=== PATIENT | male | born 1935 | race African-American/Black ===

== ENCOUNTER → 2018-07-31 09:59 | Outpatient (CLI) | payer MEDICARE, SELFPAY ==
--- NOTE | 2018-07-31 10:10 | NM_ITS ---
CLINICAL: 83-year-old male with reported history of clinical hyperthyroidism. I-123 THYROID UPTAKE and SCAN COMPARISON: None available FINDINGS: The patient was administered a 298 uCi I-123 capsule by mouth. The 4-hour I-123 radioactive iodine thyroidal uptake was calculated to be 92.1 % (normal 5 to 25 %). The 24-hour I-123 radioactive iodine thyroidal uptake was calculated to be 72.6 % (normal 5 to 40 %). The I-123 thyroid scan demonstrates homogeneous radiopharmaceutical concentration throughout the right lobe of a prominent sized U-shaped thyroid gland. The left lobe is larger than right. A hypofunctioning-cold nodule is demonstrated in the inferior pole of the left lobe of thyroid colloid and apparent thyroid isthmus. NM/Thyroid Uptake Single or Mult IMPRESSION: 1. ABNORMAL, ELEVATED 4- and 24-hour I-123 radioactive iodine thyroidal uptakes. 2. The I-123 thyroid scan in conjunction with the calculated iodine uptake values is consistent with the presence of a diffuse toxic goiter. 3. The hypofunctioning-cold nodule delineated in the left lobe thyroid colloid may be further investigated with thyroid ultrasound. 4. There is scintigraphic evidence of rapid intra-thyroid iodine turnover; manifest as the elevated early (4-hour) radioactive iodine uptake value exceeding the late (24-hour) uptake value, which may be associated with a 50% failure rate with I-131 therapy. This may necessitate anti-thyroid pharmacologic intervention with repeat thyroid scan and uptake to ensure resolution of this presentation and success of anticipated I-131 therapeutic intervention. (Magalis et al, J Nucl Med 36: 14P, 1994). Electronically Signed: Emerson Reardon DO at 23:40 EDT Tel , Service support ,
== END ==
PROVIDERS: Family Provider Family Medicine; PCP Family Medicine; Referring Provider Internal Medicine Endocrinology, Diabetes & Metabolism; Visit Provider Internal Medicine Endocrinology, Diabetes & Metabolism
DX: E05.00 Thyrotoxicosis with diffuse goiter without thyrotoxic crisis or storm (principal)
CPT/HCPCS: 78012; A9516

== ENCOUNTER → 2018-11-22 10:45 | Outpatient (CLI) | payer MEDICARE, SELFPAY ==
[2018-10-05 09:31] VITALS: BMI 30.7
--- NOTE | 2018-11-22 10:47 | ECHOD_ITS ---
Reason For Study: Afib/Flutter Procedure This was a 2D Doppler, Color Flow transthoracic echocardiogram. Exam performed in department. Left Ventricle Normal LV size. Left ventricular systolic function is normal. The estimated ejection fraction is 60 %. Unable to assess diastolic dysfunction due to arrhythmia. No regional wall motion abnormalities noted. Right Ventricle Normal RV size. Normal systolic function. Atria The left atrium is moderately enlarged. The right atrium is mildly enlarged. Mitral Valve Normal mitral valve. Mild (1+) eccentric mitral valve insufficiency. Tricuspid Valve Normal tricuspid valve. Mild to moderate (1-2+) tricuspid valve insufficiency. Right ventricular systolic pressure estimated to be 53 mmHg. Moderate pulmonary hypertension. Aortic Valve Trisinus/trileaflet aortic valve. Mild focal aortic valve calcification. Mild (1+) aortic valve insufficiency. Pulmonic Valve Normal pulmonic valve. Great Vessels Normal aortic root. The pulmonary artery is normal size. Normal inferior vena cava. Pericardium/Pleural No pericardial effusion. MMode/2D Measurements & Calculations LVIDd: 3.8 cm IVSd: 1.0 cm LA dimension: 3.8 cm LVIDs: 2.3 cm LVPWd: 0.90 cm RVDd: 4.8 cm FS: 39.1 % LAV(MOD-bp): 99.1 ml LA A4 area: 30.0 cm2 RA A4 area: 24.5 cm2 LAV(MOD-bp) Indexed: 47.0 ml/m2 LAV(MOD-sp2): 93.6 ml LAV(MOD-sp4): 101.9 ml Doppler Measurements & Calculations MV E max kathleen: 109.2 cm/sec Ao V2 max: 129.4 cm/sec AI max kathleen: 355.2 cm/sec Ao max P.7 mmHg AI max P.5 mmHg AI dec slope: 107.3 cm/sec2 AI P1/2t: 969.7 msec LV V1 max: 84.1 cm/sec PA V2 max: 108.3 cm/sec TR max kathleen: 364.8 cm/sec LV V1 max P.8 mmHg TR max P.2 mmHg Interpretation Summary Normal LV size. Left ventricular systolic function is normal. The estimated ejection fraction is 60 %. Unable to assess diastolic dysfunction due to arrhythmia. The left atrium is moderately enlarged. Mild (1+) eccentric mitral valve insufficiency. Right ventricular systolic pressure estimated to be 53 mmHg. Moderate pulmonary hypertension. Mild (1+) aortic valve insufficiency. Ordering Physician: Mandeep Jung Referring Physician: Mandeep Jung Performed By: Ravindra Spencer RCS
== END ==
PROVIDERS: Family Provider Family Medicine; PCP Family Medicine; Referring Provider Internal Medicine Cardiovascular Disease; Visit Provider Internal Medicine Cardiovascular Disease
DX: I27.21 Secondary pulmonary arterial hypertension (principal)
CPT/HCPCS: 93306

== ENCOUNTER → 2019-01-16 14:01 | Outpatient (CLI) | payer MEDICARE, SELFPAY ==
[2018-12-08 14:56] VITALS: BMI 29.7
--- NOTE | 2019-01-16 14:00 | ASPIG_PTH ---
PATIENT: JEAN PAUL GEE SR LOC: U#:[id number] AGE/SX: 89/M ROOM: RE01/16/[address]: Dr. Phoebe Vazquez MD : 1935 BED: DIS: SPEC #: [id number] RECD: 01/17/19 09:11 STATUS: DUSTIN NILSA #: [id number] EVA: 01/16/19 14:[address]: Phoebe Vazquez DEPT: CYTOLOGY RECD BY: José Luis Goldman ENTERED: 01/17/19 09:11 SP TYPE: ASP OUT OTHR DR: Dr. Dayron Adamson MD Tissues: Thyroid gland, NOS Procedures: FNA Specimen Adequacy Special Stain Group II Surgery Specimen Level IV Cytology Other HEADER OPERATION: Left thyroid nodule biopsy PRE-OP DIAGNOSIS: Left thyroid nodule TISSUE SUBMITTED: Left lobe thyroid nodule, ultrasound-guided FNA DIAGNOSIS CYTOLOGY Left thyroid lobe nodule, ultrasound-guided FNA (smears and cell block): Consistent with follicular nodule with extensive cystic changes, focal H?rthle features and mild atypia. Adequate for evaluation. See comment. SJ:rg 01/18/19 COMMENT The specimen is evaluated at the time of FNA by Dr. Vo. Immediate Evaluation: Set #1 - Mostly macrophages are noted. Set #2 - Mostly macrophages are noted. Correlation with clinical, radiologic findings and appropriate follow up are necessary. Case has been reviewed in consultation with Dr. Henning who concurs with the above diagnosis. IDC:AM CYTOLOGY STUDY Slides are reviewed. CYTOLOGY GROSS Set #1 - Received in two passes is 0.4 ml of bloody fluid labeled with the patient's name, and designated left thyroid lobe nodule. Six imprints and four paps are made from the submitted fluid and the rest is added to CytoLyt for cell block preparation. Submitted for cytology study. Set #2 - Received in one pass is 0.1 ml of bloody fluid labeled with the patient's name, and designated left thyroid lobe nodule. Four imprints and two paps are made from the submitted fluid and the rest is added to CytoLyt for cell block preparation. Submitted for cytology study. / VENU:mychal 01/16/19 TC:5 CPT: 84834, 50029, 20225, 82999
--- NOTE | 2019-01-16 14:06 | US_ITS ---
PROCEDURE: ULTRASOUND GUIDED LEFT THYROID FNA/BIOPSY. DATE: January 16, 2019. INDICATION: Male, 83 years old. Left thyroid nodule PHYSICIAN: Dre Jimenez M.D. MEDICATIONS: 2% lidocaine administered subcutaneously for local anesthesia. ACCESS SITE: Left - anterior approach. NEEDLE: 25-gauge FNA needle. SPECIMEN: Multiple FNA specimen collected and given to pathology. EBL: None. COMPLICATIONS: None immediate. PROCEDURE: The risks, benefits, and alternatives to the procedure were explained to the patient. The specific risk of hemorrhage requiring further treatment or intervention was detailed and accepted. Written informed consent was obtained. The patient was brought into the ultrasound room and placed in the supine position on the stretcher. An appropriate entry site was identified. The overlying skin was prepped and draped in the usual sterile fashion. 2% lidocaine was administered subcutaneously for local anesthesia. Under ultrasound guidance, a 25-gauge FNA needle was advanced into the lesion. Aspiration was performed and the needle was withdrawn. A total of 4 passes were performed with specimen collected and given to the pathologist who was present during the procedure. Hemostasis was achieved with manual compression. Repeat ultrasound images of the biopsy area was performed which demonstrated no gross bleeding or hematoma. An antibiotic ointment dressing was placed and the patient was given an icepack. The patient tolerated the procedure well without immediate complications. The patient was discharged in stable condition. US/FNA 1st Biopsy w/ US IMPRESSION: Successful ultrasound-guided left thyroid nodule FNA/biopsy, as described above. Electronically Signed: Dre Jimenez, at 15:45 EDT , Service support ,
== END ==
PROVIDERS: Family Provider Family Medicine; PCP Family Medicine; Referring Provider Internal Medicine Endocrinology, Diabetes & Metabolism; Visit Provider Internal Medicine Endocrinology, Diabetes & Metabolism
DX: E04.1 Nontoxic single thyroid nodule (principal)
CPT/HCPCS: 10005; 88161; 88172; 88305; 88313

== ENCOUNTER → 2019-06-28 13:09 | Outpatient (CLI) | payer MEDICARE, SELFPAY ==
[2018-10-05 09:31] VITALS: BMI 30.7
[2019-06-25 12:41] VITALS: BMI 30.1
--- NOTE | 2019-06-28 13:15 | US_ITS ---
STUDY: THYROID ULTRASOUND REASON FOR EXAM: Male, 84 years old. COLD NODULE TECHNIQUE: Ultrasound evaluation of the thyroid was performed with real-time and static iyer-scale imaging. COMPARISON: Thyroid uptake July 31, 2018 FINDINGS: RIGHT LOBE: The right lobe of the thyroid gland measures 6.1 x 2.9 x 1.9 cm. There is a heterogeneous echotexture. Multiple thyroid nodules. Dominant nodules: 1.1 x 1.6 x 1.1 cm solid nodule regular in shape with intranodular vascularity and a 1.4 x 1.4 x 1.2 cm solid regular nodule with intranodular vascularity. LEFT LOBE: The left lobe of the thyroid gland measures 9.6 x 4.9 x 4.8 cm. There is a heterogeneous echotexture. The dominant nodule is 3.9 x 4.3 x 3.7 cm in the lower pole. This is a solid irregular nodule. Portion of the left thyroid is below the field of view. ISTHMUS: The isthmus measures 6 millimeter. US/Thyroid IMPRESSION: Enlarged multinodular thyroid with generally heterogeneous parenchyma. There are 2 dominant solid well-defined and regular nodules of the right thyroid measuring 1.1 x 1.6 x 1.0 cm and 1.4 x 1.4 x 1.2 cm. There is a dominant solid nodule of the left thyroid lower pole measuring 3.9 x 4.3 x 3.7 cm. A portion of the left thyroid is not visible below the clavicle. No images are provided from the fine needle biopsy performed on January 16, 2019. However, the measurement of the biopsied nodule does not appear to be substantially different from today''s exam. Electronically Signed: Radha White MD at 18:56 EST , Service support ,
== END ==
PROVIDERS: Family Provider Family Medicine; PCP Family Medicine; Referring Provider Internal Medicine Endocrinology, Diabetes & Metabolism; Visit Provider Internal Medicine Endocrinology, Diabetes & Metabolism
DX: E04.1 Nontoxic single thyroid nodule (principal)
CPT/HCPCS: 76536

== ENCOUNTER → 2020-04-16 13:44 | Outpatient (CLI) | payer MEDICARE, SELFPAY ==
[2019-06-25 12:41] VITALS: BMI 30.1
[2020-02-12 13:45] VITALS: BMI 29.2
--- NOTE | 2020-04-16 13:49 | US_ITS ---
STUDY: THYROID ULTRASOUND REASON FOR EXAM: Male, 85 years old. Nodule TECHNIQUE: Ultrasound evaluation of the thyroid was performed with real-time and static iyer-scale imaging. COMPARISON: Comparison is made with prior examination dated 06/28/2019. FINDINGS: RIGHT LOBE: The right lobe of the thyroid gland is enlarged and measures 6.2 cm x 2.9 cm x 2.6 cm. There is a heterogeneous echotexture. Once again, 4 nodules are seen. There is a stable dominant nodule measuring 1.1 cm x 1.1 cm x 0.7 cm with the perinodular flow. A similar-appearing nodule measuring 1.1 cm x 1.17 x 1.2 cm is seen in the inferior pole with satish and infrahilar nodular flow. There is also evidence of a 1.1 cm x 1 cm x 1.2 cm heterogeneous isoechoic solid nodule in the lower pole with satish and infrahilar nodular flow. LEFT LOBE: The left lobe of the thyroid gland is enlarged and measures 9.4 cm x 6.8 ANDRA by 4.1 cm. There is a heterogeneous echotexture. There is a dominant nodule measuring 4.4 cm x 5.4 cm x 4.4 cm in the lower pole. This has increased in size as compared to prior study. ISTHMUS: The isthmus measures 16 mm. The regional lymph nodes are normal. US/Thyroid IMPRESSION: Bilateral enlargement of the thyroid worse on the left side with the dominant solid nodules in both lobes worse in the left lobe measuring 5.4 cm x 4.4 cm by 4.4 cm. This has increased in size as compared to prior study. Electronically Signed: Dre Jimenez, at 9:49 EST , Service support ,
== END ==
PROVIDERS: PCP Family Medicine; Referring Provider Internal Medicine Endocrinology, Diabetes & Metabolism; Visit Provider Internal Medicine Endocrinology, Diabetes & Metabolism
DX: E04.1 Nontoxic single thyroid nodule (principal); E55.9 Vitamin D deficiency, unspecified; I48.91 Unspecified atrial fibrillation; E05.00 Thyrotoxicosis with diffuse goiter without thyrotoxic crisis or storm
CPT/HCPCS: 76536

== ENCOUNTER → 2021-04-27 14:49 | Outpatient (CLI) | payer MEDICARE, SELFPAY ==
--- NOTE | 2021-04-27 15:00 | US_ITS ---
EXAM: US Soft Tissues Head and Neck, Thyroid CLINICAL INDICATION: 86 years old, Male; NODULE TECHNIQUE: Greyscale and color doppler imaging was performed of the thyroid gland. This report was created using [employer] report [employer] technology. COMPARISON: None. FINDINGS: Left thyroid lobe: 2.8 x 2.1 x 2.3 cm nodule in the mid left thyroid lobe. 3.2 x 2.8 x 2.9 cm nodule in the inferior left thyroid lobe. The left thyroid lobe measures 10.9 x 5.2 x 4.9 cm. Smaller nodules are present in the left thyroid lobe for which no follow-up is necessary. Homogeneous echotexture with normal vascularity. Right thyroid lobe: 1.4 x 1.5 x 1.6 cm nodule in the inferior right thyroid lobe. The right thyroid lobe measures 6.1 x 2.9 x 2.3 cm. Smaller nodules are present in the right thyroid lobe for which no follow-up is necessary. Homogeneous echotexture with normal vascularity. Isthmus: The isthmus measures 7 mm in thickness. No thyroid nodules are present. US/Thyroid IMPRESSION: 1. Thyromegaly with multiple thyroid nodules consistent with multinodular goiter. 2. 1.4 x 1.5 x 1.6 cm nodule in the inferior right thyroid lobe. 3. 2.8 x 2.1 x 2.3 cm nodule in the mid left thyroid lobe. 4. 3.2 x 2.8 x 2.9 cm nodule in the inferior left thyroid lobe. RECOMMENDATIONS: 1. 1.4 x 1.5 x 1.6 cm nodule in the inferior right thyroid lobe. This nodule is mixed cystic and solid, hyperechoic or isoechoic, [id number], smoothly marginated and contains no echogenic foci. This nodule is not suspicious and no FNA or follow-up is necessary. 2. 2.8 x 2.1 x 2.3 cm nodule in the mid left thyroid lobe. This nodule is mixed cystic and solid, hyperechoic or isoechoic, [id number], smoothly marginated and contains no echogenic foci. This nodule is mildly suspicious. Recommend FNA evaluation. 3. 3.2 x 2.8 x 2.9 cm nodule in the inferior left thyroid lobe. This nodule is solid or almost completely solid, hypoechoic, [id number]-[id number], smoothly marginated and contains no echogenic foci. This nodule is moderately suspicious. Recommend FNA evaluation. Electronically Signed: Sebastian Gallagher MD at 6:17 EST Tel , Service support ,
== END ==
PROVIDERS: PCP Family Medicine; Referring Provider Internal Medicine Endocrinology, Diabetes & Metabolism; Visit Provider Internal Medicine Endocrinology, Diabetes & Metabolism
DX: E04.1 Nontoxic single thyroid nodule (principal)
CPT/HCPCS: 76536

== ENCOUNTER 2022-01-16 06:55 | Inpatient (IN) | payer MEDICARE, SELFPAY ==
[2022-01-16] VITALS (40 sets, daily range): BP systolic 69–124; BP diastolic 48–104; PULSE 11–167; RESP 13–25; TEMP 35.9–37.8; O2SAT 93–100; BMI 27.6; BMI 26.3
--- NOTE | 2022-01-16 07:12 | RAD_ITS ---
EXAM: XR CHEST, 1 VIEW CLINICAL INDICATION: hypotension TECHNIQUE: Frontal view of the chest. This report was created using [employer] report generation technology. COMPARISON: XR Chest dated december 14 2016 FINDINGS: LUNGS AND PLEURAL SPACES: Bibasilar pulmonary densities suggestive of atelectasis. No pneumothorax. No effusion. HEART: Normal heart size. MEDIASTINUM: Trachea is shifted to the right of midline at the thoracic inlet which may be secondary to enlarged thyroid gland. BONES/JOINTS: No acute abnormality. SOFT TISSUES: See above. UPPER ABDOMEN: Elevated left hemidiaphragm. RAD/Chest 1 View (Portable) IMPRESSION: Bibasilar atelectasis. As above. Electronically Signed: Ford Alvarez MD at 7:56 EDT ,
--- NOTE | 2022-01-16 07:13 | EKG12_ITS ---
Test Reason : DIZZY Blood Pressure : / mmHG Vent. Rate : 139 BPM Atrial Rate : 000 BPM P-R Int : 000 ms QRS Dur : 094 ms QT Int : 306 ms P-R-T Axes : 000 -12 -16 degrees QTc Int : 465 ms Atrial fibrillation with rapid ventricular response with premature ventricular or aberrantly conducte d complexes Nonspecific ST abnormality Abnormal ECG Confirmed by AILYN CRAFT, SAURABH ([id number]), online editor DEBBY CULVER ([id number]) on 01/19/2022 9:03:14 AM Referred By: PETERSON Confirmed By:AJ ROBERTSON MD
--- NOTE | 2022-01-16 07:14 | EX.ED.DYSGE1 ---
HPI History of Present Illness Chief Complaint: Dizziness Informant: patient and spouse/S.O. Narrative Narrative: 86-year-old male with a history of CHF persistent atrial fibrillation and pulmonary hypertension presenting to the emergency room with near syncope and weakness. Patient was noted this morning to have almost fallen at home. He felt very lightheaded/dizzy. He is on apixaban for persistent atrial fibrillation. He has not required any medication changes recently. His notes that he really has not ate much for 3 days. He denies any pain or fever. He denies shortness of breath or leg swelling. [facility] Medical History BPH (benign prostatic hyperplasia) BPH loc w urin obs/LUTS Chronic diastolic heart failure Essential (primary) hypertension Graves disease Longstanding persistent atrial fibrillation Nonrheumatic tricuspid (valve) insufficiency Secondary pulmonary arterial hypertension Home Medications acetaminophen 325 mg tablet 650 mg PO Q6H PRN PRN Fever 12/21/16 [Rx Last Taken Unknown] mirtazapine 15 mg tablet 15 mg PO 2100 #30 tabs 12/21/16 [Rx Last Taken Unknown] tamsulosin 0.4 mg capsule 0.4 mg PO DAILY #90 caps 12/08/18 [Rx Last Taken Unknown] apixaban 5 mg tablet 5 mg PO BID #180 tabs 01/26/21 [Rx Last Taken Unknown] furosemide 40 mg tablet (Lasix) 40 mg PO DAILY #90 tabs 02/16/21 [Rx Last Taken Unknown] lisinopril 5 mg tablet 5 mg PO DAILY #90 tabs 02/17/21 [Rx Last Taken Unknown] metoprolol tartrate 50 mg tablet 50 mg PO BID #180 tabs 05/18/21 [Rx Last Taken Unknown] methimazole 5 mg tablet 15 mg PO DAILY 01/16/22 [History Last Taken Unknown] Allergy/AdvReac Type Severity Reaction Status Date / Time rivaroxaban [From Xarelto] AdvReac Severe hematuria Verified 01/16/22 07:01 Penicillins [PCN] AdvReac dont Verified 01/16/22 07:01 remember its long time ago Surgical History History of hernia repair Social History Smoking Status: Never smoker alcohol intake: never substance use type: does not use ROS ROS ED Constitutional Constitutional ED: Denies chills or weight loss Eyes Eyes: Denies change in vision or diplopia ENT ENT ED: Denies ear pain, rhinorrhea or sore throat Cardiovascular Cardiovascular: Denies chest pain, orthopnea, palpitations or racing heartbeat Respiratory/Chest Respiratory/Chest: Denies cough, dyspnea or orthopnea Gastrointestinal Gastrointestinal: Denies abdominal pain, diarrhea, nausea or vomiting Genitourinary Genitourinary ED: Denies dysuria, hematuria or urinary frequency Musculoskeletal Musculoskeletal: Denies arthralgias or myalgias Integumentary Denies abscess or rash Neurologic Neurologic: Reports weakness; Denies headache(s) or paresthesias Psychiatric Psychiatric: Denies anxiety, depression, suicidal ideation or suicidal thoughts Endocrine Endocrinology: Denies polydipsia, polyphagia or polyuria Allergic/Immunologic Allergic/Immunologic ED: Denies mouth swelling, tongue swelling or urticaria EXAM Physical Exam Const Vital Signs: 01/16/22 06:56 01/16/22 07:03 01/16/22 07:04 Temperature 96.6 F L Temperature Source Temporal Pulse Rate 150 H 167 H Respiratory Rate 23 H 19 H Respiratory Effort Normal Respiratory Pattern Normal Blood Pressure 82/54 L Blood Pressure Mean 63 Pulse Ox 96 Oxygen Delivery Method Room Air Room Air 01/16/22 08:03 01/16/22 08:52 Temperature 96.6 F L Temperature Source Temporal Pulse Rate 107 H 132 H Respiratory Rate 24 H 24 H Respiratory Effort Respiratory Pattern Blood Pressure 81/57 L 80/53 L Blood Pressure Mean 65 62 Pulse Ox 97 96 Oxygen Delivery Method Room Air Positive well nourished and well developed General Appearance ED: well developed HEENT Reports normocephalic, head/scalp atraumatic and moist mucous membranes Eyes PERRL and EOMs intact bilaterally Neck no lymphadenopathy, supple and no JVD Resp normal respiratory effort and clear to auscultation bilaterally Cardio no murmurs Rate: tachycardic and other Rhythm: abnormal rhythm irregularly irregular GI normal to inspection, nondistended, normoactive bowel sounds and non-tender Palpation: soft Back/Spine no CVA tenderness and normal ROM Extremity normal to inspection General Extremety ED: Negative for edema General Extremity: Negative for edema Neuro oriented x3 and CN's II-XII intact bilaterally Sensorium / Orientation: alert Motor Exam: strength 5/5 throughout Psych mental status grossly normal Mood & Affect: Negative for depressed or tearful Skin no rashes or lesions noted and no wounds MDM MDM MDM Narrative Medical decision making narrative: Patient's white count 19.2 with a hemoglobin of 14.4. Creatinine significantly elevated off baseline at 3 with a BUN of 74. Potassium 3.5 sodium 137. Anion gap is elevated at 18 with a lactic acid level of 9.7. My interpretation of the chest x-ray is no acute process. CT of the abdomen pelvis demonstrates a acute small bowel obstruction located in the mid abdomen and most likely due to prior adhesions. 2017 the patient underwent a laparotomy for small bowel obstruction with Dr. Thao and Dr. Simmons. His blood pressures have been improving with fluids. He received Cipro Flagyl and NG tube was placed. Post placement film was read by myself is an adequate positioning of the NG tube. The NG tube was pulled back and advanced. Multiple nurses and attempts were made with unsuccessful placement of the NG tube. The patient requested a break in attempts. I discussed the case with Dr. Ramey (Surgery) and Dr Concepcion (IM). Plan is admission into the ICU. Sepsis reeval: Patient was reexamined multiple times during his ED course. His mentation continues to be normal. He still has good capillary refill. The abdomen continues to be benign. Given his exam and his dehydration and the fact that he is on full anticoagulation and responding to fluids I do not think he needs a central line at this time. I think we should continue fluid resuscitation. Lab Data Attestation: I reviewed the patient's lab results. Labs: Laboratory Results - last 24 hr 01/16/22 01/16/22 01/16/22 07:07 07:07 07:07 WBC 19.2 H RBC 4.74 Hgb 14.4 Hct 41.5 MCV 87.6 MCH 30.4 MCHC 34.7 RDW Std Deviation 40.3 RDW Coeff of Anatoly 12.6 Plt Count 240 MPV 10.7 Immature Gran % (Auto) 0.600 Neut % (Auto) 83.4 H Lymph % (Auto) 6.2 L [place] % (Auto) 9.7 Eos % (Auto) 0.0 Baso % (Auto) 0.1 Absolute Neuts (auto) 16.0 H Absolute Lymphs (auto) 1.19 Nucleated RBC % 0 Differential Comment SCANNED Diff Path Review May foll PT 20.9 H INR 1.8 APTT 30.3 Sodium 137 Potassium 3.5 Chloride 90 L Carbon Dioxide 29.0 Anion Gap 18 H BUN 74 H Creatinine 3.04 H Estim Creat Clear Calc 18.01 Est GFR (MDRD) Af Amer 25 L Est GFR (MDRD) Non-Af 21 L BUN/Creatinine Ratio 24.3 H Glucose 195 H Lactic Acid Calcium 9.6 Magnesium 2.3 Total Bilirubin 1.30 H AST 9 L ALT 13 L Alkaline Phosphatase 62 Troponin I High Sens 66 Total Protein 8.2 Albumin 3.7 Globulin 4.5 H Albumin/Globulin Ratio 0.8 L Urine Color Urine Clarity Urine pH Ur Specific [place] Urine Protein Urine Glucose (UA) Urine Ketones Urine Occult Blood Urine Nitrite Urine Bilirubin Urine Urobilinogen Ur Leukocyte Esterase Urine RBC Urine WBC Ur Squamous Epith Cells Urine Bacteria Urine Mucus POC Glucose 01/16/22 01/16/22 01/16/22 07:07 07:23 08:48 WBC RBC Hgb Hct MCV MCH MCHC RDW Std Deviation RDW Coeff of Anatoly Plt Count MPV Immature Gran % (Auto) Neut % (Auto) Lymph % (Auto) [place] % (Auto) Eos % (Auto) Baso % (Auto) Absolute Neuts (auto) Absolute Lymphs (auto) Nucleated RBC % Differential Comment Diff Path Review PT INR APTT Sodium Potassium Chloride Carbon Dioxide Anion Gap BUN Creatinine Estim Creat Clear Calc Est GFR (MDRD) Af Amer Est GFR (MDRD) Non-Af BUN/Creatinine Ratio Glucose Lactic Acid 9.7 H* Calcium Magnesium Total Bilirubin AST ALT Alkaline Phosphatase Troponin I High Sens Total Protein Albumin Globulin Albumin/Globulin Ratio Urine Color Yellow Urine Clarity Clear Urine pH 5.0 Ur Specific [place] 1.015 Urine Protein 30 H Urine Glucose (UA) Normal Urine Ketones Negative Urine Occult Blood Negative Urine Nitrite Negative Urine Bilirubin 3 H Urine Urobilinogen Normal Ur Leukocyte Esterase 25 H Urine RBC 0 SEEN Urine WBC 0 SEEN Ur Squamous Epith Cells 0 SEEN Urine Bacteria 0 SEEN Urine Mucus 1+ POC Glucose 190 H Radiography Diagnostic Testing: Clinical Impression(s) from Imaging Studies Chest X-Ray 01/16/22 07:12 IMPRESSION: Bibasilar atelectasis. As above. Electronically Signed: Ford Alvarez MD at 7:56 EDT , Abdomen/Pelvis CT 01/16/22 07:51 IMPRESSION: 1. High-grade small bowel obstruction related to adhesions within the left-side of the mid abdomen likely. 2. Left inguinal hernia containing small bowel. 3. Stable hepatic hemangiomata. Electronically Signed: Ford Alvarez MD at 8:56 EDT , ADDENDUM: 01/16/22 0903 IMPRESSION: 1. High-grade small bowel obstruction related to adhesions within the left-side of the mid abdomen likely. 2. Left inguinal hernia containing small bowel. 3. Stable hepatic hemangiomata. N.B. : The above Results were Read Back by Ford Alvarez MD to Luis Gannon DO, and understanding confirmed on 01/16/2022 08:56:59 (ET). Electronically Signed: Ford Alvarez MD at 8:56 EDT , EKG Initial EKG: Attestation: I personally reviewed and interpreted this EKG as follows: Comments: Atrial fibrillation with rapid ventricular response. Ventricular rate of 139 bpm. PVC noted Critical Care Time Critical Care Time: Yes Critical care time (excluding procedures): 30-74 minutes (35 min), Including time spent:, Discussing w/Patient &/or Family/Alto Singer, Discussing w/Consultants and Arranging Admission or Transfer Discharge Plan Dx/Rx/DC Orders Clinical Impression: Atrial fibrillation with RVR, Acute hypotension, Acute renal failure, SBO (small bowel obstruction), Inguinal hernia, Acute dehydration Disposition Disposition: Acute Care [facility]
[2022-01-16] MEDS: Metoprolol Tartrate 5 MG/5 ML Vial IV (07:18)
[2022-01-16] MEDS: 0.9% Normal Saline 1,000 ML 1000 ML IV (07:19)
[2022-01-16 07:25] LABS: Bedside Glucose 190 mg/dL (74-106)
[2022-01-16 07:26] LABS: Absolute Lymphocyte Count 1.19 X10^3/uL (0.83-4.51); Basophil# 0.02 X10^3/uL; Basophil% 0.1 % (0-1); Hematocrit 41.5 % (40-54); Hemoglobin 14.4 g/dL (13.0-16.5); Lymphocyte # 1.19 X10^3/ul (0.83-4.51); Lymphocyte % 6.2 % (19-41); Mean Corp Hgb Conc 34.7 g/dL (32-36); Mean Corpuscular Hgb 30.4 pg (27.0-32.0); Mean Corpuscular Volume 87.6 fL (80-94); Mean Platelet Vol. 10.7 fl (6.2-12.0); Monocyte# 1.86 X10^3/uL; Monocyte% 9.7 % (0-10); NRBC Flagged by Analyzer 0 % (0-5); Neutrophil # 15.96 X10^3/uL (2.7-7.7); Neutrophil % 83.4 % (47-70); POSITIVE DIFFERENTIAL YES; Platelet Count 240 K/mm3 (150-450); RBC Distribution Width CV 12.6 % (11.6-14.6); RBC Distribution Width SD 40.3 fl (35.1-43.9); Red Blood Count 4.74 M/mm3 (4.6-6.2); White Blood Count 19.2 K/mm3 (4.4-11.0)
[2022-01-16 07:33] LABS: Differential Indicated SCAN CRITERIA MET
[2022-01-16 07:38] LABS: International Normalized Ratio 1.8; Prothrombin Time (Protime)PT. 20.9 SECONDS (11.7-14.9)
[2022-01-16 07:39] LABS: Partial Thromboplast Time 30.3 Seconds (24.1-36.2)
[2022-01-16 07:46] LABS: ALB/GLOB Ratio 0.8 RATIO (0.9-2.4); AST(SGOT) 9 U/L (15-37); Alanine Aminotransfer ALT/SGPT 13 U/L (16-61); Albumin, Serum 3.7 g/dL (3.2-5.0); Alkaline Phosphatase 62 U/L (45-117); Anion Gap 18 (5-15); BUN 74 mg/dL (7-18); BUN/Creat Ratio 24.3 RATIO (10-20); Calcium,Total 9.6 mg/dL (8.5-10.1); Chloride 90 mmol/L (98-107); Creatinine, Serum 3.04 mg/dL (0.70-1.30); EST Glomerular Filtration Rate 21 mL/min (>60); Est Glom Filt Rate - Afr Amer 25 mL/min (>60); Estimated Creatinine Clearance 18.01 ml/min; Globulin 4.5 g/dL (2.2-4.2); Glucose 195 mg/dL (74-106); Magnesium 2.3 mg/dL (1.6-2.6); Potassium 3.5 mmol/L (3.5-5.1); Protein, Total 8.2 g/dL (6.4-8.2); Sodium Level 137 mmol/L (136-145); Troponin-I HS 66 pg/mL (3.0-78.0)
--- NOTE | 2022-01-16 07:51 | CT_ITS ---
We are attempting to reach an attending provider to discuss findings. An addendum with communication details will be sent when the communication is complete. EXAM: CT ABDOMEN AND PELVIS WITHOUT INTRAVENOUS CONTRAST CLINICAL INDICATION: vomiting TECHNIQUE: Helically acquired images were obtained of the abdomen and pelvis without intravenous contrast. This CT exam was performed using one or more of the following dose reduction techniques: automated exposure control, adjustment of the mA and/or kV according to patient size, and/or use of iterative reconstruction technique. This report was created using [email or web address] report generation technology. COMPARISON: CT Abdomen Pelvis dated 12/05/2016 FINDINGS: LOWER THORAX: Small bilateral pleural effusions and mild bibasilar atelectasis. Heart is mildly enlarged. ABDOMEN: LIVER: 2.4 cm hypodense area within hepatic segment 8 and 3.4 cm lesion within hepatic segment 6 again seen with prior noted enhancement pattern indicative of hemangiomata. GALLBLADDER AND BILE DUCTS: Normal. No calcified gallstones. No gallbladder distention or wall edema. No intra- or extrahepatic biliary ductal dilation. PANCREAS: Normal. No focal cystic mass. SPLEEN: Normal. Normal size without focal cystic or solid mass. ADRENALS: Normal. No nodules. KIDNEYS AND URETERS: Normal. No hydronephrosis. STOMACH AND BOWEL: Prominent distention of the esophagus, stomach, duodenum and multiple small bowel loops. Transition to nondistended small bowel noted within the left side of the mid abdomen with air is also small bowel feces. Pattern is consistent with high-grade small bowel obstruction likely related to adhesions from prior surgery. More distal small bowel and large bowel are relatively decompressed. Left inguinal hernia containing loop of small bowel without evidence of the point of obstruction at the hernia. PELVIS: APPENDIX: No evidence of acute appendicitis. BLADDER: Normal. REPRODUCTIVE: Prostate gland is moderately enlarged. ABDOMEN and PELVIS: INTRAPERITONEAL SPACE: Normal. No ascites or other fluid collection. No free air. BONES/JOINTS: Normal. No suspicious lytic or blastic abnormality. SOFT TISSUES: See above. VASCULATURE: Normal. Abdominal aorta is non-dilated. LYMPH NODES: Normal. No enlarged lymph nodes. CT/Abdomen/Pelvis without Cont IMPRESSION: 1. High-grade small bowel obstruction related to adhesions within the left-side of the mid abdomen likely. 2. Left inguinal hernia containing small bowel. 3. Stable hepatic hemangiomata. Electronically Signed: Ford Alvarez MD at 8:56 EDT ,
[2022-01-16 08:01] LABS: Lactic Acid 9.7 mmol/L (0.4-1.9)
[2022-01-16 08:24] LABS: Differential Comment SCANNED
[2022-01-16] MEDS: 0.9% Normal Saline 1,000 ML 999 ML IV ×3 (08:33→13:05)
[2022-01-16 08:53] LABS: Bacteria 0 SEEN /hpf (None Seen); Red Blood Cells-Urine 0 SEEN /hpf (0-5); Squamous Epithelial Cells - UA 0 SEEN /hpf (0-5); White Blood Cells 0 SEEN /hpf (0-5)
--- NOTE | 2022-01-16 08:56 | RAD_ITS ---
EXAM: XR ABDOMEN, 1 VIEW CLINICAL INDICATION: ng placement -- KUB with both diaphragms for NG/OG Verification TECHNIQUE: Frontal supine view of the abdomen/pelvis. This report was created using [employer] report generation technology. COMPARISON: None. FINDINGS: LOWER THORAX: No acute pathology. GASTROINTESTINAL TRACT: Incomplete evaluation of the abdomen. Small bowel distention which may represent ileus. ORGANS: No organomegaly. BONES/JOINTS: No acute abnormality. SOFT TISSUES: No pathological calcification. TUBES, LINES AND DEVICES: Endogastric tube is kinked at the proximal sidehole which lies just below the esophagogastric junction. Distal tip of the endogastric tube is deflected back into the distal esophagus. RAD/Abdomen Single View (Portable) IMPRESSION: As above. Electronically Signed: Ford Alvarez MD at 13:24 EDT ,
--- NOTE | 2022-01-16 08:56 | RAD_ITS ---
STUDY: X-RAY - ABDOMEN/PELVIS REASON FOR EXAM: Male, 86 years old. NG PLACEMENT #3 TECHNIQUE: Single AP view of the abdomen / pelvis. COMPARISON: None. FINDINGS: Interval retraction of the nasogastric tube which is coiled over on itself in the proximal esophagus. There is an unremarkable bowel gas pattern. The visualized liver, spleen and kidneys are grossly normal in size and morphology. Normal soft tissue structures. Normal visualized osseous structures. RAD/Abdomen Single View IMPRESSION: Nasogastric tube coiled likely in the proximal esophagus. Electronically Signed: Emerson Luong MD at 13:40 EDT ,
--- NOTE | 2022-01-16 08:56 | RAD_ITS ---
EXAM: XR ABDOMEN, 1 VIEW CLINICAL INDICATION: NG Insertion TECHNIQUE: Frontal supine view of the abdomen/pelvis. This report was created using [employer] report generation technology. COMPARISON: XR Abdomen dated 01/16/2022 FINDINGS: LOWER THORAX: See below. GASTROINTESTINAL TRACT: Interval decompression of the stomach. ORGANS: No organomegaly. BONES/JOINTS: No acute abnormality. SOFT TISSUES: No pathological calcification. TUBES, LINES AND DEVICES: Endogastric tube is kinked at the proximal sidehole forming a loop within the distal half of the thoracic esophagus. RAD/Abdomen Single View (Portable) IMPRESSION: Malposition of the endogastric tube. Electronically Signed: Ford Alvarez MD at 13:19 EDT ,
[2022-01-16 09:03] LABS: Color, Urine Yellow (Yellow); Glucose, Dipstick Normal (Normal); Ketone-Dipstick Negative (Negative); Leukocyte Esterase-Dipstick 25 /ul (Negative); Nitrite-Dipstick Negative (Negative); Occult Blood-Urine Negative /ul (Negative); Protein-Dipstick 30 mg/dl (Negative); Specific Gravity, Urine 1.015 (1.002-1.030); Urine Clarity Clear (Clear); Urine Urobilinogen Normal (Normal)
[2022-01-16 09:04] LABS: Urine Bilirubin Dipstick 3 mg/dL (Negative)
[2022-01-16] MEDS: Oxymetazoline 0.05% 1 SPRAY SPRAY.BTL 2 SPRAY NASAL (09:14)
[2022-01-16 09:24] LABS: Mucous, Urine 1+ /hpf (<or=2+)
--- NOTE | 2022-01-16 09:27 | PCM.HP.STD ---
HPI - General General Date of Admission: 01/16/22 Date of Service: 01/16/22 Chief Complaint: Lightheadedness, vomiting -2 days HPI Narrative JEAN PAUL GEE, is a 86 M who presents with the above. Patient has past medical history of chronic atrial fibrillation, chronic diastolic CHF, hyperthyroidism/Graves disease who presented with a 2-day history of dizziness, nausea, feeling of going to fall down. Patient has not had a bowel movement in 2 days. He has history of laparotomy for small bowel obstruction. He denies any abdominal pain no hematochezia or melena. He denied any fever or chills or sore throat or cough or dysuria or frequency. He denied any sick contacts. In the emergency room, his blood pressure was 82/54, heart rate was 150, respiratory rate was 23, temperature 96.6 F, SPO2 was 96% on room air. WBC was 19.2, hemoglobin 14.4, platelet count is 240. INR 1.8, Na 137, potassium 3.5, chloride 90, potassium 29, anion gap 18, BUN 74, creatinine 3.04, magnesium 2.2, total bilirubin 1.3, troponin 66. UA unremarkable. Admitting chest x-ray showed bibasilar atelectasis. CT of the abd/pelvis showed high grade SBO related to adhesions within the left-sided abdomen likely, left inguinal hernia containing small bowel. [facility] Medical History BPH (benign prostatic hyperplasia) BPH loc w urin obs/LUTS Chronic diastolic heart failure Dementia Essential (primary) hypertension Graves disease Longstanding persistent atrial fibrillation Nonrheumatic tricuspid (valve) insufficiency Secondary pulmonary arterial hypertension Home Medications acetaminophen 325 mg tablet 650 mg PO Q6H PRN PRN Fever 12/21/16 [Rx Last Taken Unknown] tamsulosin 0.4 mg capsule 0.4 mg PO DAILY #90 caps 12/08/18 [Rx Last Taken Unknown] apixaban 5 mg tablet 5 mg PO BID #180 tabs 01/26/21 [Rx Last Taken Unknown] furosemide 40 mg tablet (Lasix) 40 mg PO DAILY #90 tabs 02/16/21 [Rx Last Taken Unknown] lisinopril 5 mg tablet 5 mg PO DAILY #90 tabs 02/17/21 [Rx Last Taken Unknown] metoprolol tartrate 50 mg tablet 50 mg PO BID #180 tabs 05/18/21 [Rx Last Taken Unknown] methimazole 5 mg tablet 15 mg PO DAILY 01/16/22 [History Last Taken Unknown] Allergy/AdvReac Type Severity Reaction Status Date / Time rivaroxaban [From Xarelto] AdvReac Severe hematuria Verified 01/16/22 07:01 Penicillins [PCN] AdvReac dont Verified 01/16/22 07:01 remember its long time ago Surgical History (Updated 01/16/22 @ 14:[address] Sydney Concepcion MD) History of hernia repair History of laparotomy Social History (Updated 01/16/22 @ 14:[address] Sydney Concepcion MD) household members: spouse Smoking Status: Never smoker alcohol intake: never substance use type: does not use ROS ROS Narrative Constitutional: Reports: Malaise, Weakness, Fatigue. Denies: Anorexia, Chills, Fever, Night Sweats, Weight Change Eyes: Denies: Blurred vision, Cataracts, Conjunctivae Inflammation, Pain, Redness, Vision Change HEENT: Denies: Difficulty Hearing, Difficulty Swallowing, Head Aches, Hearing Changes, Sinus Congestion, Sinus Drainage Cardiovascular: Admits to dizziness denies: Chest Pain, Orthopnea, Palpitations Respiratory: Denies: Cough, Shortness of breath at rest, Sputum production Gastrointestinal: See HPI Genitourinary: Denies: Dysuria Musculoskeletal: Denies: Joint Pain, Joint stiffness, Joint swelling, Joint Tenderness Skin: Denies: Rash, Wounds Neurological: Denies: Numbness, Tingling, Focal weakness Vital Signs Vital Signs Vital Signs: 01/16/22 06:56 01/16/22 07:03 01/16/22 07:04 Temperature 96.6 F L Temperature Source Temporal Pulse Rate 150 H 167 H Respiratory Rate 23 H 19 H Respiratory Effort Normal Respiratory Pattern Normal Blood Pressure 82/54 L Blood Pressure Mean 63 Pulse Ox 96 Oxygen Delivery Method Room Air Room Air 01/16/22 08:03 01/16/22 08:52 Temperature 96.6 F L Temperature Source Temporal Pulse Rate 107 H 132 H Respiratory Rate 24 H 24 H Respiratory Effort Respiratory Pattern Blood Pressure 81/57 L 80/53 L Blood Pressure Mean 65 62 Pulse Ox 97 96 Oxygen Delivery Method Room Air Weight Weight: 87.4 kg Body Mass Index (BMI) 27.6 Physical Exam Narrative Physical exam: General: Alert, Oriented x3, Cooperative, appears unwell HEENT: Atraumatic Oral: Dry mucosa Neck: Supple Lungs: Clear to auscultation Cardiovascular: HS I+II, regular, no murmurs Abdomen: Old midline and epigastric scar, bilateral inguinal scars, slightly distended abdomen, bowel Sounds hypoactive, Soft, Non Tender Extremities: No edema Skin: No rashes, No breakdown Neurological: Grossly intact Psych/Mental Status: Appropriate Results Lab / Micro Data Result Diagrams: 01/16/22 07:07 01/16/22 07:07 Labs: Laboratory Results - last 24 hr 01/16/22 07:07: WBC 19.2 H, RBC 4.74, Hgb 14.4, Hct 41.5, MCV 87.6, MCH 30.4, MCHC 34.7, RDW Std Deviation 40.3, RDW Coeff of Anatoly 12.6, Plt Count 240, MPV 10.7, Immature Gran % (Auto) 0.600, Neut % (Auto) 83.4 H, Lymph % (Auto) 6.2 L, [place] % (Auto) 9.7, Eos % (Auto) 0.0, Baso % (Auto) 0.1, Absolute Neuts (auto) 16.0 H, Absolute Lymphs (auto) 1.19, Nucleated RBC % 0, Differential Comment SCANNED, Diff Path Review September01/16/22 07:07: PT 20.9 H, INR 1.8, APTT 30.3 01/16/22 07:07: Sodium 137, Potassium 3.5, Chloride 90 L, Carbon Dioxide 29.0, Anion Gap 18 H, BUN 74 H, Creatinine 3.04 H, Estim Creat Clear Calc 18.01, Est GFR (MDRD) Af Amer 25 L, Est GFR (MDRD) Non-Af 21 L, BUN/Creatinine Ratio 24.3 H, Glucose 195 H, Calcium 9.6, Magnesium 2.3, Total Bilirubin 1.30 H, AST 9 L, ALT 13 L, Alkaline Phosphatase 62, Troponin I High Sens 66, Total Protein 8.2, Albumin 3.7, Globulin 4.5 H, Albumin/Globulin Ratio 0.8 L 01/16/22 07:07: POC Glucose 190 H 01/16/22 07:23: Lactic Acid 9.7 H* 01/16/22 08:48: Urine Color Yellow, Urine Clarity Clear, Urine pH 5.0, Ur Specific [place] 1.015, Urine Protein 30 H, Urine Glucose (UA) Normal, Urine Ketones Negative, Urine Occult Blood Negative, Urine Nitrite Negative, Urine Bilirubin 3 H, Urine Urobilinogen Normal, Ur Leukocyte Esterase 25 H, Urine RBC 0 SEEN, Urine WBC 0 SEEN, Ur Squamous Epith Cells 0 SEEN, Urine Bacteria 0 SEEN, Urine Mucus 1+ Radiology Impression Chest X-Ray 01/16/22 07:12 IMPRESSION: Bibasilar atelectasis. As above. Electronically Signed: Ford Alvarez MD at 7:56 EDT , Abdomen/Pelvis CT 01/16/22 07:51 IMPRESSION: 1. High-grade small bowel obstruction related to adhesions within the left-side of the mid abdomen likely. 2. Left inguinal hernia containing small bowel. 3. Stable hepatic hemangiomata. Electronically Signed: Ford Alvarez MD at 8:56 EDT , ADDENDUM: 01/16/22 0903 IMPRESSION: 1. High-grade small bowel obstruction related to adhesions within the left-side of the mid abdomen likely. 2. Left inguinal hernia containing small bowel. 3. Stable hepatic hemangiomata. N.B. : The above Results were Read Back by Ford Alvarez MD to Luis Gannon DO, and understanding confirmed on 01/16/2022 08:56:59 (ET). Electronically Signed: Ford Alvarez MD at 8:56 EDT , Assessment & Plan Assessment/Plan (1) SBO (small bowel obstruction): (2) Acute renal failure: (3) Acute hypotension: (4) Atrial fibrillation with RVR: (5) Essential (primary) hypertension: PLAN: Plan 1. Shock, likely septic, unclear etiology, Likely from translocation of bacteria from small bowel obstruction Patient initially presented to the ED hypotensive, fluid responsive Started on IV Flagyl and Cipro as patient has allergy to penicillin with hives Continue IV fluids, IV antibiotics as above Monitor in ICU, field operations technician consult 2. A fib with RVR, patient with underlying history of A. fib/Graves disease Patient last took Eliquis and methimazole yesterday Hold home metoprolol as patient is hypotensive and also Eliquis for now Will start on amiodarone IV bolus and drip 3. ARIN, likely pre-renal from #1, vomiting and poor po intake in the setting of continued Lasix and lisinopril intake Previous creatinine was 0.54, admitted creatinine of 3.04 Lasix and lisinopril held Continue IV fluids, trend labs 4. Acute small bowel obstruction likely secondary to adhesion Seen on CT of the abdomen and pelvis General surgery consulted from the ED Status post multiple NG tube placement attempts Follow-up on general surgery recommendations Continue IV Cipro and Flagyl 5. Lactic acidosis likely secondary to #1 and #4 Admitting lactic acid level is 9.7 Continue IV fluids, trend lactic acid per protocol 6. Graves disease/hyperthyroidism, will check FT4/FT3 7. DVT PPx- On Eliquis/SCDs I discussed and explained in details the various types of CODE STATUS-full code, DNR CCA, DNR CC. Patient chose to be full code stating that his would want him alive. He would like aggressive resuscitation and then to rely on his for further discussions if he is in a persistent vegetative state. Time spent discussing CODE STATUS 18 minutes Charges/Coding Visit Charges Inpatient E&M: 74999 Init Hosp L3 Procedures Hospitalists Procedures: 33520 Advncd Care Plan 30 Min
[2022-01-16] MEDS: Ciprofloxacin 400 MG/200 ML BAG 200 MG IV (09:36)
--- NOTE | 2022-01-16 09:36 | EX.PCM.CON.S ---
Assessment & Plan Assessment/Plan (1) SBO (small bowel obstruction): PLAN: Patient had a episode of a small bowel obstruction when he presented in 2017 with abdominal pain. Subsequently underwent a laparotomy for small bowel obstruction by Dr. Thao and Dr. Simmons. This resolved from that surgery. At this time the patient is not complaining of any abdominal pain but in his CAT scan he has significant fluid in his stomach and placement of the NG raises the question if it could be some bleeding going on it looks rather dark. At this point I think NG tube decompression with hydration and hopefully improvement in his cardiac status as well as his acute renal failure is needed. I do not think he needs an urgent surgery since he has no abdominal pain at this time. HPI Consult Data Date of Consult: 01/16/22 HPI Narrative HPI Narrative: JEAN PAUL GEE, is a 86-year-old male with a history of CHF persistent atrial fibrillation and pulmonary hypertension presenting to the emergency room with near syncope and weakness.? Patient was noted this morning to have almost fallen at home.? He felt very lightheaded/dizzy.? He is on apixaban for persistent atrial fibrillation.? He has not required any medication changes recently. His notes that he really has not ate much for 3 days. He denies any pain or fever.? He denies shortness of breath or leg swelling. CT scan was read as:Prominent distention of the esophagus, stomach, duodenum and multiple small bowel loops.? Transition to nondistended small bowel noted within the left side of the mid abdomen with air is also small bowel feces.? Pattern is consistent with high-grade small bowel obstruction likely related to adhesions from prior surgery.? More distal small bowel and large bowel are relatively decompressed.? Left inguinal hernia containing loop of small bowel without evidence of the point of obstruction at the hernia. At the present time the patient is not complaining of any abdominal pain. [facility] [place] Medical History BPH (benign prostatic hyperplasia) BPH loc w urin obs/LUTS Chronic diastolic heart failure Essential (primary) hypertension Graves disease Longstanding persistent atrial fibrillation Nonrheumatic tricuspid (valve) insufficiency Secondary pulmonary arterial hypertension Home Medications acetaminophen 325 mg tablet 650 mg PO Q6H PRN PRN Fever 12/21/16 [Rx Last Taken Unknown] mirtazapine 15 mg tablet 15 mg PO 2100 #30 tabs 12/21/16 [Rx Last Taken Unknown] tamsulosin 0.4 mg capsule 0.4 mg PO DAILY #90 caps 12/08/18 [Rx Last Taken Unknown] apixaban 5 mg tablet 5 mg PO BID #180 tabs 01/26/21 [Rx Last Taken Unknown] furosemide 40 mg tablet (Lasix) 40 mg PO DAILY #90 tabs 02/16/21 [Rx Last Taken Unknown] lisinopril 5 mg tablet 5 mg PO DAILY #90 tabs 02/17/21 [Rx Last Taken Unknown] metoprolol tartrate 50 mg tablet 50 mg PO BID #180 tabs 05/18/21 [Rx Last Taken Unknown] methimazole 5 mg tablet 15 mg PO DAILY 01/16/22 [History Last Taken Unknown] Allergy/AdvReac Type Severity Reaction Status Date / Time rivaroxaban [From Xarelto] AdvReac Severe hematuria Verified 01/16/22 07:01 Penicillins [PCN] AdvReac dont Verified 01/16/22 07:01 remember its long time ago Surgical History History of hernia repair Social History Smoking Status: Never smoker alcohol intake: never substance use type: does not use ROS Constitutional Constitutional: Denies chills or fever(s) Cardiovascular Cardiovascular: Denies chest pain or palpitations Respiratory/Chest Respiratory/Chest: Denies cough or dyspnea Gastrointestinal Gastrointestinal: Denies abdominal pain, hematemesis or nausea Genitourinary Genitourinary: Denies dysuria or flank pain Physical Exam Const alert and no apparent distress HEENT normocephalic and head/scalp atraumatic Eyes PERRL and EOMs intact bilaterally Resp clear to auscultation bilaterally Cardio Rate: tachycardic Heart Sounds: Negative for murmur GI soft to palpation, non-tender and non-distended Extremity normal to inspection and no calf tenderness Lab / Micro Data Result Diagrams: 01/16/22 07:07 01/16/22 07:07 Labs: Laboratory Results - last 24 hr 01/16/22 07:07: WBC 19.2 H, RBC 4.74, Hgb 14.4, Hct 41.5, MCV 87.6, MCH 30.4, MCHC 34.7, RDW Std Deviation 40.3, RDW Coeff of Anatoly 12.6, Plt Count 240, MPV 10.7, Immature Gran % (Auto) 0.600, Neut % (Auto) 83.4 H, Lymph % (Auto) 6.2 L, [place] % (Auto) 9.7, Eos % (Auto) 0.0, Baso % (Auto) 0.1, Absolute Neuts (auto) 16.0 H, Absolute Lymphs (auto) 1.19, Nucleated RBC % 0, Differential Comment SCANNED, Diff Path Review September01/16/22 07:07: PT 20.9 H, INR 1.8, APTT 30.3 01/16/22 07:07: Sodium 137, Potassium 3.5, Chloride 90 L, Carbon Dioxide 29.0, Anion Gap 18 H, BUN 74 H, Creatinine 3.04 H, Estim Creat Clear Calc 18.01, Est GFR (MDRD) Af Amer 25 L, Est GFR (MDRD) Non-Af 21 L, BUN/Creatinine Ratio 24.3 H, Glucose 195 H, Calcium 9.6, Magnesium 2.3, Total Bilirubin 1.30 H, AST 9 L, ALT 13 L, Alkaline Phosphatase 62, Troponin I High Sens 66, Total Protein 8.2, Albumin 3.7, Globulin 4.5 H, Albumin/Globulin Ratio 0.8 L 01/16/22 07:07: POC Glucose 190 H 01/16/22 07:23: Lactic Acid 9.7 H* 01/16/22 08:48: Urine Color Yellow, Urine Clarity Clear, Urine pH 5.0, Ur Specific [place] 1.015, Urine Protein 30 H, Urine Glucose (UA) Normal, Urine Ketones Negative, Urine Occult Blood Negative, Urine Nitrite Negative, Urine Bilirubin 3 H, Urine Urobilinogen Normal, Ur Leukocyte Esterase 25 H, Urine RBC 0 SEEN, Urine WBC 0 SEEN, Ur Squamous Epith Cells 0 SEEN, Urine Bacteria 0 SEEN, Urine Mucus 1+ Radiology Impression Chest X-Ray 01/16/22 07:12 IMPRESSION: Bibasilar atelectasis. As above. Electronically Signed: Ford Alvarez MD at 7:56 EDT , Abdomen/Pelvis CT 01/16/22 07:51 IMPRESSION: 1. High-grade small bowel obstruction related to adhesions within the left-side of the mid abdomen likely. 2. Left inguinal hernia containing small bowel. 3. Stable hepatic hemangiomata. Electronically Signed: Ford Alvarez MD at 8:56 EDT , ADDENDUM: 01/16/22 0903 IMPRESSION: 1. High-grade small bowel obstruction related to adhesions within the left-side of the mid abdomen likely. 2. Left inguinal hernia containing small bowel. 3. Stable hepatic hemangiomata. N.B. : The above Results were Read Back by Ford Alvarez MD to Luis Gannon DO, and understanding confirmed on 01/16/2022 08:56:59 (ET). Electronically Signed: Ford Alvarez MD at 8:56 EDT ,
[2022-01-16] MEDS: metroNIDAZOLE 500 MG/100 ML BAG 100 MG IV ×3 (10:40→20:59)
[2022-01-16 11:44] LABS: Reflex Lactate? Y
--- NOTE | 2022-01-16 11:52 | NURSING ---
pt sitting at side of cart for 3min. suddenly stopped speaking and lost consciousness. recovered immediately on laying down.
[2022-01-16] MEDS: 0.9% Normal Saline 1,000 ML 200 ML IV ×3 (12:17→23:49)
[2022-01-16] MEDS: Lidocaine Jelly 2% 20 ML Syringe (URO-JET) 1 APPLIC TOPICAL ×2 (13:03→15:07)
[2022-01-16 14:39] LABS: Lactic Acid 5.8 mmol/L (0.4-1.9)
[2022-01-16] MEDS: Amiodarone 360 MG in Dextrose 5% Viaflo Bag 192.8 ML 33.3 MG CONT INF (14:39)
[2022-01-16 15:12] LABS: Hematocrit 34.3 % (40-54)
[2022-01-16 15:16] LABS: Free T3 1.8 pg/mL (2.18-3.98); Thyroid Stim Hormone (TSH) 7.08 uIU/mL (0.358-3.74)
[2022-01-16] MEDS: Hydrocortisone Sod Succinate 100 MG/2 ML Vial IV (15:23)
--- NOTE | 2022-01-16 15:39 | RAD_ITS ---
EXAM: XR ABDOMEN, 1 VIEW CLINICAL INDICATION: NG placement TECHNIQUE: Frontal supine view of the abdomen/pelvis. This report was created using [employer] report generation technology. COMPARISON: None. FINDINGS: LOWER THORAX: Mild atelectatic changes left lung base. GASTROINTESTINAL TRACT: No evidence of bowel obstruction. ORGANS: No organomegaly. BONES/JOINTS: No acute abnormality. SOFT TISSUES: No pathological calcification. TUBES, LINES AND DEVICES: Satisfactory endogastric tube placement. Enteric tube tip in the stomach. RAD/Abdomen Single View (Portable) IMPRESSION: No acute findings. Electronically Signed: Ford Alvarez MD at 16:47 EDT ,
--- NOTE | 2022-01-16 15:44 | PCM.PN.BLA ---
Progress Note Follow-up on hypotension, probable septic shock/Afib with RVR/bowel obstruction/lactic acidosis: Patient was seen and examined in the ICU. Since being admitted, patient had elevation in his heart rate to 170s to 190s. Amiodarone bolus and drip were started Blood pressures remained relatively low but MAP was more than 65. He had obtained more than 4 L of fluid (more than 30mls/kg). No fevers seen. Still unclear reason for shock - probably multifactorial NG tube was placed and patient had more than 4L of dark gastric content, coffee ground aspirated. Gastric occult blood sent; positive Dumont catheter inserted, urine output is >250mls so far in less than 2 hours Patient denied any new complains. Vitals appear improved with improved HR and BP. Physical Exam Narrative Physical exam: General: Alert, Oriented x3, Cooperative, appears unwell, NG tube in situ HEENT: Atraumatic Oral: Dry mucosa Neck: Supple Lungs: Diminished to auscultation Cardiovascular: HS I+II, regular, no murmurs Abdomen: Old midline and epigastric scar, bilateral inguinal scars, slightly distended abdomen, bowel sounds hypoactive, soft, non-tender Extremities: No edema Skin: No rashes, No breakdown Neurological: Grossly intact Psych/Mental Status: Appropriate Assessment & Plan Assessment/Plan (1) Acute hypotension: (2) Acute renal failure: PLAN: Plan Continue aggressive fluid resuscitation in the light of now massive GI output Continue NG tube IV PPI BID Continue IV antibiotics PICC line Continue to monitor vitals
--- NOTE | 2022-01-16 19:58 | RAD_ITS ---
STUDY: X-RAY - ABDOMEN/PELVIS REASON FOR EXAM: Male, 86 years old. NG PLACEMENT TECHNIQUE: AP supine and decubitus views of the abdomen and pelvis. COMPARISON: 01/16/2022 at 1537 FINDINGS: Nasogastric tube coiled in left upper quadrant likely in the body the stomach. There is an unremarkable bowel gas pattern. The visualized liver, spleen and kidneys are grossly normal in size and morphology. Normal soft tissue structures. Normal visualized osseous structures. RAD/Abdomen Single View (Portable) IMPRESSION: Nasogastric tube in the left upper quadrant likely in the body the stomach. Electronically Signed: Emerson Luong MD at 20:43 EDT ,
--- NOTE | 2022-01-16 19:58 | RAD_ITS ---
STUDY: X-RAY CHEST REASON FOR EXAM: Male, 86 years old. picc line placement TECHNIQUE: Single AP portable view of the chest. COMPARISON: 01/16/2022 at 07 41 FINDINGS: Interval placement of nasogastric tube with the tip below the diaphragm. Interval placement of left upper extremity PICC coiled over on itself just superior to the aortic knob likely in the left brachiocephalic vein. Poor inspiration with some bibasilar atelectasis. There is no demonstrated pleural abnormality. Normal size heart. Normal mediastinum and carin. Normal visualized pulmonary arteries. Normal visualized aortic arch and descending thoracic aorta. Normal visualized thoracic spine. Normal visualized ribs, clavicles, and shoulders. There is no demonstrated abnormality of the visualized soft tissue structures of the upper abdomen. RAD/CXR for Line Placement IMPRESSION: 1. Interval placement of nasogastric tube with the tip below the diaphragm. 2. Interval placement of left upper extremity PICC which is coiled over on itself just superior to the aortic knob likely in the left brachiocephalic vein. 3. Poor inspiration with some bibasilar atelectasis. Electronically Signed: Emerson Luong MD at 20:41 EDT ,
[2022-01-16] MEDS: Amiodarone 360 MG in Dextrose 5% Viaflo Bag 192.8 ML 16.7 MG CONT INF (20:58)
[2022-01-17] VITALS (25 sets, daily range): BP systolic 95–151; BP diastolic 55–95; PULSE 90–136; RESP 13–26; TEMP 36.7–37.4; O2SAT 97–100
[2022-01-17] MEDS: Hydrocortisone Sod Succinate 100 MG/2 ML Vial IV ×2 (01:49→05:38)
[2022-01-17] MEDS: 0.9% Saline Lock 10 ML Syringe IV (01:52)
[2022-01-17] MEDS: 0.9% Normal Saline 1,000 ML 200 ML IV (03:56)
[2022-01-17] MEDS: metroNIDAZOLE 500 MG/100 ML BAG 100 MG IV ×3 (05:38→21:46)
[2022-01-17 05:47] LABS: Absolute Lymphocyte Count 0.59 X10^3/uL (0.83-4.51); Absolute Neutrophil Count 8.7 X10^3/uL (2.0-7.7); Basophil# 0.01 X10^3/uL; Basophil% 0.1 % (0-1); Hematocrit 29.3 % (40-54); Hemoglobin 10.2 g/dL (13.0-16.5); Lymphocyte # 0.59 X10^3/ul (0.83-4.51); Lymphocyte % 5.6 % (19-41); Mean Corp Hgb Conc 34.8 g/dL (32-36); Mean Corpuscular Hgb 30.9 pg (27.0-32.0); Mean Corpuscular Volume 88.8 fL (80-94); Mean Platelet Vol. 10.2 fl (6.2-12.0); Monocyte# 1.26 X10^3/uL; NRBC Flagged by Analyzer 0 % (0-5); Neutrophil # 8.65 X10^3/uL (2.7-7.7); Neutrophil % 82.1 % (47-70); POSITIVE DIFFERENTIAL YES; Platelet Count 149 K/mm3 (150-450); RBC Distribution Width SD 42.2 fl (35.1-43.9); White Blood Count 10.5 K/mm3 (4.4-11.0)
[2022-01-17 05:50] LABS: Differential Indicated SCAN CRITERIA MET
[2022-01-17 06:11] LABS: ALB/GLOB Ratio 0.8 RATIO (0.9-2.4); AST(SGOT) 29 U/L (15-37); Alanine Aminotransfer ALT/SGPT 13 U/L (16-61); Albumin, Serum 2.6 g/dL (3.2-5.0); Alkaline Phosphatase 41 U/L (45-117); Anion Gap 6 (5-15); BUN 63 mg/dL (7-18); BUN/Creat Ratio 32.5 RATIO (10-20); Calcium,Total 7.9 mg/dL (8.5-10.1); Chloride 108 mmol/L (98-107); Creatinine, Serum 1.94 mg/dL (0.70-1.30); EST Glomerular Filtration Rate 35 mL/min (>60); Est Glom Filt Rate - Afr Amer 42 mL/min (>60); Estimated Creatinine Clearance 28.22 ml/min; Globulin 3.4 g/dL (2.2-4.2); Glucose 139 mg/dL (74-106); Potassium 3.2 mmol/L (3.5-5.1); Sodium Level 147 mmol/L (136-145)
[2022-01-17 06:16] LABS: Differential Comment SCANNED
[2022-01-17] MEDS: Lactated Ringers 1,000 ML 100 ML IV ×2 (06:59→18:06)
--- NOTE | 2022-01-17 07:18 | PCM.PN.SRG ---
Subjective Subjective Patient has not passed any flatus as of yet. He is complaining of no abdominal pain. He has had a significant amount coming out of his NG tube at the present time. Objective Data Objective Data Abdomen is soft nontender nondistended no rebound guarding or peritoneal signs are identified Vital Signs: Vital Signs Temp Pulse Resp BP Pulse Ox O2 Del Method 98.8 F 102 H 16 104/79 99 Room Air 01/17/22 07:00 01/17/22 07:00 01/17/22 07:00 01/17/22 07:00 01/17/22 07:00 01/17/22 07:00 Oxygen Delivery Method Room Air Weight: 185 lb 13.595 oz Body Mass Index (BMI) 26.3 Intake & Output: Intake and Output for Last 24 Hours 01/15/22 01/16/22 01/17/22 23:59 23:59 23:59 Intake Total 6913 / 6928 938.33 / 938.33 Output Total 5905 / 7630 2450 / 2450 Balance 1008 / -702 -1511.67 / -1511.67 Lab / Micro Data Result Diagrams: 01/17/22 05:30 01/17/22 05:30 Labs: Laboratory Results - last 24 hr 01/16/22 07:07: WBC 19.2 H, RBC 4.74, Hgb 14.4, Hct 41.5, MCV 87.6, MCH 30.4, MCHC 34.7, RDW Std Deviation 40.3, RDW Coeff of Anatoly 12.6, Plt Count 240, MPV 10.7, Immature Gran % (Auto) 0.600, Neut % (Auto) 83.4 H, Lymph % (Auto) 6.2 L, [place] % (Auto) 9.7, Eos % (Auto) 0.0, Baso % (Auto) 0.1, Absolute Neuts (auto) 16.0 H, Absolute Lymphs (auto) 1.19, Nucleated RBC % 0, Differential Comment SCANNED, Diff Path Review September01/16/22 07:07: PT 20.9 H, INR 1.8, APTT 30.3 01/16/22 07:07: Sodium 137, Potassium 3.5, Chloride 90 L, Carbon Dioxide 29.0, Anion Gap 18 H, BUN 74 H, Creatinine 3.04 H, Estim Creat Clear Calc 18.01, Est GFR (MDRD) Af Amer 25 L, Est GFR (MDRD) Non-Af 21 L, BUN/Creatinine Ratio 24.3 H, Glucose 195 H, Calcium 9.6, Magnesium 2.3, Total Bilirubin 1.30 H, AST 9 L, ALT 13 L, Alkaline Phosphatase 62, Troponin I High Sens 66, Total Protein 8.2, Albumin 3.7, Globulin 4.5 H, Albumin/Globulin Ratio 0.8 L 01/16/22 07:07: POC Glucose 190 H 01/16/22 07:07: Free T4 0.80 01/16/22 07:07: TSH 7.08 H, Free T3 pg/dL 1.8 L 01/16/22 07:23: Lactic Acid 9.7 H* 01/16/22 08:48: Urine Color Yellow, Urine Clarity Clear, Urine pH 5.0, Ur Specific [place] 1.015, Urine Protein 30 H, Urine Glucose (UA) Normal, Urine Ketones Negative, Urine Occult Blood Negative, Urine Nitrite Negative, Urine Bilirubin 3 H, Urine Urobilinogen Normal, Ur Leukocyte Esterase 25 H, Urine RBC 0 SEEN, Urine WBC 0 SEEN, Ur Squamous Epith Cells 0 SEEN, Urine Bacteria 0 SEEN, Urine Mucus 1+ 01/16/22 14:00: Lactic Acid 5.8 H* 01/16/22 15:00: Hgb 12.0 L, Hct 34.3 L 01/17/22 05:30: WBC 10.5, RBC 3.30 L, Hgb 10.2 L, Hct 29.3 L, MCV 88.8, MCH 30.9, MCHC 34.8, RDW Std Deviation 42.2, RDW Coeff of Anatoly 13.0, Plt Count 149 L, MPV 10.2, Immature Gran % (Auto) 0.200, Neut % (Auto) 82.1 H, Lymph % (Auto) 5.6 L, [place] % (Auto) 12.0 H, Eos % (Auto) 0.0, Baso % (Auto) 0.1, Absolute Neuts (auto) 8.7 H, Absolute Lymphs (auto) 0.59 L, Nucleated RBC % 0, Differential Comment SCANNED 01/17/22 05:30: Sodium 147 H, Potassium 3.2 L, Chloride 108 H, Carbon Dioxide 33.0 H, Anion Gap 6, BUN 63 H, Creatinine 1.94 H, Estim Creat Clear Calc 28.22, Est GFR (MDRD) Af Amer 42 L, Est GFR (MDRD) Non-Af 35 L, BUN/Creatinine Ratio 32.5 H, Glucose 139 H, Calcium 7.9 L, Total Bilirubin 1.10 H, AST 29, ALT 13 L, Alkaline Phosphatase 41 L, Total Protein 6.0 L, Albumin 2.6 L, Globulin 3.4, Albumin/Globulin Ratio 0.8 L Micro: Microbiology 01/16/22 15:00 Gastric Fluid/Contents Gastric Occult Blood - Final Occult Blood Positive Radiography Diagnostic Testing: Radiology Impression Chest X-Ray 01/16/22 07:12 IMPRESSION: Bibasilar atelectasis. As above. Electronically Signed: Ford Alvarez MD at 7:56 EDT , Abdomen/Pelvis CT 01/16/22 07:51 IMPRESSION: 1. High-grade small bowel obstruction related to adhesions within the left-side of the mid abdomen likely. 2. Left inguinal hernia containing small bowel. 3. Stable hepatic hemangiomata. Electronically Signed: Ford Alvarez MD at 8:56 EDT , ADDENDUM: 01/16/22 0903 IMPRESSION: 1. High-grade small bowel obstruction related to adhesions within the left-side of the mid abdomen likely. 2. Left inguinal hernia containing small bowel. 3. Stable hepatic hemangiomata. N.B. : The above Results were Read Back by Ford Alvarez MD to Luis Gannon DO, and understanding confirmed on 01/16/2022 08:56:59 (ET). Electronically Signed: Ford Alvarez MD at 8:56 EDT , KUB X-Ray 01/16/22 08:56 IMPRESSION: As above. Electronically Signed: Ford Alvarez MD at 13:24 EDT , KUB X-Ray 01/16/22 08:56 IMPRESSION: Malposition of the endogastric tube. Electronically Signed: Ford Alvarez MD at 13:19 EDT , KUB X-Ray 01/16/22 08:56 IMPRESSION: Nasogastric tube coiled likely in the proximal esophagus. Electronically Signed: Emerson Luong MD at 13:40 EDT , KUB X-Ray 01/16/22 15:39 IMPRESSION: No acute findings. Electronically Signed: Ford Alvarez MD at 16:47 EDT , Chest X-Ray 01/16/22 19:58 IMPRESSION: 1. Interval placement of nasogastric tube with the tip below the diaphragm. 2. Interval placement of left upper extremity PICC which is coiled over on itself just superior to the aortic knob likely in the left brachiocephalic vein. 3. Poor inspiration with some bibasilar atelectasis. Electronically Signed: Emerson Luong MD at 20:41 EDT , KUB X-Ray 01/16/22 19:58 IMPRESSION: Nasogastric tube in the left upper quadrant likely in the body the stomach. Electronically Signed: Emerson Luong MD at 20:43 EDT , Assessment & Plan Assessment/Plan (1) SBO (small bowel obstruction): PLAN: Patient is making slow recovery from his acute renal failure. Still remains orthostatic. Would encourage chewing on ice chips hard candy and gum and hopefully this will show some improvement in his GI function. No surgeries planned at this moment.
--- NOTE | 2022-01-17 07:20 | CON.PCM.CC_ITS ---
Assessment & Plan Assessment/Plan (1) Acute hypotension: (2) Atrial fibrillation with RVR: (3) SBO (small bowel obstruction): (4) Acute renal failure: (5) Secondary pulmonary arterial hypertension: PLAN: Plan RECOMMENDATIONS: 1. Change IV fluids to LR to 100 mL per hour 2. Potassium repletion 3. Continue conservative measures for small bowel obstruction. 4. Okay to continue current antibiotics pending cultures 5. Discontinue stress dose steroids 6. Likely okay to be transferred to the PCU IMPRESSIONS: 1. Hypovolemic shock Unclear etiology. Patient may have had a translocation of bacteria secondary to a small bowel obstruction. Patient has responded well to fluid resuscitation. Blood pressures have remained stable with no need for pressors. Patient does have a central line in place. No fever has been noted. Patient has had a drop in white blood cell and hemoglobin, likely secondary to hemodilu tion. Reasonable to continue antibiotics until cultures are finalized. Likely not necessary to continue to trend lactic acids unless patient develops significant abdominal pain indicating bowel ischemia. 2. Acute kidney injury secondary to prerenal and ATN Baseline creatinine appears to be around 0.5. Patient admitted with a creatinine of 3. Patient is on diuretics and NIURKA inhibitor at baseline and also likely had some element of volume loss secondary to emesis. Patient has responded well to fluid resuscitation. There is no indication for renal replacement therapy at this time. Patient does have a Dumont in place to monitor urine output closely. 3. A. fib with RVR Patient's heart rate is much improved following volume resuscitation. Patient does remain on amiodarone. Likelihood is patient will remain in A. fib given protracted course. Likely okay to reinitiate beta-reva at lower doses and increase in a stepwise fashion. Okay to continue with apixaban from a medical standpoint, but surgery may want this discontinued for concerns of possible intervention. Clinical suspicion for decrease in hemoglobin secondary to hemodilution, not bleeding. Nonsustained V. tach likely secondary to electrolyte abnormalities. Repletion has been ordered. Could consider cardiology consult if amiodarone is to be continued 4. Acute small bowel obstruction History of previous intervention secondary to adhesions. Patient appears to be responding to conservative measures with NG suctioning. Surgery is following. Cannot exclude translocation of bowel bacteria, so patient is on Cipro and Flagyl. Lactic acid was improving significantly. Patient is not having any bloody bowel movements to suggest bowel ischemia. 5. Advanced age/Graves' disease/hypothyroidism/secondary pulmonary artery hypertension/inguinal hernia Complicates care, management, recovery and prognosis. Thyroid testing has been ordered by the hospitalist. Clinical suspicion for A. fib RVR secondary to problems 1 and 2. Patient did confirm that he is a full code. Patient's is at the bedside and agrees with patient's decision. HPI Consult Data Date of Consult: 01/17/22 HPI Narrative Reason for Consultation: Hypotension HPI Narrative: JEAN PAUL GEE is a 86 M, with past medical history listed below, who presents to [facility] on 01/16/2022 secondary to near syncope and weakness. Patient reportedly had fallen at home earlier in the day secondary to feeling lightheaded and dizzy. Patient does have a history of A. fib for which she takes apixaban. Patient had not recently had any other changes in his medications. Patient's had reported that he had not eaten much for the last 3 days, but otherwise really had no complaints such as pain, fever, chills, shortness of breath or leg swelling. Patient reportedly did have some emesis on the day of presentation. No coffee-ground's were noted. In the ER, patient was afebrile, but tachycardic as high as 167 bpm. Patient was noted to be in atrial fibrillation. Patient was also noted to have a blood pressure of 82/54, but saturating well on room air. Laboratory work-up showed a white blood cell count of 19.2, hemoglobin of 14.4 and platelets of 240. INR was elevated at 1.8 and creatinine was significantly elevated from a baseline of 0.5-3. Patient does have an elevated bicarbonate of 29 and a glucose of 195. Total bilirubin was elevated at 1.3, but other liver enzymes were unremarkable. Patient's lactate was elevated at 9.7 and urinalysis was relatively unremarkable. Chest x-ray showed only bilateral atelectasis and a CT of the abdomen and pelvis showed a high-grade small bowel obstruction with adhesions and a left inguinal hernia containing small bowel. Patient received significant amount of fluid resuscitation and was admitted to the intensive care unit. Patient did have a PICC line placed, along with an NG. Since being in the intensive care unit, patient reports significant improvement in his overall condition. Nursing has reported significant NG output that was [id number]. Patient denies any abdominal pain. Patient does report that his nausea has subsided. Patient does have a Dumont in place, but denied any dysuria recently. Patient does not have any history of lung disease that he is aware of. Patient states he has been compliant with his baseline medications for A. fib. Patient does not recall a history of renal dysfunction previously. Patient's was at the bedside and able to provide some additional information. Patient reportedly had seen a surgeon [facility] approximately 5 years ago. Patient reportedly took prep for what appears to be a colonoscopy, but the patient has no recollection. Patient reportedly has had issues with small bowel obstruction in the past that resolved with conservative therapy. Review of systems otherwise negative from a constitutional, HEENT, respiratory, cardiovascular, GI, genitourinary, musculoskeletal, skin, neurologic, psychiatric and hematologic system unless stated above. [facility] Medical History BPH (benign prostatic hyperplasia) BPH loc w urin obs/LUTS Chronic diastolic heart failure Dementia Essential (primary) hypertension Graves disease Longstanding persistent atrial fibrillation Nonrheumatic tricuspid (valve) insufficiency Secondary pulmonary arterial hypertension Home Medications acetaminophen 325 mg tablet 650 mg PO Q6H PRN PRN Fever 12/21/16 [Rx Last Taken Unknown] apixaban 5 mg tablet 5 mg PO BID #180 tabs 01/26/21 [Rx Last Taken Unknown] furosemide 40 mg tablet (Lasix) 40 mg PO DAILY #90 tabs 02/16/21 [Rx Last Taken Unknown] lisinopril 5 mg tablet 5 mg PO DAILY #90 tabs 02/17/21 [Rx Last Taken Unknown] metoprolol tartrate 50 mg tablet 50 mg PO BID #180 tabs 05/18/21 [Rx Last Taken Unknown] methimazole 5 mg tablet 15 mg PO DAILY 01/16/22 [History Last Taken Unknown] Allergy/AdvReac Type Severity Reaction Status Date / Time rivaroxaban [From Xarelto] AdvReac Severe hematuria Verified 01/16/22 07:01 Penicillins [PCN] AdvReac dont Verified 01/16/22 07:01 remember its long time ago Surgical History History of hernia repair History of laparotomy Social History household members: spouse Smoking Status: Never smoker alcohol intake: never substance use type: does not use ROS ROS Narrative See HPI Physical Exam Const alert, oriented x3 and no apparent distress Constitutional Narrative: Appears younger than stated age General Appearance: cooperative HEENT normocephalic and head/scalp atraumatic HEENT Narrative: NG in place Eyes PERRL, EOMs intact bilaterally, conjunctivae normal and no scleral icterus Neck full ROM and no lymphadenopathy Resp clear to auscultation bilaterally Auscultation: Negative for rales, rhonchi or wheezes Percussion: Negative for dullness Cardio S1 normal heart sound, S2 normal heart sound, no murmurs, no rub and no gallops Cardio Narrative: Some episodes of nonsustained V. tach overnight, 5-6 beats Rate: tachycardic Rhythm: abnormal rhythm irregularly irregular GI soft to palpation, non-tender and non-distended Inspection: GI tube present Extremity normal to inspection, no clubbing, cyanosis or edema and no calf tenderness Skin no rashes or lesions noted Neuro CN's II-XII intact bilaterally, moves all extremities and no focal motor deficits Psych cooperative and affect normal Medical Records Data Attestation: I reviewed the patient's medical records Medical records narrative: Patient reportedly had presented in 2017 with a small bowel obstruction requiring exploratory laparotomy and delayed wound healing by Dr. Thao. Lab / Micro Data Attestation: I reviewed the patient's lab results. Result Diagrams: 01/17/22 05:30 01/17/22 05:30 Labs: Laboratory Results - last 24 hr 01/16/22 07:07: WBC 19.2 H, RBC 4.74, Hgb 14.4, Hct 41.5, MCV 87.6, MCH 30.4, MCHC 34.7, RDW Std Deviation 40.3, RDW Coeff of Anatoly 12.6, Plt Count 240, MPV 10.7, Immature Gran % (Auto) 0.600, Neut % (Auto) 83.4 H, Lymph % (Auto) 6.2 L, [place] % (Auto) 9.7, Eos % (Auto) 0.0, Baso % (Auto) 0.1, Absolute Neuts (auto) 16.0 H, Absolute Lymphs (auto) 1.19, Nucleated RBC % 0, Differential Comment SCANNED, Diff Path Review September foll 01/16/22 07:07: PT 20.9 H, INR 1.8, APTT 30.3 01/16/22 07:07: Sodium 137, Potassium 3.5, Chloride 90 L, Carbon Dioxide 29.0, Anion Gap 18 H, BUN 74 H, Creatinine 3.04 H, Estim Creat Clear Calc 18.01, Est GFR (MDRD) Af Amer 25 L, Est GFR (MDRD) Non-Af 21 L, BUN/Creatinine Ratio 24.3 H , Glucose 195 H, Calcium 9.6, Magnesium 2.3, Total Bilirubin 1.30 H, AST 9 L, ALT 13 L, Alkaline Phosphatase 62, Troponin I High Sens 66, Total Protein 8.2, Albumin 3.7, Globulin 4.5 H, Albumin/Globulin Ratio 0.8 L 01/16/22 07:07: POC Glucose 190 H 01/16/22 07:07: Free T4 0.80 01/16/22 07:07: TSH 7.08 H, Free T3 pg/dL 1.8 L 01/16/22 07:23: Lactic Acid 9.7 H* 01/16/22 08:48: Urine Color Yellow, Urine Clarity Clear, Urine pH 5.0, Ur Specific [place] 1.015, Urine Protein 30 H, Urine Glucose (UA) Normal, Urine Ketones Negative, Urine Occult Blood Negative, Urine Nitrite Negative, Urine Bilirubin 3 H, Urine Urobilinogen Normal, Ur Leukocyte Esterase 25 H, Urine RBC 0 SEEN, Urine WBC 0 SEEN, Ur Squamous Epith Cells 0 SEEN, Urine Bacteria 0 SEEN, Urine Mucus 1+ 01/16/22 14:00: Lactic Acid 5.8 H* 01/16/22 15:00: Hgb 12.0 L, Hct 34.3 L 01/17/22 05:30: WBC 10.5, RBC 3.30 L, Hgb 10.2 L, Hct 29.3 L, MCV 88.8, MCH 30.9, MCHC 34.8, RDW Std Deviation 42.2, RDW Coeff of Anatoly 13.0, Plt Count 149 L, MPV 10.2, Immature Gran % (Auto) 0.200, Neut % (Auto) 82.1 H, Lymph % (Auto) 5.6 L, [place] % (Auto) 12.0 H, Eos % (Auto) 0.0, Baso % (Auto) 0.1, Absolute Neuts (auto) 8.7 H, Absolute Lymphs (auto) 0.59 L, Nucleated RBC % 0, Differential Comment SCANNED 01/17/22 05:30: Sodium 147 H, Potassium 3.2 L, Chloride 108 H, Carbon Dioxide 33.0 H, Anion Gap 6, BUN 63 H, Creatinine 1.94 H, Estim Creat Clear Calc 28.22, Est GFR (MDRD) Af Amer 42 L, Est GFR (MDRD) Non-Af 35 L, BUN/Creatinine Ratio 32.5 H, Glucose 139 H, Calcium 7.9 L, Total Bilirubin 1.10 H, AST 29, ALT 13 L, Alkaline Phosphatase 41 L, Total Protein 6.0 L, Albumin 2.6 L, Globulin 3.4, Albumin/Globulin Ratio 0.8 L Micro: Microbiology 01/16/22 15:00 Gastric Fluid/Contents Gastric Occult Blood - Final Occult Blood Positive Radiology Impression Chest X-Ray 01/16/22 07:12 IMPRESSION: Bibasilar atelectasis. As above. Electronically Signed: Ford Alvarez MD at 7:56 EDT , Abdomen/Pelvis CT 01/16/22 07:51 IMPRESSION: 1. High-grade small bowel obstruction related to adhesions within the left-side of the mid abdomen likely. 2. Left inguinal hernia containing small bowel. 3. Stable hepatic hemangiomata. Electronically Signed: Ford Alvarez MD at 8:56 EDT , ADDENDUM: 01/16/22 0903 IMPRESSION: 1. High-grade small bowel obstruction related to adhesions within the left-side of the mid abdomen likely. 2. Left inguinal hernia containing small bowel. 3. Stable hepatic hemangiomata. N.B. : The above Results were Read Back by Ford Alvarez MD to Luis Gannon DO, and understanding confirmed on 01/16/2022 08:56:59 (ET). Electronically Signed: Ford Alvarez MD at 8:56 EDT , KUB X-Ray 01/16/22 08:56 IMPRESSION: As above. Electronically Signed: Ford Alvarez MD at 13:24 EDT , KUB X-Ray 01/16/22 08:56 IMPRESSION: Malposition of the endogastric tube. Electronically Signed: Ford Alvarez MD at 13:19 EDT , KUB X-Ray 01/16/22 08:56 IMPRESSION: Nasogastric tube coiled likely in the proximal esophagus. Electronically Signed: Emerson Luong MD at 13:40 EDT , KUB X-Ray 01/16/22 15:39 IMPRESSION: No acute findings. Electronically Signed: Ford Alvarez MD at 16:47 EDT , Chest X-Ray 01/16/22 19:58 IMPRESSION: 1. Interval placement of nasogastric tube with the tip below the diaphragm. 2. Interval placement of left upper extremity PICC which is coiled over on itself just superior to the aortic knob likely in the left brachiocephalic vein. 3. Poor inspiration with some bibasilar atelectasis. Electronically Signed: Emerson Luong MD at 20:41 EDT , KUB X-Ray 01/16/22 19:58 IMPRESSION: Nasogastric tube in the left upper quadrant likely in the body the stomach. Electronically Signed: Emerson Luong MD at 20:43 EDT , Charges/Coding Visit Charges Inpatient E&M: 11186 Init Hosp L3
[2022-01-17] MEDS: Potassium Chloride 20mEq/100mL 20 MEQ/100 ML IV.SOLN. 100 MEQ IV BOLUS ×2 (08:20→09:58)
[2022-01-17] MEDS: Amiodarone 360 MG in Dextrose 5% Viaflo Bag 192.8 ML 16.7 MG CONT INF ×2 (09:42→14:28)
--- NOTE | 2022-01-17 09:45 | PN.HOSP_ITS ---
Subjective Subjective Follow-up on hypotension/ARIN/A. fib with RVR/small bowel obstruction: Patient was seen and examined. Overnight, he was slightly confused. PICC line was placed. His blood pressures improved. Urine output is better. NG tube has copious coffee-ground emesis. He denied any dizziness or chest pain or palpitations. Objective Data Objective Data Vital Signs: Vital Signs Temp Pulse Resp BP Pulse Ox O2 Del Method 98.8 F 102 H 16 104/79 98 Room Air 01/17/22 07:00 01/17/22 07:00 01/17/22 07:00 01/17/22 07:00 01/17/22 08:54 01/17/22 08:54 Oxygen Delivery Method Room Air Weight: 84.3 kg Body Mass Index (BMI) 26.3 Intake & Output: Intake and Output for Last 24 Hours 01/15/22 01/16/22 01/17/22 23:59 23:59 23:59 Intake Total 6913 / 6928 2041.66 / 2041.66 Output Total 5905 / 7630 2450 / 2450 Balance 1008 / -702 -408.34 / -408.34 Lab / Micro Data Result Diagrams: 01/17/22 05:30 01/17/22 05:30 Labs: Laboratory Results - last 24 hr 01/16/22 07:07: Free T4 0.80 01/16/22 07:07: TSH 7.08 H, Free T3 pg/dL 1.8 L 01/16/22 14:00: Lactic Acid 5.8 H* 01/16/22 15:00: Hgb 12.0 L, Hct 34.3 L 01/17/22 05:30: WBC 10.5, RBC 3.30 L, Hgb 10.2 L, Hct 29.3 L, MCV 88.8, MCH 30.9, MCHC 34.8, RDW Std Deviation 42.2, RDW Coeff of Anatoly 13.0, Plt Count 149 L, MPV 10.2, Immature Gran % (Auto) 0.200, Neut % (Auto) 82.1 H, Lymph % (Auto) 5.6 L, [place] % (Auto) 12.0 H, Eos % (Auto) 0.0, Baso % (Auto) 0.1, Absolute Neuts (auto) 8.7 H, Absolute Lymphs (auto) 0.59 L, Nucleated RBC % 0, Differential Comment SCANNED 01/17/22 05:30: Sodium 147 H, Potassium 3.2 L, Chloride 108 H, Carbon Dioxide 33.0 H, Anion Gap 6, BUN 63 H, Creatinine 1.94 H, Estim Creat Clear Calc 28.22, Est GFR (MDRD) Af Amer 42 L, Est GFR (MDRD) Non-Af 35 L, BUN/Creatinine Ratio 32.5 H, Glucose 139 H, Calcium 7.9 L, Total Bilirubin 1.10 H, AST 29, ALT 13 L, Alkaline Phosphatase 41 L, Total Protein 6.0 L, Albumin 2.6 L, Globulin 3.4, Albumin/Globulin Ratio 0.8 L Micro: Microbiology 01/16/22 17:50 Urine Catheter - Dumont Urine Culture - Preliminary Culture exhibits no growth. 01/16/22 15:00 Gastric Fluid/Contents Gastric Occult Blood - Final Occult Blood Positive Radiography Diagnostic Testing: Radiology Impression KUB X-Ray 01/16/22 08:56 IMPRESSION: As above. Electronically Signed: Ford Alvarez MD at 13:24 EDT , KUB X-Ray 01/16/22 08:56 IMPRESSION: Malposition of the endogastric tube. Electronically Signed: Ford Alvarez MD at 13:19 EDT , KUB X-Ray 01/16/22 08:56 IMPRESSION: Nasogastric tube coiled likely in the proximal esophagus. Electronically Signed: Emerson Luong MD at 13:40 EDT , KUB X-Ray 01/16/22 15:39 IMPRESSION: No acute findings. Electronically Signed: Ford Alvarez MD at 16:47 EDT , Chest X-Ray 01/16/22 19:58 IMPRESSION: 1. Interval placement of nasogastric tube with the tip below the diaphragm. 2. Interval placement of left upper extremity PICC which is coiled over on itself just superior to the aortic knob likely in the left brachiocephalic vein. 3. Poor inspiration with some bibasilar atelectasis. Electronically Signed: Emerson Luong MD at 20:41 EDT , KUB X-Ray 01/16/22 19:58 IMPRESSION: Nasogastric tube in the left upper quadrant likely in the body the stomach. Electronically Signed: Emerson Luong MD at 20:43 EDT , Physical Exam Narrative Physical exam: General: Alert, Oriented x3, Cooperative, appears frail and unwell, NG tube in situ HEENT: Atraumatic Oral: Moist mucosa Neck: Supple Lungs: Diminished to auscultation Cardiovascular: HS I+II, regular, no murmurs Abdomen: Old midline and epigastric scar, bilateral inguinal scars, slightly distended abdomen, bowel sounds hypoactive, soft, non-tender Extremities: No edema Skin: No rashes, No breakdown Neurological: Grossly intact Psych/Mental Status: Appropriate Assessment & Plan Assessment/Plan (1) Acute hypotension: (2) Acute renal failure: PLAN: Plan 1. Shock, unclear etiology, probable septic(translocation of bacteria from small bowel obstruction) vs severe hypotension from dehydration, GI losses and medication side-effect( continued use of Lasix and lisinopril). Patient initially presented to the ED hypotensive but fluid responsive Did not require pressors overnight s/p left PICC line (01/16/22) Continue on IV Flagyl and Cipro-allergy to penicillin Continue IV fluids, IV antibiotics as above DC Hydrocortisone -started for probable septic shock [employer] Supervisor consulted 2. A fib with RVR, patient with underlying history of A. fib/Graves disease Remains in RVR Started on IV amiodarone, Eliquis on hold Cardiology consult 3. ARIN, likely pre-renal from #1, vomiting and poor po intake in the setting of continued Lasix and lisinopril intake, improving Previous baseline creatinine was 0.54, admitted creatinine of 3.04, creatine today is 1.94 Lasix and lisinopril held Continue IV fluids, trend labs 4. Acute small bowel obstruction likely secondary to adhesions, seen on CT of the abdomen and pelvis H/o exploratory laparotomy with lysis of adhesions in 2017 General surgery following, s/p NG tube placement, conservative management for now Continue IV Cipro and Flagyl Follow-up on general surgery recommendations 5. Probable GI bleed, with coffee ground emesis in NG tube in the setting of recent Eliquis use Drop in hemoglobin from 14.4-10.2 this morning is likely from hemodilution Continue on IV PPI BID We will continue to monitor 6. Lactic acidosis likely secondary to #1 and #4, resolved with IV fluids Admitting lactic acid level is 9.7 7. Graves disease/hyperthyroidism, now with sick euthyroid state Will need to recheck TSH and Free T4/free T3 later 8. DVT PPx-SCDs 9. Code status - Full code Charges/Coding Visit Charges Inpatient E&M: 93217 Subs Hosp L3
[2022-01-17] MEDS: Ciprofloxacin 200 MG/100 ML BAG 100 MG IV (09:59)
--- NOTE | 2022-01-17 14:26 | PCM.CONS.C ---
Assessment & Plan Assessment/Plan (1) Atrial fibrillation with RVR: PLAN: Continue IV amiodarone at this time. If required he can be bolused with IV digoxin (250 mcg x 1 followed by 125mg x 2, 4 hours apart). Hold off on scheduled digoxin due to acute kidney injury. HPI Consult Data Date of Consult: 01/17/22 HPI Narrative Reason for Consultation: Atrial fibrillation with rapid ventricular response HPI Narrative: JEAN PAUL GEE, is a 86 M admitted with small bowel obstruction, acute dehydration, A. fib with RVR. Patient has an NG tube and is currently NPO. He denies any cardiac complaints. Since he cannot take any p.o. medications he has been started on IV amiodarone and his heart rate was around 100-120 PFSH Medical History BPH (benign prostatic hyperplasia) BPH loc w urin obs/LUTS Chronic diastolic heart failure Dementia Essential (primary) hypertension Graves disease Longstanding persistent atrial fibrillation Nonrheumatic tricuspid (valve) insufficiency Secondary pulmonary arterial hypertension Home Medications acetaminophen 325 mg tablet 650 mg PO Q6H PRN PRN Fever 12/21/16 [Rx Last Taken Unknown] apixaban 5 mg tablet 5 mg PO BID #180 tabs 01/26/21 [Rx Last Taken Unknown] furosemide 40 mg tablet (Lasix) 40 mg PO DAILY #90 tabs 02/16/21 [Rx Last Taken Unknown] lisinopril 5 mg tablet 5 mg PO DAILY #90 tabs 02/17/21 [Rx Last Taken Unknown] metoprolol tartrate 50 mg tablet 50 mg PO BID #180 tabs 05/18/21 [Rx Last Taken Unknown] methimazole 5 mg tablet 15 mg PO DAILY 01/16/22 [History Last Taken Unknown] Allergy/AdvReac Type Severity Reaction Status Date / Time rivaroxaban [From Xarelto] AdvReac Severe hematuria Verified 01/16/22 07:01 Penicillins [PCN] AdvReac dont Verified 01/16/22 07:01 remember its long time ago Surgical History History of hernia repair History of laparotomy Social History household members: spouse Smoking Status: Never smoker alcohol intake: never substance use type: does not use Physical Exam Const alert HEENT normocephalic Eyes no scleral icterus Resp normal respiratory effort Cardio Cardio Narrative: Irregular rhythm Psych mental status grossly normal Risk Stratification Risk Stratification Applicable: No Objective Data Vital Signs: Vital Signs Temp Pulse Resp BP Pulse Ox O2 Del Method 99.2 F H 125 H 22 H 124/71 H 100 Room Air 01/17/22 12:00 01/17/22 12:00 01/17/22 12:00 01/17/22 12:00 01/17/22 12:00 01/17/22 12:00 Oxygen Delivery Method Room Air Weight: 185 lb 13.595 oz Body Mass Index (BMI) 26.3 Intake & Output: Intake and Output for Last 24 Hours 01/15/22 01/16/22 01/17/22 23:59 23:59 23:59 Intake Total 6913 / 6928 2709.99 / 2709.99 Output Total 5905 / 7630 3560 / 3560 Balance 1008 / -702 -850.01 / -850.01 Lab / Micro Data Result Diagrams: 01/17/22 05:30 01/17/22 05:30 Labs: Laboratory Results - last 24 hr 01/16/22 07:07: Free T4 0.80 01/16/22 07:07: TSH 7.08 H, Free T3 pg/dL 1.8 L 01/16/22 14:00: Lactic Acid 5.8 H* 01/16/22 15:00: Hgb 12.0 L, Hct 34.3 L 01/17/22 05:30: WBC 10.5, RBC 3.30 L, Hgb 10.2 L, Hct 29.3 L, MCV 88.8, MCH 30.9, MCHC 34.8, RDW Std Deviation 42.2, RDW Coeff of Anatoly 13.0, Plt Count 149 L, MPV 10.2, Immature Gran % (Auto) 0.200, Neut % (Auto) 82.1 H, Lymph % (Auto) 5.6 L, [place] % (Auto) 12.0 H, Eos % (Auto) 0.0, Baso % (Auto) 0.1, Absolute Neuts (auto) 8.7 H, Absolute Lymphs (auto) 0.59 L, Nucleated RBC % 0, Differential Comment SCANNED 01/17/22 05:30: Sodium 147 H, Potassium 3.2 L, Chloride 108 H, Carbon Dioxide 33.0 H, Anion Gap 6, BUN 63 H, Creatinine 1.94 H, Estim Creat Clear Calc 28.22, Est GFR (MDRD) Af Amer 42 L, Est GFR (MDRD) Non-Af 35 L, BUN/Creatinine Ratio 32.5 H, Glucose 139 H, Calcium 7.9 L, Total Bilirubin 1.10 H, AST 29, ALT 13 L, Alkaline Phosphatase 41 L, Total Protein 6.0 L, Albumin 2.6 L, Globulin 3.4, Albumin/Globulin Ratio 0.8 L Micro: Microbiology 01/16/22 17:50 Urine Catheter - Dumont Urine Culture - Preliminary Culture exhibits no growth. 01/16/22 15:00 Gastric Fluid/Contents Gastric Occult Blood - Final Occult Blood Positive Cardiology Labs/Tests 01/16/22 14:00: Lactic Acid 5.8 H* 01/16/22 15:00: Hgb 12.0 L, Hct 34.3 L 01/17/22 05:30: WBC 10.5, RBC 3.30 L, Hgb 10.2 L, Hct 29.3 L, MCV 88.8, MCH 30.9, MCHC 34.8, Plt Count 149 L, MPV 10.2, Immature Gran % (Auto) 0.200, Neut % (Auto) 82.1 H, Lymph % (Auto) 5.6 L, [place] % (Auto) 12.0 H, Eos % (Auto) 0.0, Baso % (Auto) 0.1, Absolute Neuts (auto) 8.7 H, Nucleated RBC % 0 01/17/22 05:30: Sodium 147 H, Potassium 3.2 L, Chloride 108 H, Carbon Dioxide 33.0 H, Anion Gap 6, BUN 63 H, Creatinine 1.94 H, Est GFR (MDRD) Af Amer 42 L, Est GFR (MDRD) Non-Af 35 L, BUN/Creatinine Ratio 32.5 H, Glucose 139 H, Calcium 7.9 L, Total Bilirubin 1.10 H Rhythm: EKG: ECHO: Stress Test: Cardiac Cath: PCI: CT Surgery: Holter monitor: EPS: PPM: CXR: Chest CT Scan: Radiography Diagnostic Testing: Radiology Impression KUB X-Ray 01/16/22 15:39 IMPRESSION: No acute findings. Electronically Signed: Ford Alvarez MD at 16:47 EDT , Chest X-Ray 01/16/22 19:58 IMPRESSION: 1. Interval placement of nasogastric tube with the tip below the diaphragm. 2. Interval placement of left upper extremity PICC which is coiled over on itself just superior to the aortic knob likely in the left brachiocephalic vein. 3. Poor inspiration with some bibasilar atelectasis. Electronically Signed: Emerson Luong MD at 20:41 EDT , KUB X-Ray 01/16/22 19:58 IMPRESSION: Nasogastric tube in the left upper quadrant likely in the body the stomach. Electronically Signed: Emerson Luong MD at 20:43 EDT ,
[2022-01-18] VITALS (23 sets, daily range): BP systolic 114–162; BP diastolic 71–106; PULSE 81–123; RESP 12–23; TEMP 36.7–37; O2SAT 94–100
[2022-01-18] MEDS: Lactated Ringers 1,000 ML 100 ML IV (02:48)
[2022-01-18] MEDS: Amiodarone 360 MG in Dextrose 5% Viaflo Bag 192.8 ML 16.7 MG CONT INF ×2 (02:48→14:59)
--- NOTE | 2022-01-18 06:04 | PN.CC_ITS ---
Assessment & Plan Assessment/Plan (1) SBO (small bowel obstruction): PLAN: Plan RECOMMENDATIONS: 1. Continue antimicrobials, pending finalized culture results. 2. Continue supplemental IV fluid hydration until diet can be advanced. 3. Conservative management of bowel obstruction per general surgery recommendations. 4. Continue PPI therapy. 5. Encourage incentive spirometer use and mobilize patient as tolerated. 6. Given the patient's lack of ICU or pulmonary needs, will sign off. Please call with any additional questions. IMPRESSIONS: 1. Shock, multifactorial etiology Most likely secondary to hypovolemia although translocation of bacteria secondary to small bowel obstruction is a possibility. The patient did respond to IV fluid resuscitation. He remains hemodynamically stable without need for vasopressor support. If cultures remain negative over the next 24 to 48 hours, antibiotics can be discontinued from my perspective. Continue IV fluids in the absence of any significant p.o. intake. 2. Acute kidney injury Most likely prerenal in etiology. Creatinine is improving with volume expansion. Continue to monitor urine output. No current indication for renal replacement therapy. 3. Atrial fibrillation with RVR Continue current rate/rhythm control strategy. 4. Acute small bowel obstruction The patient does have a history of previous intervention secondary to adhesions. Plan to continue current supportive measures including bowel rest and NG suctioning. General surgery is following to assist with medical management. 5. Advanced age/Graves' disease/hypothyroidism Complicates care, management, recovery and prognosis. Continue home medications as indicated. This note was generated with [employer] dictation software. It may contain incorrect words, spelling, and punctuation that were not noted in checking the note before signing. Subjective Subjective The patient was seen and examined at the bedside this morning. Events from the last 24 hours have been reviewed. The patient is currently afebrile, hemod ynamically stable and maintaining appropriate oxygen saturations on room air. The patient is documented to be overall net +1.5 L for the hospitalization. Potassium is low this morning at 3.2. Creatinine has improved to 1.94. The patient is still having a fair amount of output from his nasogastric tube. He is requesting water this morning. Objective Data Objective Data The patient's most recent lab work, culture data and imaging studies have all been personally reviewed. Stool for occult blood was positive on January 16. Vital Signs: Vital Signs Temp Pulse Resp BP Pulse Ox O2 Del Method 98.1 F 116 H 20 H 153/99 H 97 Room Air 01/18/22 02:39 01/18/22 04:00 01/18/22 03:00 01/18/22 03:00 01/18/22 03:00 01/18/22 03:00 Oxygen Delivery Method Room Air Weight: 185 lb 13.595 oz Body Mass Index (BMI) 26.3 Intake & Output: Intake and Output for Last 24 Hours 01/16/22 01/17/22 01/18/22 23:59 23:59 23:59 Intake Total 6913 / 6928 3886.97 / 3886.97 994.29 / 994.29 Output Total 5905 / 7630 4385 / 4385 Balance 1008 / -702 -498.03 / -498.03 994.29 / 994.29 Lab / Micro Data Attestation: I reviewed the patient's lab results. Result Diagrams: 01/19/22 05:40 01/19/22 05:40 Labs: Laboratory Results - last 24 hr 01/17/22 05:30: Differential Comment SCANNED 01/17/22 05:30: Sodium 147 H, Potassium 3.2 L, Chloride 108 H, Carbon Dioxide 33.0 H, Anion Gap 6, BUN 63 H, Creatinine 1.94 H, Estim Creat Clear Calc 28.22, Est GFR (MDRD) Af Amer 42 L, Est GFR (MDRD) Non-Af 35 L, BUN/Creatinine Ratio 32.5 H, Glucose 139 H, Calcium 7.9 L, Total Bilirubin 1.10 H, AST 29, ALT 13 L, Alkaline Phosphatase 41 L, Total Protein 6.0 L, Albumin 2.6 L, Globulin 3.4, Albumin/Globulin Ratio 0.8 L Micro: Microbiology 01/16/22 17:50 Urine Catheter - Dumont Urine Culture - Preliminary Culture exhibits no growth. 01/16/22 15:00 Gastric Fluid/Contents Gastric Occult Blood - Final Occult Blood Positive Physical Exam Const alert and no apparent distress General Appearance: cooperative HEENT normocephalic and head/scalp atraumatic HEENT Narrative: Nasogastric tube in place. Eyes PERRL, EOMs intact bilaterally and conjunctivae normal Neck supple General: trachea midline Chest inspection of chest normal Resp normal respiratory effort Auscultation: Negative for rales, rhonchi or wheezes Cardio S1 normal heart sound and S2 normal heart sound Rhythm: abnormal rhythm GI normal to inspection, nondistended, normoactive bowel sounds Extremity no clubbing, cyanosis or edema Skin no rashes or lesions noted Neuro CN's II-XII intact bilaterally, moves all extremities and no focal motor deficits Psych cooperative and affect normal Charges/Coding Visit Charges Inpatient E&M: 26878 Subs Hosp L2
[2022-01-18] MEDS: metroNIDAZOLE 500 MG/100 ML BAG 100 MG IV ×3 (06:06→21:18)
[2022-01-18 06:17] LABS: Absolute Lymphocyte Count 1.13 X10^3/uL (0.83-4.51); Hemoglobin 10.4 g/dL (13.0-16.5); Lymphocyte # 1.13 X10^3/ul (0.83-4.51); Lymphocyte % 13.5 % (19-41); Mean Corp Hgb Conc 33.5 g/dL (32-36); Mean Corpuscular Hgb 30.2 pg (27.0-32.0); Mean Corpuscular Volume 90.1 fL (80-94); Mean Platelet Vol. 10.5 fl (6.2-12.0); Monocyte# 1.29 X10^3/uL; Monocyte% 15.4 % (0-10); NRBC Flagged by Analyzer 0 % (0-5); Neutrophil # 5.95 X10^3/uL (2.7-7.7); Neutrophil % 70.7 % (47-70); Platelet Count 152 K/mm3 (150-450); RBC Distribution Width CV 13.5 % (11.6-14.6); RBC Distribution Width SD 44.1 fl (35.1-43.9); Red Blood Count 3.44 M/mm3 (4.6-6.2); White Blood Count 8.4 K/mm3 (4.4-11.0)
[2022-01-18 06:51] LABS: ALB/GLOB Ratio 0.8 RATIO (0.9-2.4); AST(SGOT) 25 U/L (15-37); Alanine Aminotransfer ALT/SGPT 17 U/L (16-61); Albumin, Serum 2.7 g/dL (3.2-5.0); Alkaline Phosphatase 42 U/L (45-117); Anion Gap 3 (5-15); BUN 32 mg/dL (7-18); BUN/Creat Ratio 25.4 RATIO (10-20); Calcium,Total 8.5 mg/dL (8.5-10.1); Chloride 117 mmol/L (98-107); Creatinine, Serum 1.26 mg/dL (0.70-1.30); EST Glomerular Filtration Rate 58 mL/min (>60); Est Glom Filt Rate - Afr Amer 70 mL/min (>60); Estimated Creatinine Clearance 43.45 ml/min; Globulin 3.5 g/dL (2.2-4.2); Glucose 124 mg/dL (74-106); Magnesium 2.2 mg/dL (1.6-2.6); Phosphorus 1.8 mg/dL (2.5-4.9); Potassium 3.5 mmol/L (3.5-5.1); Protein, Total 6.2 g/dL (6.4-8.2); Sodium Level 151 mmol/L (136-145)
--- NOTE | 2022-01-18 07:34 | PN.HOSP_ITS ---
Subjective Subjective Follow-up for small bowel obstruction, A. fib with RVR, ARIN and hypotension. Patient passing small flatus. Discussed with surgeon Dr. Cardenas and senior care manager Dr. Meyers. Objective Data Objective Data Vital Signs: Vital Signs Temp Pulse Resp BP Pulse Ox O2 Del Method 98.1 F 108 H 20 H 153/99 H 97 Room Air 01/18/22 02:39 01/18/22 07:00 01/18/22 03:00 01/18/22 03:00 01/18/22 03:00 01/18/22 03:00 Oxygen Delivery Method Room Air Weight: 185 lb 6.54 oz Body Mass Index (BMI) 26.3 Intake & Output: Intake and Output for Last 24 Hours 01/16/22 01/17/22 01/18/22 23:59 23:59 23:59 Intake Total 6913 / 6928 3886.97 / 3886.97 1114.29 / 1114.29 Output Total 5905 / 7630 4385 / 4385 1450 / 1450 Balance 1008 / -702 -498.03 / -498.03 -335.71 / -335.71 Lab / Micro Data Result Diagrams: 01/18/22 06:05 01/18/22 06:05 Labs: Laboratory Results - last 24 hr 01/18/22 06:05: WBC 8.4, RBC 3.44 L, Hgb 10.4 L, Hct 31.0 L, MCV 90.1, MCH 30.2, MCHC 33.5, RDW Std Deviation 44.1 H, RDW Coeff of Anatoly 13.5, Plt Count 152, MPV 10.5, Immature Gran % (Auto) 0.400, Neut % (Auto) 70.7 H, Lymph % (Auto) 13.5 L, [place] % (Auto) 15.4 H, Eos % (Auto) 0.0, Baso % (Auto) 0.0, Absolute Neuts (auto) 6.0, Absolute Lymphs (auto) 1.13, Nucleated RBC % 0 01/18/22 06:05: Sodium 151 H, Potassium 3.5, Chloride 117 H, Carbon Dioxide 31.0, Anion Gap 3 L, BUN 32 H, Creatinine 1.26, Estim Creat Clear Calc 43.45, Est GFR (MDRD) Af Amer 70, Est GFR (MDRD) Non-Af 58 L, BUN/Creatinine Ratio 25.4 H, Glucose 124 H, Calcium 8.5, Phosphorus 1.8 L, Magnesium 2.2, Total Bilirubin 1.10 H, AST 25, ALT 17, Alkaline Phosphatase 42 L, Total Protein 6.2 L, Albumin 2.7 L, Globulin 3.5, Albumin/Globulin Ratio 0.8 L Micro: Microbiology 01/16/22 17:50 Urine Catheter - Dumont Urine Culture - Preliminary Culture exhibits no growth. 01/16/22 15:00 Gastric Fluid/Contents Gastric Occult Blood - Final Occult Blood Positive Physical Exam Narrative Physical exam: General: Alert, Oriented x3, Cooperative, appears frail and unwell, NG tube in situ HEENT: Atraumatic Oral: Moist mucosa Neck: Supple Lungs: Diminished to auscultation Cardiovascular: HS I+II, regular, no murmurs Abdomen: Old midline and epigastric scar, bilateral inguinal scars, slightly distended abdomen, bowel sounds hypoactive, soft, non-tender Extremities: No edema Skin: No rashes, No breakdown Neurological: Grossly intact Psych/Mental Status: Appropriate Const Constitutional Narrative: General: Alert, Oriented x3, Cooperative HEENT: NG tube, yellowish-green aspirate. Atraumatic, PERRLA, EOMI, Normocephalic Oral: Oral mucosa dry. No Gingival or Mucosal Lesions/ Ulcerations Neck: Supple, No JVD, Negative Carotid Bruits Lungs: Air entry diminished in bilateral lung bases. No crepitation/rhonchi Cardiovascular: Sinus tachycardia 108 to 110/min, Normal S1, Normal S2, No murmurs Abdomen: Sluggish bowel sounds, low pitch. Surgical scar in midline. Soft, nontender, nondistended. : No renal angle tenderness. No suprapubic tenderness. Extremities: No edema, Capillary Refill Less than 3 Seconds Skin: No rashes, No breakdown Musculoskeletal: No Tenderness to Palpation of Joints or Extremities. Muscle strength 4+/5 at major joints. Neurological: Cranial nerves II-XII grossly intact, DTR 2+/4 Psych/Mental Status: Normal Affect, Appropriate. Assessment & Plan Assessment/Plan (1) Acute hypotension: (2) Acute renal failure: PLAN: Plan 1. Shock, unclear etiology, most probably due to hypovolemia due to GI losses but possibility of translocation of bacteria from small bowel obstruction), and medication side-effect (continued use of Lasix and lisinopril). Patient did not require pressors. Hypotension was responsive to fluid. Has left arm PICC line. On IV Cipro and Flagyl. Blood culture negative for more than 48 hours. Urine culture no growth. Patient initially presented to the ED hypotensive but fluid responsive Did not require pressors overnight s/p left PICC line (01/16/22) Continue on IV Flagyl and Cipro-allergy to penicillin Continue IV fluids, IV antibiotics as above DC Hydrocortisone -started for probable septic shock Paraprofessional Interpreter consulted 2. A fib with RVR, patient with underlying history of A. fib/Graves disease: Heart rate is not optimally controlled, still in 100s. Patient on IV amiodarone, Eliquis on hold. Discussed with senior care manager, if heart rate goes more than 120, will start IV Cardizem drip. 3. ARIN, likely pre-renal due to hypovolemia with chronic Lasix and lisinopril: Previous baseline creatinine was 0.54, admitted creatinine of 3.04, creatine today is 1.26. BUN 32, anion gap 3. Lasix and lisinopril held 4. Acute small bowel obstruction likely secondary to adhesions, seen on CT of the abdomen and pelvis H/o exploratory laparotomy with lysis of adhesions in 2017. 01/18: Discussed with Dr. Cardenas. Patient passed a small flatus. Abdominal x- ray ordered. If abdominal x-ray shows dissolution of obstruction plan for NG tube removal and starting on clear liquid. Continue IV antibiotics. 5. GI bleed, with coffee ground emesis in NG tube in the setting of recent Eliquis use Drop in hemoglobin from 14.4-10.2 this morning is likely from hemodilution: Hemo globin is a stable, 10.4. Continue monitoring hemoglobin Continue on IV PPI BID. Stool for occult blood positive 6. Lactic acidosis likely secondary to #1 and #4, resolved with IV fluids Admitting lactic acid level is 9.7 7. Graves disease/hyperthyroidism, now with sick euthyroid state Will need to recheck TSH and Free T4/free T3 later 8. DVT PPx-SCDs 9. Code status - Full code Charges/Coding Visit Charges Inpatient E&M: 18712 Subs Hosp L2
--- NOTE | 2022-01-18 08:36 | RAD_ITS ---
STUDY: X-RAY - ABDOMEN/PELVIS REASON FOR EXAM: Male, 86 years old. Partial small bowel obstruction TECHNIQUE: AP and left lateral decubitus views on 4 images. COMPARISON: CT abdomen and pelvis as well as a number of plain film views of the chest and upper abdomen 01/16/2022 FINDINGS: Subsegmental atelectasis persists in the left lung base. In one decubitus view there is suggestion of a layering left pleural effusion, but this is not clearly seen in the remaining images and could be a summation artifact. Nasogastric tube is been pulled back compared to the 01/16/2022 image at 1537 hours, its distal end still remaining in the decompressed stomach. Gas fluid levels are seen in a loop of small bowel dilated to roughly 4 cm and the left flank, accompanied by other segments of nondistended small bowel and colon. There is no demonstrated free abdominal air. The visualized liver, spleen and kidneys are grossly normal in size and morphology. Rectal probe or Dumont catheter overlaps the midline of the low pelvis. Rounded gas lucency over the low midline pelvis may be within the urinary bladder or the rectal vault. There are stable multilevel degenerative changes of the thoracolumbar spine. RAD/Abd Inc Decub and/or Erect IMPRESSION: 1. Findings consistent with partial small bowel obstruction versus local ileus in the left flank, the former favored on CT. No free gas. 2. Nasogastric tube is been pulled back, but its distal end remains in the stomach. 3. Stable mild atelectasis in the left lung base. Question of layering left pleural effusion. 4. Rectal probe or Dumont catheter in the midline low pelvis. Gas lucency in the same area may be within the urinary bladder or the rectal vault. Electronically Signed: Naresh Tinoco MD at 9:29 EDT ,
--- NOTE | 2022-01-18 08:37 | PCM.PN.SRG ---
Subjective Subjective Patient states he has had some small flatus. No bowel movements. Not complaining of any abdominal pain. Objective Data Objective Data GuardingAbdomen is soft nontender nondistended peritoneal signs identified. Vital Signs: Vital Signs Temp Pulse Resp BP Pulse Ox O2 Del Method 98.1 F 108 H 20 H 153/99 H 97 Room Air 01/18/22 02:39 01/18/22 07:00 01/18/22 03:00 01/18/22 03:00 01/18/22 03:00 01/18/22 07:58 Oxygen Delivery Method Room Air Weight: 185 lb 6.54 oz Body Mass Index (BMI) 26.3 Intake & Output: Intake and Output for Last 24 Hours 01/16/22 01/17/22 01/18/22 23:59 23:59 23:59 Intake Total 6913 / 6928 3886.97 / 3886.97 1214.29 / 1214.29 Output Total 5905 / 7630 4385 / 4385 1450 / 1450 Balance 1008 / -702 -498.03 / -498.03 -235.71 / -235.71 Lab / Micro Data Result Diagrams: 01/18/22 06:05 01/18/22 06:05 Labs: Laboratory Results - last 24 hr 01/18/22 06:05: WBC 8.4, RBC 3.44 L, Hgb 10.4 L, Hct 31.0 L, MCV 90.1, MCH 30.2, MCHC 33.5, RDW Std Deviation 44.1 H, RDW Coeff of Anatoly 13.5, Plt Count 152, MPV 10.5, Immature Gran % (Auto) 0.400, Neut % (Auto) 70.7 H, Lymph % (Auto) 13.5 L, [place] % (Auto) 15.4 H, Eos % (Auto) 0.0, Baso % (Auto) 0.0, Absolute Neuts (auto) 6.0, Absolute Lymphs (auto) 1.13, Nucleated RBC % 0 01/18/22 06:05: Sodium 151 H, Potassium 3.5, Chloride 117 H, Carbon Dioxide 31.0, Anion Gap 3 L, BUN 32 H, Creatinine 1.26, Estim Creat Clear Calc 43.45, Est GFR (MDRD) Af Amer 70, Est GFR (MDRD) Non-Af 58 L, BUN/Creatinine Ratio 25.4 H, Glucose 124 H, Calcium 8.5, Phosphorus 1.8 L, Magnesium 2.2, Total Bilirubin 1.10 H, AST 25, ALT 17, Alkaline Phosphatase 42 L, Total Protein 6.2 L, Albumin 2.7 L, Globulin 3.5, Albumin/Globulin Ratio 0.8 L Micro: Microbiology 01/16/22 08:14 Blood Culture (Wb) - Anticubital Right Blood Culture - Preliminary No growth in 48 hours. 01/16/22 08:12 Blood Culture (Wb) - Anticubital Left Blood Culture - Preliminary No growth in 48 hours. 01/16/22 17:50 Urine Catheter - Dumont Urine Culture - Preliminary Culture exhibits no growth. 01/16/22 15:00 Gastric Fluid/Contents Gastric Occult Blood - Final Occult Blood Positive Assessment & Plan Assessment/Plan (1) SBO (small bowel obstruction): PLAN: We will check a abdominal flatplate and upright in radiology. We will clamp NG tube and do a trial. If this looks good and his KUB looks good we will remove NG tube.
[2022-01-18] MEDS: Ciprofloxacin 200 MG/100 ML BAG 100 MG IV ×2 (09:14→21:18)
[2022-01-18] MEDS: Lactulose 20 GM/30 ML UDC 30 GM NG (10:47)
--- NOTE | 2022-01-18 15:48 | NURSING ---
NG tube removed per MD order. Pt tolerated well. Assisted pt to order clear liquid supper.
[2022-01-19] VITALS (22 sets, daily range): BP systolic 120–165; BP diastolic 75–97; PULSE 68–94; RESP 12–20; TEMP 36.6–37.2; O2SAT 93–100
[2022-01-19] MEDS: Amiodarone 360 MG in Dextrose 5% Viaflo Bag 192.8 ML 16.7 MG CONT INF (01:40)
[2022-01-19] MEDS: metroNIDAZOLE 500 MG/100 ML BAG 100 MG IV ×3 (05:37→21:06)
[2022-01-19 06:10] LABS: Absolute Lymphocyte Count 1.64 X10^3/uL (0.83-4.51); Absolute Neutrophil Count 4.6 X10^3/uL (2.0-7.7); Eosinophil# 0.07 X10^3/uL; Hematocrit 27.4 % (40-54); Lymphocyte # 1.64 X10^3/ul (0.83-4.51); Lymphocyte % 22.5 % (19-41); Mean Corp Hgb Conc 32.8 g/dL (32-36); Mean Corpuscular Hgb 30.6 pg (27.0-32.0); Mean Corpuscular Volume 93.2 fL (80-94); Mean Platelet Vol. 10.4 fl (6.2-12.0); Monocyte# 0.99 X10^3/uL; Monocyte% 13.6 % (0-10); NRBC Flagged by Analyzer 0 % (0-5); Neutrophil # 4.55 X10^3/uL (2.7-7.7); Neutrophil % 62.2 % (47-70); Platelet Count 141 K/mm3 (150-450); RBC Distribution Width CV 13.4 % (11.6-14.6); RBC Distribution Width SD 45.8 fl (35.1-43.9); Red Blood Count 2.94 M/mm3 (4.6-6.2); White Blood Count 7.3 K/mm3 (4.4-11.0)
[2022-01-19 06:42] LABS: ALB/GLOB Ratio 0.7 RATIO (0.9-2.4); AST(SGOT) 16 U/L (15-37); Alanine Aminotransfer ALT/SGPT 13 U/L (16-61); Albumin, Serum 2.2 g/dL (3.2-5.0); Alkaline Phosphatase 36 U/L (45-117); Anion Gap 6 (5-15); BUN 16 mg/dL (7-18); Calcium,Total 7.6 mg/dL (8.5-10.1); Chloride 107 mmol/L (98-107); Creatinine, Serum 1.07 mg/dL (0.70-1.30); EST Glomerular Filtration Rate 70 mL/min (>60); Est Glom Filt Rate - Afr Amer 84 mL/min (>60); Estimated Creatinine Clearance 51.17 ml/min; Globulin 3.3 g/dL (2.2-4.2); Glucose 111 mg/dL (74-106); Magnesium 1.9 mg/dL (1.6-2.6); Phosphorus 1.4 mg/dL (2.5-4.9); Potassium 3.3 mmol/L (3.5-5.1); Protein, Total 5.5 g/dL (6.4-8.2); Sodium Level 141 mmol/L (136-145)
[2022-01-19] MEDS: Ciprofloxacin 200 MG/100 ML BAG 100 MG IV ×2 (09:04→21:06)
--- NOTE | 2022-01-19 09:07 | PN.CARD_ITS ---
Subjective Subjective The patient was seen and evaluated. Appears to be doing better. Taking p.o. medications. Objective Data Vital Signs: Vital Signs Temp Pulse Resp BP Pulse Ox O2 Del Method 97.9 F 72 12 130/83 H 98 Room Air 01/19/22 07:00 01/19/22 08:00 01/19/22 08:00 01/19/22 08:00 01/19/22 08:00 01/19/22 08:00 Oxygen Delivery Method Room Air Weight: 193 lb 12.581 oz Body Mass Index (BMI) 26.3 Intake & Output: Intake and Output for Last 24 Hours 01/17/22 01/18/22 01/19/22 23:59 23:59 23:59 Intake Total 3886.97 / 3886.97 3396.51 / 5496.51 5757.80 / 5757.80 Output Total 4385 / 4385 2550 / 2800 450 / 450 Balance -498.03 / -498.03 846.51 / 2696.51 5307.80 / 5307.80 Lab / Micro Data Result Diagrams: 01/19/22 05:40 01/19/22 05:40 Labs: Laboratory Results - last 24 hr 01/19/22 05:40: WBC 7.3, RBC 2.94 L, Hgb 9.0 L, Hct 27.4 L, MCV 93.2, MCH 30.6, MCHC 32.8, RDW Std Deviation 45.8 H, RDW Coeff of Anatoly 13.4, Plt Count 141 L, MPV 10.4, Immature Gran % (Auto) 0.700, Neut % (Auto) 62.2, Lymph % (Auto) 22.5, [place] % (Auto) 13.6 H, Eos % (Auto) 1.0, Baso % (Auto) 0.0, Absolute Neuts (auto) 4.6, Absolute Lymphs (auto) 1.64, Nucleated RBC % 0 01/19/22 05:40: Sodium 141, Potassium 3.3 L, Chloride 107, Carbon Dioxide 28.0, Anion Gap 6, BUN 16, Creatinine 1.07, Estim Creat Clear Calc 51.17, Est GFR (MDRD) Af Amer 84, Est GFR (MDRD) Non-Af 70, BUN/Creatinine Ratio 15.0, Glucose 111 H, Calcium 7.6 L, Phosphorus 1.4 L, Magnesium 1.9, Total Bilirubin 0.70, AST 16, ALT 13 L, Alkaline Phosphatase 36 L, Total Protein 5.5 L, Albumin 2.2 L, Globulin 3.3, Albumin/Globulin Ratio 0.7 L Micro: Microbiology 01/16/22 17:50 Urine Catheter - Dumont Urine Culture - Final Culture exhibits no growth. 01/16/22 08:14 Blood Culture (Wb) - Anticubital Right Blood Culture - Preliminary No growth in 48 hours. 01/16/22 08:12 Blood Culture (Wb) - Anticubital Left Blood Culture - Preliminary No growth in 48 hours. Rhythm Strip Rhythm Strip: A-fib Cardiology Labs/Tests 01/19/22 05:40: WBC 7.3, RBC 2.94 L, Hgb 9.0 L, Hct 27.4 L, MCV 93.2, MCH 30.6, MCHC 32.8, Plt Count 141 L, MPV 10.4, Immature Gran % (Auto) 0.700, Neut % (Auto) 62.2, Lymph % (Auto) 22.5, [place] % (Auto) 13.6 H, Eos % (Auto) 1.0, Baso % (Auto) 0.0, Absolute Neuts (auto) 4.6, Nucleated RBC % 0 01/19/22 05:40: Sodium 141, Potassium 3.3 L, Chloride 107, Carbon Dioxide 28.0, Anion Gap 6, BUN 16, Creatinine 1.07, Est GFR (MDRD) Af Amer 84, Est GFR (MDRD) Non-Af 70, BUN/Creatinine Ratio 15.0, Glucose 111 H, Calcium 7.6 L, Phosphorus 1.4 L, Magnesium 1.9, Total Bilirubin 0.70 Rhythm: EKG: ECHO: Stress Test: Cardiac Cath: PCI: CT Surgery: Holter monitor: EPS: PPM: CXR: Chest CT Scan: Radiography Diagnostic Testing: Radiology Impression Abdomen X-Ray 01/18/22 08:36 IMPRESSION: 1. Findings consistent with partial small bowel obstruction versus local ileus in the left flank, the former favored on CT. No free gas. 2. Nasogastric tube is been pulled back, but its distal end remains in the stomach. 3. Stable mild atelectasis in the left lung base. Question of layering left pleural effusion. 4. Rectal probe or Dumont catheter in the midline low pelvis. Gas lucency in the same area may be within the urinary bladder or the rectal vault. Electronically Signed: Naresh Tinoco MD at 9:29 EDT , Physical Exam Const alert, oriented x3 and no apparent distress General Appearance: cooperative HEENT hearing grossly normal bilaterally Head and Scalp: atraumatic Eyes EOMs intact bilaterally Neck General: normal visual inspection Chest inspection of chest normal and palpation of chest normal Resp normal respiratory effort Auscultation: clear to auscultation bilaterally Cardio S1 normal heart sound and S2 normal heart sound Cardio Narrative: Atrial fibrillation Jugular Venous Distention: JVD GI normal to inspection, nondistended, normoactive bowel sounds Extremity normal capillary refill and no pedal edema Peripheral Pulses: Yes pulses 2+ throughout and femoral pulses present Skin no rashes or lesions noted Neuro oriented x3 and CN's II-XII intact bilaterally Psych Appearance: grossly normal and appropriate Assessment & Plan Assessment/Plan (1) Atrial fibrillation with RVR: PLAN: Patient has a history of atrial fibrillation with a rapid ventricular response rate. Had been on intravenous amiodarone. Now that the patient is taking oral medications I would recommend the following. * Start p.o. amiodarone 200 mg twice daily * Start metoprolol 50 mg twice daily * Will start Eliquis later today (2) Essential (primary) hypertension: PLAN: His blood pressure appears to be under good control at this time and will continue with the beta-reva and wait for his renal function to improve before adding the NIURKA inhibitor. (3) Chronic diastolic heart failure: PLAN: Does have a history of chronic diastolic heart failure We will continue to observe for now. Thank you for allowing me to participate in the care of your patient. Please don't hesitate to call if any issues arise.
--- NOTE | 2022-01-19 09:10 | ECHOD_ITS ---
Version 2 Reason For Study: ATRIAL FIB-FLUTTER Procedure This was a 2D Doppler, Color Flow transthoracic echocardiogram. Exam performed portable in patient room. Left Ventricle Normal LV size. Left ventricular systolic function is normal. The estimated ejection fraction is 55 %. No regional wall motion abnormalities noted. Right Ventricle Normal RV size. Normal systolic function. Atria The left atrium is moderately enlarged. The right atrium is mildly enlarged. Mitral Valve Normal mitral valve. Mild (1+) eccentric mitral valve insufficiency. Tricuspid Valve Normal tricuspid valve. Mild to moderate (1-2+) tricuspid valve insufficiency. Pulmonary artery systolic pressure is 46 mmHg. Aortic Valve Trisinus/trileaflet aortic valve. Moderate diffuse aortic valve thickening. Mild (1+) eccentric aortic valve insufficiency. Pulmonic Valve Normal pulmonic valve. Great Vessels Mildly dilated aortic root. The pulmonary artery is normal size. Normal inferior vena cava. Pericardium/Pleural No pericardial effusion. MMode/2D Measurements & Calculations LVIDd: 5.2 cm IVSd: 0.83 cm Ao root diam: 4.1 cm LVIDs: 2.8 cm LVPWd: 0.84 cm RVDd: 4.0 cm FS: 46.5 % LAV(MOD-sp4): 123.5 ml LVAd ap4: 27.7 cm2 SV(MOD-sp4): 41.5 ml LVLd ap4: 8.4 cm EDV(MOD-sp4): 74.2 ml EDV(sp4-el): 77.7 ml LVAs ap4: 17.1 cm2 LVLs ap4: 8.0 cm ESV(MOD-sp4): 32.7 ml ESV(sp4-el): 31.1 ml EF(MOD-sp4): 56.0 % EF(sp4-el): 60.0 % SV(sp4-el): 46.6 ml LA A4 area: 33.4 cm2 LA dimension(2D): 4.1 cm RA A4 area: 25.7 cm2 Doppler Measurements & Calculations MV E max kathleen: 86.0 cm/sec Ao V2 max: 115.6 cm/sec AI max kathleen: 402.1 cm/sec Ao max P.4 mmHg AI max P.7 mmHg Ao V2 mean: 78.7 cm/sec Ao mean P.9 mmHg AI dec slope: 132.8 cm/sec2 Ao V2 VTI: 25.4 cm AI P1/2t: 886.7 msec LV V1 max: 104.6 cm/sec MR max kathleen: 530.2 cm/sec PA V2 max: 70.5 cm/sec LV V1 max P.4 mmHg MR max P.4 mmHg LV V1 mean P.2 mmHg MR mean kathleen: 442.5 cm/sec LV V1 mean: 68.8 cm/sec MR mean P.4 mmHg LV V1 VTI: 23.0 cm MR VTI: 192.0 cm TR max kathleen: 330.5 cm/sec TR max P.7 mmHg ECHO/Echo Complete Interpretation Summary Normal LV size. Left ventricular systolic function is normal. The estimated ejection fraction is 55 %. Mild (1+) eccentric aortic valve insufficiency. Mild (1+) eccentric mitral valve insufficiency. Mildly dilated aortic root. Pulmonary artery systolic pressure is 46 mmHg. The left atrium is moderately enlarged. The right atrium is mildly enlarged. Ordering Physician: Mandeep Jung Performed By: Betty Landa RCS
[2022-01-19] MEDS: Amiodarone 200 MG Tablet PO ×2 (09:11→21:06)
[2022-01-19] MEDS: Metoprolol Tartrate 50 MG Tablet PO ×2 (09:11→21:07)
--- NOTE | 2022-01-19 10:43 | PCM.PN.SRG ---
Subjective Subjective No nausea or vomiting since pulling out NG tube. Patient is passing flatus. Has not had any bowel movements. Objective Data Objective Data Abdomen is soft and nontender and nondistended Vital Signs: Vital Signs Temp Pulse Resp BP Pulse Ox O2 Del Method 97.9 F 86 12 126/79 H 100 Room Air 01/19/22 07:00 01/19/22 10:00 01/19/22 10:00 01/19/22 10:00 01/19/22 10:00 01/19/22 10:00 Oxygen Delivery Method Room Air Weight: 193 lb 12.581 oz Body Mass Index (BMI) 26.3 Intake & Output: Intake and Output for Last 24 Hours 01/17/22 01/18/22 01/19/22 23:59 23:59 23:59 Intake Total 3886.97 / 3886.97 3396.51 / 5496.51 6597.19 / 6597.19 Output Total 4385 / 4385 2550 / 2800 450 / 450 Balance -498.03 / -498.03 846.51 / 2696.51 6147.19 / 6147.19 Lab / Micro Data Result Diagrams: 01/19/22 05:40 01/19/22 05:40 Labs: Laboratory Results - last 24 hr 01/19/22 05:40: WBC 7.3, RBC 2.94 L, Hgb 9.0 L, Hct 27.4 L, MCV 93.2, MCH 30.6, MCHC 32.8, RDW Std Deviation 45.8 H, RDW Coeff of Anatoly 13.4, Plt Count 141 L, MPV 10.4, Immature Gran % (Auto) 0.700, Neut % (Auto) 62.2, Lymph % (Auto) 22.5, [place] % (Auto) 13.6 H, Eos % (Auto) 1.0, Baso % (Auto) 0.0, Absolute Neuts (auto) 4.6, Absolute Lymphs (auto) 1.64, Nucleated RBC % 0 01/19/22 05:40: Sodium 141, Potassium 3.3 L, Chloride 107, Carbon Dioxide 28.0, Anion Gap 6, BUN 16, Creatinine 1.07, Estim Creat Clear Calc 51.17, Est GFR (MDRD) Af Amer 84, Est GFR (MDRD) Non-Af 70, BUN/Creatinine Ratio 15.0, Glucose 111 H, Calcium 7.6 L, Phosphorus 1.4 L, Magnesium 1.9, Total Bilirubin 0.70, AST 16, ALT 13 L, Alkaline Phosphatase 36 L, Total Protein 5.5 L, Albumin 2.2 L, Globulin 3.3, Albumin/Globulin Ratio 0.7 L Micro: Microbiology 01/16/22 17:50 Urine Catheter - Dumont Urine Culture - Final Culture exhibits no growth. 01/16/22 08:14 Blood Culture (Wb) - Anticubital Right Blood Culture - Preliminary No growth in 48 hours. 01/16/22 08:12 Blood Culture (Wb) - Anticubital Left Blood Culture - Preliminary No growth in 48 hours. 01/16/22 15:00 Gastric Fluid/Contents Gastric Occult Blood - Final Occult Blood Positive Rhythm Strip Rhythm Strip: A-fib Assessment & Plan Assessment/Plan (1) SBO (small bowel obstruction): PLAN: We will advance to full liquid diet. Will give him another dose of lactulose. No surgical interventions from my standpoint.
--- NOTE | 2022-01-19 10:45 | CASEMGMT ---
RN ORALIA assessment: Face to Face with patient for initial transition planning/care coordination assessment. RN CM introduced self and role at [facility], pt voices understanding and consents to assessment. Pt is sitting up in bed in no distress on room air. Pt is A/Ox4 and answers all questions appropriately. Care providers, pharmacy,?and demographics verified. ? Presentation: Pt called EMS for feeling dizzy and per EMS pt with hypotension, lexy during transport Admitting dx: Septic shock, bowel obstruction PCP: Juan Diego Specialists: None Preferred Pharmacy: [facility] Insurance: [facility] Prescription Benefit:?AnthR Living Will/HPOA: Pt has LW/HPOA and is aware that they are not on file at [facility]. Pt states his , Ankita Espinoza, is HPOA. LNOK: Ankita Espinoza, /HPOA Living Arrangements: Pt lives with in 1 story home with no steps and states no concerns at home. Pt is independent with ADL's. Transportation: Pt drives self and states no transportation concerns. DME/HHC: Pt has grab bars and states no need for any further DME. Pt states no hx of HHC or SNF in the past. Pt states no concerns with going home at time of discharge. Pt is retired. Pt states does not smoke cigarettes or drink ETOH. Pt states no further concerns/needs. CM to follow for any further discharge planning/needs. Advised pt to ask for CM if any further questions/concerns/needs arise, voices understanding. Pt goal: Home ? Plan: Home [place] RN ORALIA ?
[2022-01-19 13:43] LABS: Pathologist Review Reviewed
--- NOTE | 2022-01-19 14:06 | PN.HOSP_ITS ---
Subjective Subjective Follow-up for small bowel obstruction. Patient is passing flatus but has not moved bowel yet. Heart rate is controlled 72/min, afebrile afebrile. Objective Data Objective Data Vital Signs: Vital Signs Temp Pulse Resp BP Pulse Ox O2 Del Method 98.0 F 72 16 133/95 H 98 Room Air 01/19/22 11:00 01/19/22 11:00 01/19/22 11:00 01/19/22 11:00 01/19/22 11:00 01/19/22 13:56 Oxygen Delivery Method Room Air Weight: 193 lb 12.581 oz Body Mass Index (BMI) 26.3 Intake & Output: Intake and Output for Last 24 Hours 01/17/22 01/18/22 01/19/22 23:59 23:59 23:59 Intake Total 3886.97 / 3886.97 3396.51 / 5496.51 6597.19 / 6597.19 Output Total 4385 / 4385 2550 / 2800 450 / 450 Balance -498.03 / -498.03 846.51 / 2696.51 6147.19 / 6147.19 Lab / Micro Data Result Diagrams: 01/19/22 05:40 01/19/22 05:40 Labs: Laboratory Results - last 24 hr 01/16/22 07:07: Diff Path Review Reviewed 01/19/22 05:40: WBC 7.3, RBC 2.94 L, Hgb 9.0 L, Hct 27.4 L, MCV 93.2, MCH 30.6, MCHC 32.8, RDW Std Deviation 45.8 H, RDW Coeff of Anatoly 13.4, Plt Count 141 L, MPV 10.4, Immature Gran % (Auto) 0.700, Neut % (Auto) 62.2, Lymph % (Auto) 22.5, [place] % (Auto) 13.6 H, Eos % (Auto) 1.0, Baso % (Auto) 0.0, Absolute Neuts (auto) 4.6, Absolute Lymphs (auto) 1.64, Nucleated RBC % 0 01/19/22 05:40: Sodium 141, Potassium 3.3 L, Chloride 107, Carbon Dioxide 28.0, Anion Gap 6, BUN 16, Creatinine 1.07, Estim Creat Clear Calc 51.17, Est GFR (MDRD) Af Amer 84, Est GFR (MDRD) Non-Af 70, BUN/Creatinine Ratio 15.0, Glucose 111 H, Calcium 7.6 L, Phosphorus 1.4 L, Magnesium 1.9, Total Bilirubin 0.70, AST 16, ALT 13 L, Alkaline Phosphatase 36 L, Total Protein 5.5 L, Albumin 2.2 L, Globulin 3.3, Albumin/Globulin Ratio 0.7 L Micro: Microbiology 01/16/22 17:50 Urine Catheter - Dumont Urine Culture - Final Culture exhibits no growth. 01/16/22 08:14 Blood Culture (Wb) - Anticubital Right Blood Culture - Preliminary No growth in 48 hours. 01/16/22 08:12 Blood Culture (Wb) - Anticubital Left Blood Culture - Preliminary No growth in 48 hours. 01/16/22 15:00 Gastric Fluid/Contents Gastric Occult Blood - Final Occult Blood Positive Radiography Diagnostic Testing: Radiology Impression Echocardiogram 01/19/22 09:10 Interpretation Summary Normal LV size. Left ventricular systolic function is normal. The estimated ejection fraction is 55 %. Mild (1+) eccentric aortic valve insufficiency. Mild (1+) eccentric mitral valve insufficiency. Mildly dilated aortic root. Pulmonary artery systolic pressure is 46 mmHg. The left atrium is moderately enlarged. The right atrium is mildly enlarged. Ordering Physician: Mandeep Jung Performed By: Betty Landa RCS Rhythm Strip Rhythm Strip: A-fib Physical Exam Narrative General: Alert, Oriented x3, Cooperative HEENT: NGT removed. Atraumatic, PERRLA, EOMI, Normocephalic Oral: Oral mucosa moist No Gingival or Mucosal Lesions/ Ulcerations Neck: Supple, No JVD, Negative Carotid Bruits Lungs: Air entry diminished in bilateral lung bases. No crepitation/rhonchi Cardiovascular: A. fib, heart rate controlled, Normal S1, Normal S2, No murmurs Abdomen: Bowel sounds improved surgical scar in midline. Soft, nontender, nondistended. : No renal angle tenderness. No suprapubic tenderness. Extremities: No edema, Capillary Refill Less than 3 Seconds Skin: No rashes, No breakdown Musculoskeletal: No Tenderness to Palpation of Joints or Extremities. Muscle strength 4+/5 at major joints. Neurological: Cranial nerves II-XII grossly intact, DTR 2+/4 Psych/Mental Status: Normal Affect, Appropriate Const Constitutional Narrative: . Assessment & Plan Assessment/Plan (1) Acute hypotension: (2) Acute renal failure: PLAN: Plan 1. Shock, unclear etiology, most probably due to hypovolemia due to GI losses but possibility of translocation of bacteria from small bowel obstruction), and medication side-effect (continued use of Lasix and lisinopril). Patient did not require pressors. Hypotension was responsive to fluid. Has left arm PICC line. On IV Cipro and Flagyl. Blood culture negative for more than 48 hours. Urine culture no growth. Patient initially presented to the ED hypotensive but fluid responsive Did not require pressors overnight s/p left PICC line (01/16/22) Continue on IV Flagyl and Cipro-allergy to penicillin Continue IV fluids, IV antibiotics as above DC Hydrocortisone -started for probable septic shock. Supervisor [employer] consulted. 2. A fib with RVR, patient with underlying history of A. fib/Graves disease: Heart rate is not optimally controlled, still in 100s. Patient on IV amiodarone, Eliquis on hold. Discussed with feed mill operator, if heart rate goes more than 120, will start IV Cardizem drip. 01/19: Flavoring Oil Filterer follow-up note reviewed. On amiodarone 200 mg twice daily and metoprolol 50 mg twice daily. Eliquis later today. 2D echo EF 55%, LV systolic function normal. Mild MR, AR. PASP 46 mmHg. Left atrium markedly enlarged. Overall consistent with chronic HFpEF 3. ARIN, likely pre-renal due to hypovolemia with chronic Lasix and lisinopril: Previous baseline creatinine was 0.54, admitted creatinine of 3.04, creatine today is 1.26. BUN 32, anion gap 3. Lasix and lisinopril held 01/19: BUN 16 creatinine 1.07. ARIN resolved. 4. Acute small bowel obstruction likely secondary to adhesions, seen on CT of the abdomen and pelvis H/o exploratory laparotomy with lysis of adhesions in 2017. 01/18: Discussed with Dr. Cardenas. Patient passed a small flatus. Abdominal x- ray ordered. If abdominal x-ray shows dissolution of obstruction plan for NG tube removal and starting on clear liquid. Continue IV antibiotics. 01/19: Abdominal x-ray initially reviewed shows nonspecific bowel gas pattern in left upper quadrant. Serum magnesium 1.9, phosphorus 1.4, potassium 3.3 hypokalemia and hypophosphatemia. IV K-Phos getting replaced. 5. GI bleed, with coffee ground emesis in NG tube in the setting of recent Eliquis use Drop in hemoglobin from 14.4-10.2 this morning is likely from hemodilution: Hemoglobin is a stable, 10.4. Continue monitoring hemoglobin Continue on IV PPI BID. Stool for occult blood positive 6. Lactic acidosis likely secondary to #1 and #4, resolved with IV fluids Admitting lactic acid level is 9.7 7. Graves disease/hyperthyroidism, now with sick euthyroid state Will need to recheck TSH and Free T4/free T3 later 8. DVT PPx-SCDs 9. Code status - Full code Microbiology Past 72 Hours 01/16/22 17:50 Urine Catheter - Dumont Urine Culture - Final Culture exhibits no growth. 01/16/22 08:14 Blood Culture (Wb) - Anticubital Right Blood Culture - Preliminary No growth in 48 hours. 01/16/22 08:12 Blood Culture (Wb) - Anticubital Left Blood Culture - Preliminary No growth in 48 hours. 01/16/22 15:00 Gastric Fluid/Contents Gastric Occult Blood - Final Occult Blood Positive Laboratory Results 01/16/22 07:07: Diff Path Review Reviewed 01/19/22 05:40: WBC 7.3, RBC 2.94 L, Hgb 9.0 L, Hct 27.4 L, MCV 93.2, MCH 30.6, MCHC 32.8, RDW Std Deviation 45.8 H, RDW Coeff of Anatoly 13.4, Plt Count 141 L, MPV 10.4, Immature Gran % (Auto) 0.700, Neut % (Auto) 62.2, Lymph % (Auto) 22.5, [place] % (Auto) 13.6 H, Eos % (Auto) 1.0, Baso % (Auto) 0.0, Absolute Neuts (auto) 4.6, Absolute Lymphs (auto) 1.64, Nucleated RBC % 0 01/19/22 05:40: Sodium 141, Potassium 3.3 L, Chloride 107, Carbon Dioxide 28.0, Anion Gap 6, BUN 16, Creatinine 1.07, Estim Creat Clear Calc 51.17, Est GFR (MDRD) Af Amer 84, Est GFR (MDRD) Non-Af 70, BUN/Creatinine Ratio 15.0, Glucose 111 H, Calcium 7.6 L, Phosphorus 1.4 L, Magnesium 1.9, Total Bilirubin 0.70, AST 16, ALT 13 L, Alkaline Phosphatase 36 L, Total Protein 5.5 L, Albumin 2.2 L, Globulin 3.3, Albumin/Globulin Ratio 0.7 L Charges/Coding Visit Charges Inpatient E&M: 12360 Subs Hosp L2
[2022-01-19] MEDS: Lactulose 20 GM/30 ML UDC PO (21:06)
[2022-01-20] VITALS (9 sets, daily range): BP systolic 104–125; BP diastolic 60–88; PULSE 67–98; RESP 18; TEMP 36.4–37; O2SAT 97–100
[2022-01-20] MEDS: LORazepam 2 MG/ML Syringe 1 MG IV (02:58)
[2022-01-20] MEDS: 0.9% Saline Lock 10 ML Syringe IV ×3 (05:25→14:26)
[2022-01-20] MEDS: metroNIDAZOLE 500 MG/100 ML BAG 100 MG IV ×2 (05:26→13:12)
[2022-01-20 05:41] LABS: Absolute Lymphocyte Count 1.64 X10^3/uL (0.83-4.51); Absolute Neutrophil Count 5.3 X10^3/uL (2.0-7.7); Basophil# 0.01 X10^3/uL; Basophil% 0.1 % (0-1); Eosinophil# 0.07 X10^3/uL; Eosinophils% 0.9 % (0-5); Hematocrit 26.7 % (40-54); Hemoglobin 8.9 g/dL (13.0-16.5); Lymphocyte # 1.64 X10^3/ul (0.83-4.51); Mean Corp Hgb Conc 33.3 g/dL (32-36); Mean Corpuscular Hgb 30.5 pg (27.0-32.0); Mean Corpuscular Volume 91.4 fL (80-94); Mean Platelet Vol. 10.5 fl (6.2-12.0); Monocyte# 1.06 X10^3/uL; NRBC Flagged by Analyzer 0 % (0-5); Neutrophil # 5.33 X10^3/uL (2.7-7.7); Neutrophil % 65.1 % (47-70); Platelet Count 147 K/mm3 (150-450); RBC Distribution Width CV 13.2 % (11.6-14.6); RBC Distribution Width SD 43.7 fl (35.1-43.9); Red Blood Count 2.92 M/mm3 (4.6-6.2); White Blood Count 8.2 K/mm3 (4.4-11.0)
[2022-01-20 05:58] LABS: ALB/GLOB Ratio 0.7 RATIO (0.9-2.4); AST(SGOT) 16 U/L (15-37); Alanine Aminotransfer ALT/SGPT 14 U/L (16-61); Albumin, Serum 2.3 g/dL (3.2-5.0); Alkaline Phosphatase 51 U/L (45-117); Anion Gap 6 (5-15); BUN 11 mg/dL (7-18); BUN/Creat Ratio 10.8 RATIO (10-20); Calcium,Total 7.3 mg/dL (8.5-10.1); Chloride 105 mmol/L (98-107); Creatinine, Serum 1.02 mg/dL (0.70-1.30); EST Glomerular Filtration Rate 74 mL/min (>60); Est Glom Filt Rate - Afr Amer 89 mL/min (>60); Estimated Creatinine Clearance 53.68 ml/min; Globulin 3.4 g/dL (2.2-4.2); Glucose 288 mg/dL (74-106); Potassium 4.7 mmol/L (3.5-5.1); Protein, Total 5.7 g/dL (6.4-8.2); Sodium Level 136 mmol/L (136-145)
--- NOTE | 2022-01-20 07:00 | NURSING ---
This RN, cheko Martinez, fitness floor attendant's and security operations analyst took turns sitting with patient d/t agitation, paranoia and confusion overnight starting at approximately 0100 this am. Pt would not follow directions and was making attempts to get out of bed, very unsteady on feet and weak. Voicemail left for pt's per his request in attempt to help re-orient pt as he was highly concerned that his was upset with him and that he needed to get home or back to hospital. Sitter requested for day shift. aware.
--- NOTE | 2022-01-20 09:45 | DCINST_ITS ---
Discharge Instructions Diet Discharge Diet: Light diet - advance as tolerated (Soft diet, low fatty/oral content for 3 days.) Activity Discharge Activity: May Not Drive Dressing / Incision Call your doctor if you observe: Fever of 101 or Higher, Coldness, Increased Pain, Numbness or Tingling, Change in Color, Inability to urinate, Inability to have a bowel movement, Shortness of breath, Dizziness, Fainting spells, Swelling in the ankles, Chest pain, Prolonged hiccupping, Increased palpitations (irregular heartbeat), Calf discomfort and Uncontrolled pain Follow Up Care Test Results: Test results from this visit will be discussed in further detail at your follow- up appointment, if applicable. Discharge Plan Admission Admit Date/Time: 01/16/22 09:17 Primary Reason for Your Visit: Small bowel obstruction Attending Provider: Jose Combs Primary Care Provider: Dayron Adamson Consulting Providers: Andi Meyers ; Luis Cardenas ; Ronald Diego ; Jayy Harrington ; Dino Thomson ; Bharti Tracey NP ; Sydney Concepcion Discharge Orders/Prescriptions Prescriptions: New lactulose 20 gram/30 mL Solution 20 g PO BID PRN (Reason: constipation) Qty: 1200 0RF ciprofloxacin HCl [Cipro] 500 mg tablet 500 mg PO BID Qty: 5 0RF metronidazole 500 mg tablet 500 mg PO Q8H 2 Days Qty: 6 0RF pantoprazole [Protonix] 40 mg tablet,delayed release (DR/EC) 40 mg PO DAILY Qty: 30 1RF Continued acetaminophen 325 MG tablet 650 mg PO Q6H PRN PRN (Reason: Fever) 0RF methimazole 5 mg tablet 15 mg PO DAILY Label Comments: TAKE 3 TABLETS BY MOUTH ONCE DAILY metoprolol tartrate 50 mg tablet 50 mg PO BID Qty: 180 3RF Rx Instructions: Hold for heart less than 60 or systolic blood pressure less than 100 mmHg. apixaban 5 mg tablet 5 mg PO BID Qty: 180 3RF Rx Instructions: Hold if platelet count drops less than 50,000 or hemoglobin less than 8 g% furosemide [Lasix] 40 mg tablet 40 mg PO DAILY Qty: 90 3RF lisinopril 5 mg tablet 5 mg PO DAILY Qty: 90 3RF Referrals / Follow Up: Luis Cardenas MD [Med Staff - Active Staff] - Within 2 Weeks (FOR small bowel obstruction.) Dayron Adamson MD [Primary Care Provider] - Mandeep Jung MD [Med Staff - Active Staff] - Within 1 Month (FOR Afib) Disposition Disposition (needs filled in before D/C Order can be placed): Home, Self Care
[2022-01-20] MEDS: Ciprofloxacin 200 MG/100 ML BAG 100 MG IV (09:57)
--- NOTE | 2022-01-20 11:45 | NURSING ---
Daughter phoned in and is flying from [place] today in order to help with care.
--- NOTE | 2022-01-20 12:44 | NURSING ---
Sitter removed from room. at bedside. Patient calm and cooperative.
--- NOTE | 2022-01-20 12:51 | DS.PCM_ITS ---
Providers Date of Admission: 01/16/22 Date of Discharge: 01/20/22 Primary Care Physician: Dr. Dayron Adamson MD Consultations 01/16/22 11:36 Consult: General Surgery Routine Consulting Provider: Luis Cardenas Reason for Consult: Bowel obstruction EMERGENT Consult: No Notified: Yes Date Notified: 01/16/22 Time Notified: 09:33 Method of Notification: Notified in ED Consult: Knowledge Analyst / Pulmonary Medicine Routine Consulting Provider: Pulmonary Medicine [facility] Reason for Consult: Severe sepsis EMERGENT Consult: No Notified: Yes Date Notified: 01/16/22 Time Notified: 09:33 Method of Notification: Text 01/17/22 09:40 Consult: Cardiology Routine Consulting Provider: Andi Meyers Reason for Consult: A. fib with RVR EMERGENT Consult: No Notified: Yes Date Notified: 01/17/22 Time Notified: 09:40 Method of Notification: Text Reason For Visit: SEPTIC SHOCK Diagnosis Discharge Diagnosis (1) Acute hypotension: Status: Acute Code(s): I95.9 - Hypotension, unspecified (2) Acute renal failure: Status: Acute Code(s): N17.9 - Acute kidney failure, unspecified Plan 1. Shock, unclear etiology, most probably due to hypovolemia due to GI losses but possibility of translocation of bacteria from small bowel obstruction), and medication side-effect (continued use of Lasix and lisinopril). Patient did not require pressors. Hypotension was responsive to fluid. Has left arm PICC line. On IV Cipro and Flagyl. Blood culture negative for more than 48 hours. Urine culture no growth. Patient initially presented to the ED hypotensive but fluid responsive Did not require pressors overnight s/p left PICC line (01/16/22) Continue on IV Flagyl and Cipro-allergy to penicillin Continue IV fluids, IV antibiotics as above DC Hydrocortisone -started for probable septic shock. Knowledge Analyst consulted. 2. A fib with RVR, patient with underlying history of A. fib/Graves disease: Heart rate is not optimally controlled, still in 100s. Patient on IV amiodarone, Eliquis on hold. Discussed with procurement specialist, if heart rate goes more than 120, will start IV Cardizem drip. 01/19: Hotel Manager follow-up note reviewed. On amiodarone 200 mg twice daily and metoprolol 50 mg twice daily. Eliquis later today. 2D echo EF 55%, LV systolic function normal. Mild MR, AR. PASP 46 mmHg. Left atrium markedly enlarged. Overall consistent with chronic HFpEF 3. ARIN, likely pre-renal due to hypovolemia with chronic Lasix and lisinopril: Previous baseline creatinine was 0.54, admitted creatinine of 3.04, creatine today is 1.26. BUN 32, anion gap 3. Lasix and lisinopril held 01/19: BUN 16 creatinine 1.07. ARIN resolved. 4. Acute small bowel obstruction likely secondary to adhesions, seen on CT of the abdomen and pelvis H/o exploratory laparotomy with lysis of adhesions in 2017. 01/18: Discussed with Dr. Cardenas. Patient passed a small flatus. Abdominal x- ray ordered. If abdominal x-ray shows dissolution of obstruction plan for NG tube removal and starting on clear liquid. Continue IV antibiotics. 01/19: Abdominal x-ray initially reviewed shows nonspecific bowel gas pattern in left upper quadrant. Serum magnesium 1.9, phosphorus 1.4, potassium 3.3 hypokalemia and hypophosphatemia. IV K-Phos getting replaced. 5. GI bleed, with coffee ground emesis in NG tube in the setting of recent Eliquis use Drop in hemoglobin from 14.4-10.2 this morning is likely from hemodilution: Hemoglobin is a stable, 10.4. Continue monitoring hemoglobin Continue on IV PPI BID. Stool for occult blood positive 6. Lactic acidosis likely secondary to #1 and #4, resolved with IV fluids Admitting lactic acid level is 9.7 7. Graves disease/hyperthyroidism, now with sick euthyroid state Will need to recheck TSH and Free T4/free T3 later 8. DVT PPx-SCDs 9. Code status - Full code Microbiology Past 72 Hours 01/16/22 17:50 Urine Catheter - Dumont Urine Culture - Final Culture exhibits no growth. 01/16/22 08:14 Blood Culture (Wb) - Anticubital Right Blood Culture - Preliminary No growth in 48 hours. 01/16/22 08:12 Blood Culture (Wb) - Anticubital Left Blood Culture - Preliminary No growth in 48 hours. 01/16/22 15:00 Gastric Fluid/Contents Gastric Occult Blood - Final Occult Blood Positive Laboratory Results 01/16/22 07:07: Diff Path Review Reviewed 01/19/22 05:40: WBC 7.3, RBC 2.94 L, Hgb 9.0 L, Hct 27.4 L, MCV 93.2, MCH 30.6, MCHC 32.8, RDW Std Deviation 45.8 H, RDW Coeff of Anatoly 13.4, Plt Count 141 L, MPV 10.4, Immature Gran % (Auto) 0.700, Neut % (Auto) 62.2, Lymph % (Auto) 22.5, [place] % (Auto) 13.6 H, Eos % (Auto) 1.0, Baso % (Auto) 0.0, Absolute Neuts (auto) 4.6, Absolute Lymphs (auto) 1.64, Nucleated RBC % 0 01/19/22 05:40: Sodium 141, Potassium 3.3 L, Chloride 107, Carbon Dioxide 28.0, Anion Gap 6, BUN 16, Creatinine 1.07, Estim Creat Clear Calc 51.17, Est GFR (MDRD) Af Amer 84, Est GFR (MDRD) Non-Af 70, BUN/Creatinine Ratio 15.0, Glucose 111 H, Calcium 7.6 L, Phosphorus 1.4 L, Magnesium 1.9, Total Bilirubin 0.70, AST 16, ALT 13 L, Alkaline Phosphatase 36 L, Total Protein 5.5 L, Albumin 2.2 L, Globulin 3.3, Albumin/Globulin Ratio 0.7 L Medications at Discharge Home Medications acetaminophen 325 mg tablet 650 mg PO Q6H PRN PRN Fever 12/21/16 furosemide 40 mg tablet (Lasix) 40 mg PO DAILY #90 tabs 02/16/21 lisinopril 5 mg tablet 5 mg PO DAILY #90 tabs 02/17/21 methimazole 5 mg tablet 15 mg PO DAILY hyperthyroidism 01/16/22 amiodarone 200 mg tablet 200 mg PO BID #60 tabs 01/20/22 apixaban 5 mg tablet 5 mg PO BID #180 tabs 01/20/22 ciprofloxacin HCl 500 mg tablet (Cipro) 500 mg PO BID #5 tabs 01/20/22 lactulose 20 gram/30 mL oral solution 20 g (30 mL) PO BID PRN constipation #1,200 mL 01/20/22 metoprolol tartrate 50 mg tablet 50 mg PO BID #180 tabs 01/20/22 metronidazole 500 mg tablet 500 mg PO Q8H 2 days #6 tabs 01/20/22 pantoprazole 40 mg tablet,delayed release (Protonix) 40 mg PO DAILY #30 tabs 01/20/22 tamsulosin 0.4 mg capsule 0.4 mg PO DAILY@1730 #30 caps 01/20/22 Weight / BMI Weight Weight: 190 lb 0.615 oz Body Mass Index (BMI) 26.3 ABG / Lab / Microbiology Data Result Diagrams: 01/21/22 05:40 01/21/22 05:40 Laboratory: Laboratory Results - last 24 hr 01/16/22 07:07: Diff Path Review Reviewed 01/20/22 05:20: WBC 8.2, RBC 2.92 L, Hgb 8.9 L, Hct 26.7 L, MCV 91.4, MCH 30.5, MCHC 33.3, RDW Std Deviation 43.7, RDW Coeff of Anatoly 13.2, Plt Count 147 L, MPV 10.5, Immature Gran % (Auto) 0.900, Neut % (Auto) 65.1, Lymph % (Auto) 20.0, [place] % (Auto) 13.0 H, Eos % (Auto) 0.9, Baso % (Auto) 0.1, Absolute Neuts (auto) 5.3, Absolute Lymphs (auto) 1.64, Nucleated RBC % 0 01/20/22 05:20: Sodium 136, Potassium 4.7, Chloride 105, Carbon Dioxide 25.0, Anion Gap 6, BUN 11, Creatinine 1.02, Estim Creat Clear Calc 53.68, Est GFR (MDRD) Af Amer 89, Est GFR (MDRD) Non-Af 74, BUN/Creatinine Ratio 10.8, Glucose 288 H, Calcium 7.3 L, Total Bilirubin 0.70, AST 16, ALT 14 L, Alkaline Phosphatase 51, Total Protein 5.7 L, Albumin 2.3 L, Globulin 3.4, Album in/Globulin Ratio 0.7 L Microbiology: Microbiology 01/16/22 17:50 Urine Catheter - Dumont Urine Culture - Final Culture exhibits no growth. 01/16/22 08:14 Blood Culture (Wb) - Anticubital Right Blood Culture - Preliminary No growth in 48 hours. 01/16/22 08:12 Blood Culture (Wb) - Anticubital Left Blood Culture - Preliminary No growth in 48 hours. 01/16/22 15:00 Gastric Fluid/Contents Gastric Occult Blood - Final Occult Blood Positive D/C Instructions Discharge Diet: Light diet - advance as tolerated (Soft diet, low fatty/oral content for 3 days.) Call your doctor if you observe: Fever of 101 or Higher, Coldness, Increased Pain, Numbness or Tingling, Change in Color, Inability to urinate, Inability to have a bowel movement, Shortness of breath, Dizziness, Fainting spells, Swelling in the ankles, Chest pain, Prolonged hiccupping, Increased palpitations (irregular heartbeat), Calf discomfort and Uncontrolled pain Discharge Plan Admission Admit Date/Time: 01/16/22 09:17 Primary Reason for Your Visit: Small bowel obstruction Attending Provider: Jose Combs Primary Care Provider: Dayron Adamson Consulting Providers: Andi Meyers ; Luis Cardenas ; Ronald Diego ; Jayy Harrington ; Dino Thomson ; Bharti Tracey FISHERIES MANAGEMENT BIOLOGIST ; Sydney Concepcion Discharge Orders/Prescriptions Prescriptions: New lactulose 20 gram/30 mL Solution 20 g PO BID PRN (Reason: constipation) Qty: 1200 0RF ciprofloxacin HCl [Cipro] 500 mg tablet 500 mg PO BID Qty: 5 0RF metronidazole 500 mg tablet 500 mg PO Q8H 2 Days Qty: 6 0RF pantoprazole [Protonix] 40 mg tablet,delayed release (DR/EC) 40 mg PO DAILY Qty: 30 1RF tamsulosin 0.4 mg Capsule 0.4 mg PO DAILY@1730 Qty: 30 0RF amiodarone 200 mg tablet 200 mg PO BID Qty: 60 0RF Rx Instructions: 200 mg 2 times daily for 7 days, last on 01/27/2022 and then 200 mg once daily to continue Continued acetaminophen 325 MG tablet 650 mg PO Q6H PRN PRN (Reason: Fever) 0RF methimazole 5 mg tablet 15 mg PO DAILY Label Comments: TAKE 3 TABLETS BY MOUTH ONCE DAILY metoprolol tartrate 50 mg tablet 50 mg PO BID Qty: 180 3RF Rx Instructions: Hold for heart less than 60 or systolic blood pressure less than 100 mmHg. apixaban 5 mg tablet 5 mg PO BID Qty: 180 3RF Rx Instructions: Hold if platelet count drops less than 50,000 or hemoglobin less than 8 g% furosemide [Lasix] 40 mg tablet 40 mg PO DAILY Qty: 90 3RF lisinopril 5 mg tablet 5 mg PO DAILY Qty: 90 3RF Referrals / Follow Up: Mandeep Jung MD [Med Staff - Active Staff] - Within 1 Month (FOR Afib) Luis Cardenas MD [Med Staff - Active Staff] - Within 2 Weeks (FOR small bowel obstruction.) Dayron Adamson MD [Primary Care Provider] - Disposition Disposition (needs filled in before D/C Order can be placed): Home, Self Care Charges/Coding Visit Charges Inpatient E&M: 28520 Disch Hosp
[2022-01-20] MEDS: Metoprolol Tartrate 50 MG Tablet PO (12:54)
[2022-01-20] MEDS: Amiodarone 200 MG Tablet PO ×2 (12:54→20:47)
[2022-01-20] MEDS: Lactulose 20 GM/30 ML UDC PO ×2 (12:54→20:47)
--- NOTE | 2022-01-20 13:16 | CASEMGMT ---
Per nursing notes, pt was agitated overnight and confused. This RN CM to room to discuss discharge plan with pt/. Pt is pleasant and oriented at this time. declines need for any further therapy at home as her daughter is on the way from [place] to assist. is requesting that pt be discharged tomorrow so that daughter can get here and assist her with pt. Dr. Garret quezada. CM to follow for any further discharge planning/needs. SStanne marie RN CM
--- NOTE | 2022-01-20 13:32 | DS.PCM_ITS ---
Providers Date of Admission: 01/16/22 Primary Care Physician: Dr. Dayron Adamson MD Consultations 01/16/22 11:36 Consult: General Surgery Routine Consulting Provider: Luis Cardenas Reason for Consult: Bowel obstruction EMERGENT Consult: No MD Notified: Yes Date Notified: 01/16/22 Time Notified: 09:33 Method of Notification: Notified in ED Consult: Offender Employment Specialist / Pulmonary Medicine Routine Consulting Provider: Pulmonary Medicine [facility] Reason for Consult: Severe sepsis EMERGENT Consult: No Notified: Yes Date Notified: 01/16/22 Time Notified: 09:33 Method of Notification: Text 01/17/22 09:40 Consult: Cardiology Routine Consulting Provider: Andi Meyers Reason for Consult: A. fib with RVR EMERGENT Consult: No Notified: Yes Date Notified: 01/17/22 Time Notified: 09:40 Method of Notification: Text Reason For Visit: SEPTIC SHOCK Diagnosis Discharge Diagnosis (1) Acute hypotension: Status: Acute Code(s): I95.9 - Hypotension, unspecified (2) Acute renal failure: Status: Acute Code(s): N17.9 - Acute kidney failure, unspecified Plan 1. Shock, unclear etiology, most probably due to hypovolemia due to GI losses but possibility of translocation of bacteria from small bowel obstruction), and medication side-effect (continued use of Lasix and lisinopril). Patient did not require pressors. Hypotension was responsive to fluid. Has left arm PICC line. On IV Cipro and Flagyl. Blood culture negative for more than 48 hours. Urine culture no growth. Patient initially presented to the ED hypotensive but fluid responsive Did not require pressors overnight s/p left PICC line (01/16/22) Continue on IV Flagyl and Cipro-allergy to penicillin Continue IV fluids, IV antibiotics as above DC Hydrocortisone -started for probable septic shock. Offender Employment Specialist consulted. 2. A fib with RVR, patient with underlying history of A. fib/Graves disease: Heart rate is not optimally controlled, still in 100s. Patient on IV amiodarone, Eliquis on hold. Discussed with licensed weigher, if heart rate goes more than 120, will start IV Cardizem drip. 01/19: Food And Beverage Assistant Manager follow-up note reviewed. On amiodarone 200 mg twice daily and metoprolol 50 mg twice daily. Eliquis later today. 2D echo EF 55%, LV systolic function normal. Mild MR, AR. PASP 46 mmHg. Left atrium markedly enlarged. Overall consistent with chronic HFpEF 3. ARIN, likely pre-renal due to hypovolemia with chronic Lasix and lisinopril: Previous baseline creatinine was 0.54, admitted creatinine of 3.04, creatine today is 1.26. BUN 32, anion gap 3. Lasix and lisinopril held 01/19: BUN 16 creatinine 1.07. ARIN resolved. 4. Acute small bowel obstruction likely secondary to adhesions, seen on CT of the abdomen and pelvis H/o exploratory laparotomy with lysis of adhesions in 2017. 01/18: Discussed with Dr. Cardenas. Patient passed a small flatus. Abdominal x- ray ordered. If abdominal x-ray shows dissolution of obstruction plan for NG tube removal and starting on clear liquid. Continue IV antibiotics. 01/19: Abdominal x-ray initially reviewed shows nonspecific bowel gas pattern in left upper quadrant. Serum magnesium 1.9, phosphorus 1.4, potassium 3.3 hypokalemia and hypophosphatemia. IV K-Phos getting replaced. 5. GI bleed, with coffee ground emesis in NG tube in the setting of recent Eliquis use Drop in hemoglobin from 14.4-10.2 this morning is likely from hemodilution: Hemoglobin is a stable, 10.4. Continue monitoring hemoglobin Continue on IV PPI BID. Stool for occult blood positive 6. Lactic acidosis likely secondary to #1 and #4, resolved with IV fluids Admitting lactic acid level is 9.7 7. Graves disease/hyperthyroidism, now with sick euthyroid state Will need to recheck TSH and Free T4/free T3 later 8. DVT PPx-SCDs 9. Code status - Full code Microbiology Past 72 Hours 01/16/22 17:50 Urine Catheter - [place]ont Urine Culture - Final Culture exhibits no growth. 01/16/22 08:14 Blood Culture (Wb) - Anticubital Right Blood Culture - Preliminary No growth in 48 hours. 01/16/22 08:12 Blood Culture (Wb) - Anticubital Left Blood Culture - Preliminary No growth in 48 hours. 01/16/22 15:00 Gastric Fluid/Contents Gastric Occult Blood - Final Occult Blood Positive Laboratory Results 01/16/22 07:07: Diff Path Review Reviewed 01/19/22 05:40: WBC 7.3, RBC 2.94 L, Hgb 9.0 L, Hct 27.4 L, MCV 93.2, MCH 30.6, MCHC 32.8, RDW Std Deviation 45.8 H, RDW Coeff of Anatoly 13.4, Plt Count 141 L, MPV 10.4, Immature Gran % (Auto) 0.700, Neut % (Auto) 62.2, Lymph % (Auto) 22.5, [place] % (Auto) 13.6 H, Eos % (Auto) 1.0, Baso % (Auto) 0.0, Absolute Neuts (auto) 4.6, Absolute Lymphs (auto) 1.64, Nucleated RBC % 0 01/19/22 05:40: Sodium 141, Potassium 3.3 L, Chloride 107, Carbon Dioxide 28.0, Anion Gap 6, BUN 16, Creatinine 1.07, Estim Creat Clear Calc 51.17, Est GFR (MDRD) Af Amer 84, Est GFR (MDRD) Non-Af 70, BUN/Creatinine Ratio 15.0, Glucose 111 H, Calcium 7.6 L, Phosphorus 1.4 L, Magnesium 1.9, Total Bilirubin 0.70, AST 16, ALT 13 L, Alkaline Phosphatase 36 L, Total Protein 5.5 L, Albumin 2.2 L, Globulin 3.3, Albumin/Globulin Ratio 0.7 L Medications at Discharge Home Medications acetaminophen 325 mg tablet 650 mg PO Q6H PRN PRN Fever 12/21/16 furosemide 40 mg tablet (Lasix) 40 mg PO DAILY #90 tabs 02/16/21 lisinopril 5 mg tablet 5 mg PO DAILY #90 tabs 02/17/21 methimazole 5 mg tablet 15 mg PO DAILY hyperthyroidism 01/16/22 apixaban 5 mg tablet 5 mg PO BID #180 tabs 01/20/22 ciprofloxacin HCl 500 mg tablet (Cipro) 500 mg PO BID #5 tabs 01/20/22 lactulose 20 gram/30 mL oral solution 20 g (30 mL) PO BID PRN constipation #1,200 mL 01/20/22 metoprolol tartrate 50 mg tablet 50 mg PO BID #180 tabs 01/20/22 metronidazole 500 mg tablet 500 mg PO Q8H 2 days #6 tabs 01/20/22 pantoprazole 40 mg tablet,delayed release (Protonix) 40 mg PO DAILY #30 tabs 01/20/22 Weight / BMI Weight Weight: 190 lb 0.615 oz Body Mass Index (BMI) 26.3 ABG / Lab / Microbiology Data Result Diagrams: 01/20/22 05:20 01/20/22 05:20 Laboratory: Laboratory Results - last 24 hr 01/16/22 07:07: Diff Path Review Reviewed 01/20/22 05:20: WBC 8.2, RBC 2.92 L, Hgb 8.9 L, Hct 26.7 L, MCV 91.4, MCH 30.5, MCHC 33.3, RDW Std Deviation 43.7, RDW Coeff of Anatoly 13.2, Plt Count 147 L, MPV 10.5, Immature Gran % (Auto) 0.900, Neut % (Auto) 65.1, Lymph % (Auto) 20.0, [place] % (Auto) 13.0 H, Eos % (Auto) 0.9, Baso % (Auto) 0.1, Absolute Neuts (auto) 5.3, Absolute Lymphs (auto) 1.64, Nucleated RBC % 0 01/20/22 05:20: Sodium 136, Potassium 4.7, Chloride 105, Carbon Dioxide 25.0, A nion Gap 6, BUN 11, Creatinine 1.02, Estim Creat Clear Calc 53.68, Est GFR (MDRD) Af Amer 89, Est GFR (MDRD) Non-Af 74, BUN/Creatinine Ratio 10.8, Glucose 288 H, Calcium 7.3 L, Total Bilirubin 0.70, AST 16, ALT 14 L, Alkaline Phosp hatase 51, Total Protein 5.7 L, Albumin 2.3 L, Globulin 3.4, Albumin/Globulin Ratio 0.7 L Microbiology: Microbiology 01/16/22 17:50 Urine Catheter - Dumont Urine Culture - Final Culture exhibits no growth. 01/16/22 08:14 Blood Culture (Wb) - Anticubital Right Blood Culture - Preliminary No growth in 48 hours. 01/16/22 08:12 Blood Culture (Wb) - Anticubital Left Blood Culture - Preliminary No growth in 48 hours. 01/16/22 15:00 Gastric Fluid/Contents Gastric Occult Blood - Final Occult Blood Positive D/C Instructions Discharge Diet: Light diet - advance as tolerated (Soft diet, low fatty/oral content for 3 days.) Call your doctor if you observe: Fever of 101 or Higher, Coldness, Increased Pain, Numbness or Tingling, Change in Color, Inability to urinate, Inability to have a bowel movement, Shortness of breath, Dizziness, Fainting spells, Swelling in the ankles, Chest pain, Prolonged hiccupping, Increased palpitations (irregular heartbeat), Calf discomfort and Uncontrolled pain Discharge Plan Admission Admit Date/Time: 01/16/22 09:17 Primary Reason for Your Visit: Small bowel obstruction Attending Provider: Jose Combs Primary Care Provider: Dayron Adamson Consulting Providers: Andi Meyers ; Luis Cardenas ; Ronald Diego ; Jayy Harrington ; Dino Thomson ; Bharti Tracey MARKETING UNDERWRITER ; Sydney Concepcion Discharge Orders/Prescriptions Prescriptions: New lactulose 20 gram/30 mL Solution 20 g PO BID PRN (Reason: constipation) Qty: 1200 0RF ciprofloxacin HCl [Cipro] 500 mg tablet 500 mg PO BID Qty: 5 0RF metronidazole 500 mg tablet 500 mg PO Q8H 2 Days Qty: 6 0RF pantoprazole [Protonix] 40 mg tablet,delayed release (DR/EC) 40 mg PO DAILY Qty: 30 1RF Continued acetaminophen 325 MG tablet 650 mg PO Q6H PRN PRN (Reason: Fever) 0RF methimazole 5 mg tablet 15 mg PO DAILY Label Comments: TAKE 3 TABLETS BY MOUTH ONCE DAILY metoprolol tartrate 50 mg tablet 50 mg PO BID Qty: 180 3RF Rx Instructions: Hold for heart less than 60 or systolic blood pressure less than 100 mmHg. apixaban 5 mg tablet 5 mg PO BID Qty: 180 3RF Rx Instructions: Hold if platelet count drops less than 50,000 or hemoglobin less than 8 g% furosemide [Lasix] 40 mg tablet 40 mg PO DAILY Qty: 90 3RF lisinopril 5 mg tablet 5 mg PO DAILY Qty: 90 3RF Referrals / Follow Up: Mandeep Jung MD [Med Staff - Active Staff] - Within 1 Month (FOR Afib) Luis Cardenas MD [Med Staff - Active Staff] - Within 2 Weeks (FOR small bowel obstruction.) Dayron Adamson MD [Primary Care Provider] - Disposition Disposition (needs filled in before D/C Order can be placed): Home, Self Care
--- NOTE | 2022-01-20 14:10 | PCM.PN.HOSP ---
Objective Data Objective Data Vital Signs: Vital Signs Temp Pulse Resp BP Pulse Ox O2 Del Method 98.4 F 67 18 125/88 H 100 Room Air 01/20/22 08:03 01/20/22 12:54 01/20/22 08:03 01/20/22 08:03 01/20/22 09:27 01/20/22 09:27 Oxygen Delivery Method Room Air Weight: 190 lb 0.615 oz Body Mass Index (BMI) 26.3 Intake & Output: Intake and Output for Last 24 Hours 01/18/22 01/19/22 01/20/22 23:59 23:59 23:59 Intake Total 3396.51 / 5496.51 9292.2733 / 9292.2733 685 / 685 Output Total 2550 / 2800 1350 / 1350 1300 / 1300 Balance 846.51 / 2696.51 7942.2733 / 7942.2733 -615 / -615 Lab / Micro Data Result Diagrams: 01/20/22 05:20 01/20/22 05:20 Labs: Laboratory Results - last 24 hr 01/20/22 05:20: WBC 8.2, RBC 2.92 L, Hgb 8.9 L, Hct 26.7 L, MCV 91.4, MCH 30.5, MCHC 33.3, RDW Std Deviation 43.7, RDW Coeff of Anatoly 13.2, Plt Count 147 L, MPV 10.5, Immature Gran % (Auto) 0.900, Neut % (Auto) 65.1, Lymph % (Auto) 20.0, [place] % (Auto) 13.0 H, Eos % (Auto) 0.9, Baso % (Auto) 0.1, Absolute Neuts (auto) 5.3, Absolute Lymphs (auto) 1.64, Nucleated RBC % 0 01/20/22 05:20: Sodium 136, Potassium 4.7, Chloride 105, Carbon Dioxide 25.0, Anion Gap 6, BUN 11, Creatinine 1.02, Estim Creat Clear Calc 53.68, Est GFR (MDRD) Af Amer 89, Est GFR (MDRD) Non-Af 74, BUN/Creatinine Ratio 10.8, Glucose 288 H, Calcium 7.3 L, Total Bilirubin 0.70, AST 16, ALT 14 L, Alkaline Phosphatase 51, Total Protein 5.7 L, Albumin 2.3 L, Globulin 3.4, Albumin/Globulin Ratio 0.7 L Micro: Microbiology 01/16/22 17:50 Urine Catheter - Dumont Urine Culture - Final Culture exhibits no growth. 01/16/22 08:14 Blood Culture (Wb) - Anticubital Right Blood Culture - Preliminary No growth in 48 hours. 01/16/22 08:12 Blood Culture (Wb) - Anticubital Left Blood Culture - Preliminary No growth in 48 hours. 01/16/22 15:00 Gastric Fluid/Contents Gastric Occult Blood - Final Occult Blood Positive Rhythm Strip Rhythm Strip: A-fib Physical Exam Narrative General: Confused, repeatedly behavior and speech echolalia. Disoriented. HEENT: NGT removed.? Atraumatic, PERRLA, EOMI, Normocephalic Oral: Oral mucosa? moist? No Gingival or Mucosal Lesions/ Ulcerations Neck: Supple, No JVD, Negative Carotid Bruits Lungs:? Air entry diminished in bilateral lung bases.? No crepitation/rhonchi Cardiovascular: A. fib, heart rate controlled, Normal S1, Normal S2, No murmurs Abdomen: Bowel sounds present all quadrants. Surgical scar in midline.? Soft, nontender, nondistended.? : Urine retention after removal. Dumont catheter was reinserted yesterday. Extremities: No edema, Capillary Refill Less than 3 Seconds Skin: No rashes, No breakdown Musculoskeletal: No Tenderness to Palpation of Joints or Extremities.? Muscle strength 4+/5 at major joints. Neurological: Cranial nerves II-XII grossly intact, DTR? 2+/4 Psych/Mental Status: Confused disoriented. Assessment & Plan Assessment/Plan (1) Acute hypotension: (2) Acute renal failure: PLAN: Plan 1. Shock, unclear etiology, most probably due to hypovolemia due to GI losses but possibility of translocation of bacteria from small bowel obstruction), and medication side-effect (continued use of Lasix and lisinopril). Patient did not require pressors.? Hypotension was responsive to fluid.? Has left arm PICC line.? On IV Cipro and Flagyl.? Blood culture negative for more than 48 hours.? Urine culture no growth. Patient initially presented to the ED hypotensive but fluid responsive Did not require pressors overnight s/p left PICC line (01/16/22) Continue on IV Flagyl and Cipro-allergy to penicillin Continue IV fluids, IV antibiotics as above DC Hydrocortisone -started for probable septic shock.? Wad Lubricator consulted. 01/20: Patient was also confused and disoriented.Had lorazepam 1 mg IV yesterday. Started on Seroquel 25 mg at night. Patient had urine retention and had to put Dumont catheter therefore started on Flomax. Plan for Dumont discontinuation and a spontaneous voiding tomorrow a.m at discharge. 2. A fib with RVR, patient with underlying history of A. fib/Graves disease: Heart rate is not optimally controlled, still in 100s.? Patient on IV amiodarone, Eliquis on hold.? Discussed with cooker helper, if heart rate goes more than 120, will start IV Cardizem drip. 01/19: Floor Installation Mechanic follow-up note reviewed.? On amiodarone 200 mg twice daily and metoprolol 50 mg twice daily.? Eliquis later today.? 2D echo EF 55%, LV systolic function normal.? Mild MR, AR.? PASP 46 mmHg.? Left atrium markedly enlarged.? Overall consistent with chronic HFpEF 01/20: We will discharge on amiodarone 200 mg twice daily and IV metoprolol 50 mg 3. ARIN, likely pre-renal due to hypovolemia with chronic? Lasix and lisinopril: Previous baseline creatinine was 0.54, admitted creatinine of 3.04, creatine today is 1.26.? BUN 32, anion gap 3. Lasix and lisinopril held 01/19: BUN 16 creatinine 1.07.? ARIN resolved. 4. Acute small bowel obstruction likely secondary to adhesions, seen on CT of the abdomen and pelvis H/o exploratory laparotomy with lysis of adhesions in 2017. 01/18: Discussed with Dr. Cardenas.? Patient passed a small flatus.? Abdominal x-ray ordered.? If abdominal x-ray shows dissolution of obstruction plan for NG tube removal and starting on clear liquid.? Continue IV antibiotics. 01/19: Abdominal x-ray initially reviewed shows nonspecific bowel gas pattern in left upper quadrant.? Serum magnesium 1.9, phosphorus 1.4, potassium 3.3 hypokalemia and hypophosphatemia.? IV K-Phos getting replaced. 9/7: Patient moved his bowel to 3 times yesterday. Started on soft diet. Protonix 40 mg oral twice daily 5. GI bleed, with coffee ground emesis in NG tube in the setting of recent Eliquis use Drop in hemoglobin from 14.4-10.2 this morning is likely from hemodilution: Hemoglobin is a stable, 10.4.? Continue monitoring hemoglobin Continue on IV PPI BID.? Stool for occult blood positive 01/20: Continue PPI 6. Lactic acidosis likely secondary to #1 and #4, resolved with IV fluids Admitting lactic acid level is 9.7 7. Graves disease/hyperthyroidism, now with sick euthyroid state 01/20 started back on methimazole 8. DVT PPx-SCDs 9. Code status - Full code Microbiology Past 72 Hours 01/16/22 17:50 Urine Catheter - Dumont Urine Culture - Final Culture exhibits no growth. 01/16/22 08:14 Blood Culture (Wb) - Anticubital Right Blood Culture - Preliminary No growth in 48 hours. 01/16/22 08:12 Blood Culture (Wb) - Anticubital Left Blood Culture - Preliminary No growth in 48 hours. Laboratory Results 01/20/22 05:20: WBC 8.2, RBC 2.92 L, Hgb 8.9 L, Hct 26.7 L, MCV 91.4, MCH 30.5, MCHC 33.3, RDW Std Deviation 43.7, RDW Coeff of Anatoly 13.2, Plt Count 147 L, MPV 10.5, Immature Gran % (Auto) 0.900, Neut % (Auto) 65.1, Lymph % (Auto) 20.0, [place] % (Auto) 13.0 H, Eos % (Auto) 0.9, Baso % (Auto) 0.1, Absolute Neuts (auto) 5.3, Absolute Lymphs (auto) 1.64, Nucleated RBC % 0 01/20/22 05:20: Sodium 136, Potassium 4.7, Chloride 105, Carbon Dioxide 25.0, Anion Gap 6, BUN 11, Creatinine 1.02, Estim Creat Clear Calc 53.68, Est GFR (MDRD) Af Amer 89, Est GFR (MDRD) Non-Af 74, BUN/Creatinine Ratio 10.8, Glucose 288 H, Calcium 7.3 L, Total Bilirubin 0.70, AST 16, ALT 14 L, Alkaline Phosphatase 51, Total Protein 5.7 L, Albumin 2.3 L, Globulin 3.4, Albumin/Globulin Ratio 0.7 L Charges/Coding Visit Charges Inpatient E&M: 48474 Subs Hosp L2
[2022-01-20] MEDS: Tamsulosin HCl 0.4 MG Capsule PO (15:28)
--- NOTE | 2022-01-20 15:38 | CASEMGMT ---
Patient has a Healthcare Power of Manager Truck and Healthcare Living Will. Patient and his are aware they are not on file and to bring in a copy if able. Lillian Ortega MANAGER RESPIRATORY BILLY
[2022-01-20] MEDS: QUEtiapine 25 MG Tablet PO (20:47)
[2022-01-20] MEDS: Ciprofloxacin 500 MG Tablet PO (20:48)
[2022-01-20] MEDS: metroNIDAZOLE 500 MG Tablet PO (20:48)
[2022-01-20] MEDS: Pantoprazole Sodium 40 MG Tablet PO (20:48)
[2022-01-21 05:57] VITALS: BP 108/61; PULSE 79; RESP 17; TEMP 36.7; O2SAT 100
[2022-01-21] MEDS: metroNIDAZOLE 500 MG Tablet PO ×2 (06:00→14:59)
[2022-01-21 06:22] LABS: Absolute Lymphocyte Count 2.07 X10^3/uL (0.83-4.51); Absolute Neutrophil Count 4.7 X10^3/uL (2.0-7.7); Basophil# 0.02 X10^3/uL; Basophil% 0.2 % (0-1); Eosinophil# 0.18 X10^3/uL; Eosinophils% 2.2 % (0-5); Hematocrit 27.2 % (40-54); Lymphocyte # 2.07 X10^3/ul (0.83-4.51); Lymphocyte % 25.6 % (19-41); Mean Corp Hgb Conc 33.1 g/dL (32-36); Mean Corpuscular Hgb 30.6 pg (27.0-32.0); Mean Corpuscular Volume 92.5 fL (80-94); Mean Platelet Vol. 10.3 fl (6.2-12.0); Monocyte# 1.05 X10^3/uL; NRBC Flagged by Analyzer 0 % (0-5); Neutrophil # 4.71 X10^3/uL (2.7-7.7); Neutrophil % 58.1 % (47-70); Platelet Count 141 K/mm3 (150-450); RBC Distribution Width CV 13.3 % (11.6-14.6); RBC Distribution Width SD 45.3 fl (35.1-43.9); Red Blood Count 2.94 M/mm3 (4.6-6.2); White Blood Count 8.1 K/mm3 (4.4-11.0)
[2022-01-21 06:54] LABS: ALB/GLOB Ratio 0.7 RATIO (0.9-2.4); AST(SGOT) 14 U/L (15-37); Alanine Aminotransfer ALT/SGPT 15 U/L (16-61); Albumin, Serum 2.3 g/dL (3.2-5.0); Alkaline Phosphatase 38 U/L (45-117); Anion Gap 5 (5-15); BUN 10 mg/dL (7-18); BUN/Creat Ratio 8.3 RATIO (10-20); Chloride 111 mmol/L (98-107); EST Glomerular Filtration Rate 61 mL/min (>60); Est Glom Filt Rate - Afr Amer 74 mL/min (>60); Estimated Creatinine Clearance 45.63 ml/min; Globulin 3.3 g/dL (2.2-4.2); Glucose 97 mg/dL (74-106); Potassium 3.7 mmol/L (3.5-5.1); Protein, Total 5.6 g/dL (6.4-8.2); Sodium Level 142 mmol/L (136-145)
[2022-01-21 08:14] VITALS: PULSE 101
[2022-01-21] MEDS: Amiodarone 200 MG Tablet PO (08:14)
[2022-01-21] MEDS: Ciprofloxacin 500 MG Tablet PO (08:14)
[2022-01-21] MEDS: Furosemide 40 MG Tablet PO (08:14)
[2022-01-21] MEDS: Pantoprazole Sodium 40 MG Tablet PO (08:14)
[2022-01-21] MEDS: Metoprolol Tartrate 50 MG Tablet PO (08:14)
[2022-01-21] MEDS: Lisinopril 5 MG Tablet PO (08:14)
[2022-01-21] MEDS: Lactulose 20 GM/30 ML UDC PO (08:14)
[2022-01-21] MEDS: Methimazole 5 MG Tablet 15 MG PO (08:14)
[2022-01-21 10:20] VITALS: BP 128/72; PULSE 101; RESP 20; TEMP 36.4; O2SAT 100
[2022-01-21 10:37] VITALS: O2SAT 95
--- NOTE | 2022-01-21 10:40 | DCINST_ITS ---
Discharge Instructions Diet Discharge Diet: Light diet - advance as tolerated (Soft diet, low fatty/oral content for 3 days.) Dressing / Incision Call your doctor if you observe: Fever of 101 or Higher, Coldness, Increased Pain, Numbness or Tingling, Change in Color, Inability to urinate, Inability to have a bowel movement, Shortness of breath, Dizziness, Fainting spells, Swelling in the ankles, Chest pain, Prolonged hiccupping, Increased palpitations (irregular heartbeat), Calf discomfort and Uncontrolled pain Follow Up Care Test Results: Test results from this visit will be discussed in further detail at your follow- up appointment, if applicable. Discharge Plan Admission Admit Date/Time: 01/16/22 09:17 Primary Reason for Your Visit: Small bowel obstruction Attending Provider: Jose Combs Primary Care Provider: Dayron Adamson Consulting Providers: Andi Meyers ; Luis Cardenas ; Ronald Diego ; Jayy Harrington ; Dino Thomson ; Bharti Tracey NP ; Sydney Concepcion Discharge Orders/Prescriptions Prescriptions: New lactulose 20 gram/30 mL Solution 20 g PO BID PRN (Reason: constipation) Qty: 1200 0RF ciprofloxacin HCl [Cipro] 500 mg tablet 500 mg PO BID Qty: 5 0RF metronidazole 500 mg tablet 500 mg PO Q8H 2 Days Qty: 6 0RF pantoprazole [Protonix] 40 mg tablet,delayed release (DR/EC) 40 mg PO DAILY Qty: 30 1RF tamsulosin 0.4 mg Capsule 0.4 mg PO DAILY@1730 Qty: 30 0RF amiodarone 200 mg tablet 200 mg PO BID Qty: 60 0RF Rx Instructions: 200 mg 2 times daily for 7 days, last on 01/27/2022 and then 200 mg once daily to continue Continued acetaminophen 325 MG tablet 650 mg PO Q6H PRN PRN (Reason: Fever) 0RF methimazole 5 mg tablet 15 mg PO DAILY Label Comments: TAKE 3 TABLETS BY MOUTH ONCE DAILY metoprolol tartrate 50 mg tablet 50 mg PO BID Qty: 180 3RF Rx Instructions: Hold for heart less than 60 or systolic blood pressure less than 100 mmHg. apixaban 5 mg tablet 5 mg PO BID Qty: 180 3RF Rx Instructions: Hold if platelet count drops less than 50,000 or hemoglobin less than 8 g% furosemide [Lasix] 40 mg tablet 40 mg PO DAILY Qty: 90 3RF lisinopril 5 mg tablet 5 mg PO DAILY Qty: 90 3RF Referrals / Follow Up: Mandeep Jung MD [Med Staff - Active Staff] - Within 1 Month (FOR Afib) Luis Cardenas MD [Med Staff - Active Staff] - Within 2 Weeks (FOR small bowel obstruction.) Dayron Adamson MD [Primary Care Provider] - Disposition Disposition (needs filled in before D/C Order can be placed): Home, Self Care
[2022-01-21] MEDS: Acetaminophen 325 MG Tablet 650 MG PO (10:41)
--- NOTE | 2022-01-21 11:48 | PHA.DC.MC ---
Pharmacy Service has performed discharge medication reconciliation and counseling for this patient. The patient was counseled on the following discharge medications and changes in medications for homegoing were reviewed. 1. AMIODARONE 2. ELIQUIS 3. CIPRO 4. FLAGYL 5. LACTULOSE 6. LOPRESSOR 7. PROTONIX 8. FLOMAX The Reason for Use, instructions for use, and potential side effects were reviewed for all new medications. The patient's questions regarding all of their medications were answered. The patient was able to verbally demonstrate an understanding of their discharge medications. Home Medications acetaminophen 325 mg tablet 650 mg PO Q6H PRN PRN Fever 12/21/16 furosemide 40 mg tablet (Lasix) 40 mg PO DAILY #90 tabs 02/16/21 lisinopril 5 mg tablet 5 mg PO DAILY #90 tabs 02/17/21 methimazole 5 mg tablet 15 mg PO DAILY hyperthyroidism 01/16/22 amiodarone 200 mg tablet 200 mg PO BID #60 tabs 01/20/22 apixaban 5 mg tablet 5 mg PO BID #180 tabs 01/20/22 ciprofloxacin HCl 500 mg tablet (Cipro) 500 mg PO BID #5 tabs 01/20/22 lactulose 20 gram/30 mL oral solution 20 g (30 mL) PO BID PRN constipation #1,200 mL 01/20/22 metoprolol tartrate 50 mg tablet 50 mg PO BID #180 tabs 01/20/22 metronidazole 500 mg tablet 500 mg PO Q8H 2 days #6 tabs 01/20/22 pantoprazole 40 mg tablet,delayed release (Protonix) 40 mg PO DAILY #30 tabs 01/20/22 tamsulosin 0.4 mg capsule 0.4 mg PO DAILY@1730 #30 caps 01/20/22 The patient's discharge medication list was reviewed for discrepancies and discrepancies were resolved.
--- NOTE | 2022-01-21 12:01 | CASEMGMT ---
Therapy is recommending a WW for pt at discharge and this JUVE CM to room to discuss with pt/. Pt/ decline need for further therapy at discharge, although pt is concerned about and her having to care for him. After given list of local DME companies, chooses [employer] and referral to [employer]. Call to [facility] to notify of WW, voices understanding. Pt/ voice no further questions/concerns/needs. [place] JUVE BARTON
[2022-01-21 12:26] VITALS: O2SAT 96
--- NOTE | 2022-01-21 15:28 | PCM.DC.SUM ---
Providers Date of Admission: 01/16/22 Date of Discharge: 01/21/22 Primary Care Physician: Dr. Dayron Adamson MD Consultations 01/16/22 11:36 Consult: General Surgery Routine Consulting Provider: Luis Cardenas Reason for Consult: Bowel obstruction EMERGENT Consult: No Notified: Yes Date Notified: 01/16/22 Time Notified: 09:33 Method of Notification: Notified in ED Consult: Building Construction Contractor / Pulmonary Medicine Routine Consulting Provider: Pulmonary Medicine [facility] Reason for Consult: Severe sepsis EMERGENT Consult: No Notified: Yes Date Notified: 01/16/22 Time Notified: 09:33 Method of Notification: Text 01/17/22 09:40 Consult: Cardiology Routine Consulting Provider: Andi Meyers Reason for Consult: A. fib with RVR EMERGENT Consult: No Notified: Yes Date Notified: 01/17/22 Time Notified: 09:40 Method of Notification: Text Reason For Visit: SEPTIC SHOCK Diagnosis Discharge Diagnosis (1) Acute hypotension: Status: Acute Code(s): I95.9 - Hypotension, unspecified (2) Acute renal failure: Status: Acute Code(s): N17.9 - Acute kidney failure, unspecified Medications at Discharge Home Medications acetaminophen 325 mg tablet 650 mg PO Q6H PRN PRN Fever 12/21/16 furosemide 40 mg tablet (Lasix) 40 mg PO DAILY #90 tabs 02/16/21 lisinopril 5 mg tablet 5 mg PO DAILY #90 tabs 02/17/21 methimazole 5 mg tablet 15 mg PO DAILY hyperthyroidism 01/16/22 amiodarone 200 mg tablet 200 mg PO BID #60 tabs 01/20/22 apixaban 5 mg tablet 5 mg PO BID #180 tabs 01/20/22 ciprofloxacin HCl 500 mg tablet (Cipro) 500 mg PO BID #5 tabs 01/20/22 lactulose 20 gram/30 mL oral solution 20 g (30 mL) PO BID PRN constipation #1,200 mL 01/20/22 metoprolol tartrate 50 mg tablet 50 mg PO BID #180 tabs 01/20/22 metronidazole 500 mg tablet 500 mg PO Q8H 2 days #6 tabs 01/20/22 pantoprazole 40 mg tablet,delayed release (Protonix) 40 mg PO DAILY #30 tabs 01/20/22 tamsulosin 0.4 mg capsule 0.4 mg PO DAILY@0620 #30 caps 01/20/22 Hospital Course Summary of Care Provided Hospital Course: This 86-year-old gentleman was admitted with vomiting, lightheadedness, dizziness, near fall for 2 days. He also did not had bowel movement for 2 days and had abdominal distention without abdominal pain. 1. Shock, unclear etiology, most probably due to hypovolemia due to GI losses but possibility of translocation of bacteria from small bowel obstruction), and medication side-effect (continued use of Lasix and lisinopril). Patient did not require pressors.? Hypotension was responsive to fluid.? Has left arm PICC line.? On IV Cipro and Flagyl.? Blood culture negative for more than 48 hours.? Urine culture no growth. Patient initially presented to the ED hypotensive but fluid responsive Did not require pressors overnight s/p left PICC line (01/16/22) Continue on IV Flagyl and Cipro-allergy to penicillin Continue IV fluids, IV antibiotics as above DC Hydrocortisone -started for probable septic shock.? Building Construction Contractor consulted. 01/20: Patient was also confused and disoriented.Had lorazepam 1 mg IV yesterday. Started on Seroquel 25 mg at night. Patient had urine retention and had to put Dumont catheter therefore started on Flomax. Plan for Dumont discontinuation and a spontaneous voiding tomorrow a.m at discharge. 01/21: Patient had Dumont catheter removed and is consciously voided the urine. Continue Flomax. 2. A fib with RVR, patient with underlying history of A. fib/Graves disease: Heart rate is not optimally controlled, still in 100s.? Patient on IV amiodarone, Eliquis on hold.? Discussed with remote sensing technologist, if heart rate goes more than 120, will start IV Cardizem drip. 01/19: Manager Of Production follow-up note reviewed.? On amiodarone 200 mg twice daily and metoprolol 50 mg twice daily.? Eliquis later today.? 2D echo EF 55%, LV systolic function normal.? Mild MR, AR.? PASP 46 mmHg.? Left atrium markedly enlarged.? Overall consistent with chronic HFpEF 01/20: We will discharge on amiodarone 200 mg twice daily and metoprolol 50 mg twice daily 3. ARIN, likely pre-renal due to hypovolemia with chronic? Lasix and lisinopril: Previous baseline creatinine was 0.54, admitted creatinine of 3.04, creatine today is 1.26.? BUN 32, anion gap 3. Lasix and lisinopril held 01/19: BUN 16 creatinine 1.07.? ARIN resolved. 4. Acute small bowel obstruction likely secondary to adhesions, seen on CT of the abdomen and pelvis H/o exploratory laparotomy with lysis of adhesions in 2017. 01/18: Discussed with Dr. Cardenas.? Patient passed a small flatus.? Abdominal x-ray ordered.? If abdominal x-ray shows dissolution of obstruction plan for NG tube removal and starting on clear liquid.? Continue IV antibiotics. 01/19: Abdominal x-ray initially reviewed shows nonspecific bowel gas pattern in left upper quadrant.? Serum magnesium 1.9, phosphorus 1.4, potassium 3.3 hypokalemia and hypophosphatemia.? IV K-Phos getting replaced. 01/20: Patient moved his bowel to 3 times yesterday. Started on soft diet. Protonix 40 mg oral twice daily 5. GI bleed, with coffee ground emesis in NG tube in the setting of recent Eliquis use Drop in hemoglobin from 14.4-10.2 this morning is likely from hemodilution: Hemoglobin is a stable, 10.4.? Continue monitoring hemoglobin Continue on IV PPI BID.? Stool for occult blood positive 01/20: Continue PPI 6. Lactic acidosis likely secondary to #1 and #4, resolved with IV fluids Admitting lactic acid level is 9.7 7. Graves disease/hyperthyroidism, now with sick euthyroid state 01/20 started back on methimazole 8. DVT PPx-SCDs 9. Code status - Full code Discharge medication reconciliation done. Discharge follow-up instructions completed. Discharge process discussed with the patient and all questions were answered to patient's satisfaction. Discharged home. Total time spent, exact 35 minutes on discharge meds reconciliation, examination, coordination of care with nurses and ancillary staff, review of imaging and blood test and discussion with the patient on follow-up instructions. Microbiology Past 72 Hours 01/16/22 08:12 Blood Culture (Wb) - Anticubital Left Blood Culture - Final No growth in 5 days. 01/16/22 08:14 Blood Culture (Wb) - Anticubital Right Blood Culture - Final No growth in 5 days. 01/16/22 17:50 Urine Catheter - Dumont Urine Culture - Final Culture exhibits no growth. Laboratory Results 01/21/22 05:40: WBC 8.1, RBC 2.94 L, Hgb 9.0 L, Hct 27.2 L, MCV 92.5, MCH 30.6, MCHC 33.1, RDW Std Deviation 45.3 H, RDW Coeff of Anatoly 13.3, Plt Count 141 L, MPV 10.3, Immature Gran % (Auto) 0.900, Neut % (Auto) 58.1, Lymph % (Auto) 25.6, [place] % (Auto) 13.0 H, Eos % (Auto) 2.2, Baso % (Auto) 0.2, Absolute Neuts (auto) 4.7, Absolute Lymphs (auto) 2.07, Nucleated RBC % 0 01/21/22 05:40: Sodium 142, Potassium 3.7, Chloride 111 H, Carbon Dioxide 26.0, Anion Gap 5, BUN 10, Creatinine 1.20, Estim Creat Clear Calc 45.63, Est GFR (MDRD) Af Amer 74, Est GFR (MDRD) Non-Af 61, BUN/Creatinine Ratio 8.3 L, Glucose 97, Calcium 8.0 L, Total Bilirubin 0.40, AST 14 L, ALT 15 L, Alkaline Phosphatase 38 L, Total Protein 5.6 L, Albumin 2.3 L, Globulin 3.3, Albumin/Globulin Ratio 0.7 L Physical Exam Narrative Seen and examined. Patient is tolerating solid diet. Had good bowel movement for last 2 days General: Alert, awake and oriented x3. HEENT: Atraumatic, PERRLA, EOMI, Normocephalic Oral: Oral mucosa? moist? No Gingival or Mucosal Lesions/ Ulcerations Neck: Supple, No JVD, Negative Carotid Bruits Lungs:? Air entry diminished in bilateral lung bases.? No crepitation/rhonchi Cardiovascular: A. fib, heart rate controlled, Normal S1, Normal S2, No murmurs Abdomen: Bowel sounds present all quadrants. Surgical scar in midline.? Soft, nontender, nondistended.? : Dumont catheter discontinued. Spontaneously voided the urine. Extremities: No edema, Capillary Refill Less than 3 Seconds Skin: No rashes, No breakdown Musculoskeletal: No Tenderness to Palpation of Joints or Extremities.? Muscle strength 4+/5 at major joints. Neurological: Cranial nerves II-XII grossly intact, DTR? 2+/4 Psych/Mental Status: Flat affect, dementia Weight / BMI Weight Weight: 191 lb 5.78 oz Body Mass Index (BMI) 26.3 ABG / Lab / Microbiology Data Result Diagrams: 01/21/22 05:40 01/21/22 05:40 Laboratory: Laboratory Results - last 24 hr 01/21/22 05:40: WBC 8.1, RBC 2.94 L, Hgb 9.0 L, Hct 27.2 L, MCV 92.5, MCH 30.6, MCHC 33.1, RDW Std Deviation 45.3 H, RDW Coeff of Anatoly 13.3, Plt Count 141 L, MPV 10.3, Immature Gran % (Auto) 0.900, Neut % (Auto) 58.1, Lymph % (Auto) 25.6, [place] % (Auto) 13.0 H, Eos % (Auto) 2.2, Baso % (Auto) 0.2, Absolute Neuts (auto) 4.7, Absolute Lymphs (auto) 2.07, Nucleated RBC % 0 01/21/22 05:40: Sodium 142, Potassium 3.7, Chloride 111 H, Carbon Dioxide 26.0, Anion Gap 5, BUN 10, Creatinine 1.20, Estim Creat Clear Calc 45.63, Est GFR (MDRD) Af Amer 74, Est GFR (MDRD) Non-Af 61, BUN/Creatinine Ratio 8.3 L, Glucose 97, Calcium 8.0 L, Total Bilirubin 0.40, AST 14 L, ALT 15 L, Alkaline Phosphatase 38 L, Total Protein 5.6 L, Albumin 2.3 L, Globulin 3.3, Albumin/Globulin Ratio 0.7 L Microbiology: Microbiology 01/16/22 08:12 Blood Culture (Wb) - Anticubital Left Blood Culture - Final No growth in 5 days. 01/16/22 08:14 Blood Culture (Wb) - Anticubital Right Blood Culture - Final No growth in 5 days. 01/16/22 17:50 Urine Catheter - Dumont Urine Culture - Final Culture exhibits no growth. 01/16/22 15:00 Gastric Fluid/Contents Gastric Occult Blood - Final Occult Blood Positive D/C Instructions Discharge Diet: Light diet - advance as tolerated (Soft diet, low fatty/oral content for 3 days.) Call your doctor if you observe: Fever of 101 or Higher, Coldness, Increased Pain, Numbness or Tingling, Change in Color, Inability to urinate, Inability to have a bowel movement, Shortness of breath, Dizziness, Fainting spells, Swelling in the ankles, Chest pain, Prolonged hiccupping, Increased palpitations (irregular heartbeat), Calf discomfort and Uncontrolled pain Meaningful Use Info Meaningful Use Diagnoses (Choose all that apply): None applicable Discharge Plan Admission Admit Date/Time: 01/16/22 09:17 Primary Reason for Your Visit: Small bowel obstruction Attending Provider: Jose Combs Primary Care Provider: Dayron Adamson Consulting Providers: Andi Meyers ; Luis Cardenas ; Ronald Diego ; Jayy Harrington ; Dino Thomson ; Bharti Tracey METALLOGRAPHY TEACHER ; Sydney Concepcion Discharge Orders/Prescriptions Prescriptions: New lactulose 20 gram/30 mL Solution 20 g PO BID PRN (Reason: constipation) Qty: 1200 0RF ciprofloxacin HCl [Cipro] 500 mg tablet 500 mg PO BID Qty: 5 0RF metronidazole 500 mg tablet 500 mg PO Q8H 2 Days Qty: 6 0RF pantoprazole [Protonix] 40 mg tablet,delayed release (DR/EC) 40 mg PO DAILY Qty: 30 1RF tamsulosin 0.4 mg Capsule 0.4 mg PO DAILY@1730 Qty: 30 0RF amiodarone 200 mg tablet 200 mg PO BID Qty: 60 0RF Rx Instructions: 200 mg 2 times daily for 7 days, last on 01/27/2022 and then 200 mg once daily to continue Continued acetaminophen 325 MG tablet 650 mg PO Q6H PRN PRN (Reason: Fever) 0RF methimazole 5 mg tablet 15 mg PO DAILY Label Comments: TAKE 3 TABLETS BY MOUTH ONCE DAILY metoprolol tartrate 50 mg tablet 50 mg PO BID Qty: 180 3RF Rx Instructions: Hold for heart less than 60 or systolic blood pressure less than 100 mmHg. apixaban 5 mg tablet 5 mg PO BID Qty: 180 3RF Rx Instructions: Hold if platelet count drops less than 50,000 or hemoglobin less than 8 g% furosemide [Lasix] 40 mg tablet 40 mg PO DAILY Qty: 90 3RF lisinopril 5 mg tablet 5 mg PO DAILY Qty: 90 3RF Referrals / Follow Up: Mandeep Jung MD [Med Staff - Active Staff] - Within 1 Month (FOR Afib) Luis Cardenas MD [Med Staff - Active Staff] - Within 2 Weeks (FOR small bowel obstruction.) Dayron Adamson MD [Primary Care Provider] - Disposition Disposition (needs filled in before D/C Order can be placed): Home, Self Care Charges/Coding Visit Charges Inpatient E&M: 29924 Disch Hosp
--- NOTE | 2022-01-21 16:04 | CASEMGMT ---
Addendum entered by Leticia Juarez 01/21/22 16:39: Call back from Stephenie at [facility] and she states they can accept pt with SOC 01/23/22. [place] AN CM Original Note: Pt's daughter here and requests this RN CM to room. Daughter is asking about a w/c for pt then realized that the pt's was confused and that [facility] was recommended and already in room for discharge. Daughter then asks about MOW's, house cleaning, HHC, etc. This RN CM provided daughter with a list of [facility] providers including quality and resource use data and consistent with the pt's preferred geographic region, medical needs, and insurance network. Daughter requests multiple times to speak with Francisco quezada. Daughter then inquires about meds and d/c instructions. Troy quezada and was awaiting daughter to go over D/C instructions and daughter updated. Daughter then chooses [facility], [facility] and [facility] and states [facility] would be first choice. Call to Stephenie at [facility] with referral for SN, PT/OT, BHARATI edwards. CM to follow. [place] AN CM
--- NOTE | 2022-01-21 16:15 | CASEMGMT ---
SW spoke with patient and her family per their request. Patient and her daughter were asking about [employer] and private duty. SW provided them with the private duty list. SW told them SW can make the referral for [employer]. They asked that SW have [employer] call patient's daughter, Aida. Lillian Ortega [employer]
[2022-01-21 16:20] VITALS: BP 103/68; PULSE 92; RESP 18; TEMP 36.4; O2SAT 100
--- NOTE | 2022-01-22 08:52 | CASEMGMT ---
SW submitted a referral for [employer] for patient and his via [employer] ([employer]) website. Lillian Ortega [employer]
== END 2022-01-21 18:53 | disposition home or self-care (01) | DRG 871 ==
LOC: ED 09:18 → ICU 09:38 → PCU 01-17 15:49
PROVIDERS: Admitting Provider Internal Medicine; Emergency Provider Emergency Medicine; PCP Family Medicine; Visit Provider Internal Medicine
DX: A41.9 Sepsis, unspecified organism (principal); R57.1 Hypovolemic shock; R65.21 Severe sepsis with septic shock; N17.9 Acute kidney failure, unspecified; E87.2 Acidosis; K56.50 Intestinal adhesions [bands], unspecified as to partial versus complete obstruction; I48.19 Other persistent atrial fibrillation; I50.32 Chronic diastolic (congestive) heart failure; E86.0 Dehydration; E83.39 Other disorders of phosphorus metabolism; I11.0 Hypertensive heart disease with heart failure; E05.00 Thyrotoxicosis with diffuse goiter without thyrotoxic crisis or storm; K40.90 Unilateral inguinal hernia, without obstruction or gangrene, not specified as recurrent; E03.9 Hypothyroidism, unspecified; E86.1 Hypovolemia; I34.0 Nonrheumatic mitral (valve) insufficiency; E87.6 Hypokalemia; D18.03 Hemangioma of intra-abdominal structures; Z79.01 Long term (current) use of anticoagulants
CPT/HCPCS: 36415; 36569; 71045; 74018; 74019; 74176; 80053; 81001; 82271; 82962; 83605; 83735; 84100; 84439; 84443; 84481; 84484; 85014; 85018; 85025; 85610; 85730; 87040; 87086; 93005; 93306; 94762; 97110; 97116; 97163; 97165; 97530; 97535; 97802; 99251; 99285; J7030; J7040; J7050; J7120; A4216; G0463; J0744